=== PATIENT | male | born 1960 | race Caucasian/White ===

== ENCOUNTER 2017-03-16 10:15 | Inpatient (IN) | payer OTHER ==
[~2017-03-16] VITALS: Ht 180.3 cm; Wt 103.0 kg
[~2017-03-16 10:15] MED LIST: ASPEC81 PO; CYCL10TA6 PO; FLAX100025 PO; GARL400T4 PO; IBUP-103 PO; LISI-787 PO; METF-384 PO; MULT-506 PO; OMEGCAP2 PO
[2017-03-16] MEDS ORDERED: ALLO300T2 PO (10:48)
[2017-03-16] MEDS ORDERED: LOSA50TA6 PO (10:49)
[2017-03-16] MEDS ORDERED: CRS/10 PO (10:50)
[2017-03-16] MEDS ORDERED: AMLO-110 PO (10:51)
[2017-03-16 10:52] LABS: HEMATOCRIT 42.3 % (42-52); MEAN CELL VOLUME 93.4 fL (80-100); MEAN CORPUSCULAR HEMOGLOBIN 32.5 pg (25-34); MEAN CORPUSCULAR HGB CONC 34.8 g/dl (32-36); MEAN PLATELET VOLUME 10.5 fL (7.4-10.4); PLATELET COUNT 208 K/uL (130-400); RED BLOOD COUNT 4.53 M/uL (4.7-6.1); WHITE BLOOD COUNT 6.03 K/uL (4.8-10.8)
[2017-03-16] MEDS ORDERED: ASPI81TA28 PO (10:53)
[2017-03-16] MEDS ORDERED: ASPI325T45 PO (10:53)
[2017-03-16 11:00] LABS: PARTIAL THROMBOPLASTIN RATIO 1.2; PROTHROMBIN TIME (PATIENT) 10.3 SECONDS (9.0-12.0)
[2017-03-16 11:07] LABS: BUN/CREATININE RATIO 13.8 (10-20); CALCIUM 8.7 mg/dl (8.5-10.1)
[2017-03-16 11:12] LABS: ALB/GLOB RATIO 1.1 (0.9-2); CKMB/CK RATIO 3.4 (0-3.0)
--- NOTE | 2017-03-16 11:16 | DIAGNOSTIC IMAGING REPORT ---
CHEST ONE VIEW PORTABLE CLINICAL HISTORY: Atypical chest pain. Back pain. Sweating. COMPARISON STUDY: 08/25/2014 FINDINGS: The heart is the upper limits of normal in size. There is no failure. No focal pulmonary consolidation. There are no pleural effusions.[ IMPRESSION: No active disease in the chest. Electronically signed by: Tyrell Newell M.D. 03/16/2017 11:15 AM Dictated Date/Time: 03/16/2017 11:14 AM
[2017-03-16] MEDS ORDERED: NITROGLYCERIN 0.4 MG SL PER TAB CHARGE SL PRN (11:30)
[2017-03-16] MEDS ORDERED: OPTIRAY 320 IV PRN (11:45)
--- NOTE | 2017-03-16 12:23 | DIAGNOSTIC IMAGING REPORT ---
CT ANGIOGRAPHY THE CHEST WITHOUT AND WITH CONTRAST CLINICAL HISTORY: Chest pain rating to the back. Hypertension. COMPARISON STUDY: Noncontrast chest CT dated 08/31/2013 FINDINGS: Unenhanced images are obtained through the chest. The study was then repeated in a dynamic helical fashion during intravenous administration of 91 cc Optiray 320. MIP imaging was performed. On noncontrast images, there is no evidence of acute aortic hematoma. There are coronary artery calcifications present. Postcontrast images reveal no evidence of thoracic aortic aneurysm or dissection. There are no findings to indicate acute pulmonary embolism. No pathologically enlarged axillary, hilar, or mediastinal lymph nodes are visualized. There is no pneumothorax. There is pulmonary emphysema. There are dependent atelectatic changes. There are no pleural effusions. There are no areas of airspace consolidation to indicate a pneumonia. There is a 7 x 4 mm tubular opacity within the left upper lobe as visualized in image #[id number]. This area was obscured the prior 2013 study secondary to a pneumonia. There is a calcified granuloma within the right lung apex. There is a 3 mm solid left lower lobe point nodule as visualized in image #[id number]. This nodule remains unchanged from the prior 2013 study. There is a calcified granuloma within the lingula. IMPRESSION: 1. No evidence of thoracic aortic aneurysm or dissection 2. Emphysema 3. 7 x 4 mm solid, elliptical nodule within the left upper lobe. Follow-up per Fleischner criteria is recommended. Please refer to below summary of Fleischner criteria recommendations for follow-up of incidental CT nodules (Braulio Flores, Guidelines for management of small pulmonary nodules detected on CT scans: A statement from the Fleischner Society, Radiology 237: [phone].) SOLID NODULES Solitary nodule size: <6 mm * low risk patients: no follow-up needed * high risk patients: optional CT at 12 months Solitary nodule size: 6-8 mm * low risk patients: follow-up at 6-12 months, then consider further follow-up at 18-24 months * high risk patients: initial follow-up CT at 6-12 months and then at 18-24 months if no change Solitary nodule size: >8 mm * either low or high risk patients - consider follow-up CT at 3 months, and/or CT-PET, and/or biopsy Multiple nodules size: <6 mm * low risk patients: no routine follow-up * high risk patients: optional CT at 12 months Multiple nodules size: 6-8 mm * low risk patients: follow-up at 3-6 months, then consider further follow-up at 18-24 months * high risk patients: follow-up at 3-6 months, then at 18-24 months if no change Multiple nodules size: >8 mm * low risk patients: follow-up at 3-6 months, then consider further follow-up at 18-24 months * high risk patients: follow-up at 3-6 months, then at 18-24 months if no change Note: newly detected indeterminate nodule in persons 35 years of age or older. * low risk patients: minimal or absent history of smoking and/or other known risk factors * high risk patients: history of smoking or of other known risk factors (e.g. first degree relative with lung cancer, or exposure to asbestos, radon, uranium) * if a nodule up to 8 mm is partly solid or is ground glass further follow-up is required after 24 months to exclude possible slow growing adenocarcinoma (RAFA) SUBSOLID NODULES Solitary pure ground-glass nodule * nodule size <6 mm - no CT follow-up required * nodule size >=6 mm - follow-up CT at 6-12 months, then every 2 years until 5 years Solitary part-solid nodule * nodule size <6 mm - no CT follow-up required * nodule size >=6 mm - follow-up CT at 3-6 months. If unchanged, and solid component remains <6 mm, then annual follow-up for 5 years Multiple subsolid nodules * nodule size <6 mm - follow-up CT at 3-6 months, consider further follow-up at 2 and 4 years if stable * nodule size >=6 mm - follow-up CT at 3-6 months, subsequent management based on the most suspicious nodule(s) Electronically signed by: Tyrell Newell M.D. 03/16/2017 12:22 PM Dictated Date/Time: 03/16/2017 12:12 PM
--- NOTE | 2017-03-16 12:24 | DIAGNOSTIC IMAGING REPORT ---
CT ANGIOGRAM OF THE ABDOMEN AND PELVIS CLINICAL HISTORY: Atypical chest pain radiating to the back. COMPARISON STUDY: Abdominal CT dated 10/02/2009. TECHNIQUE: Following the IV administration of 91 cc of Optiray 320, CT angiogram of the abdomen and pelvis was performed from the lung bases the proximal femora. Images are reviewed in the axial, sagittal, and coronal planes. 3-D MIPS images are created and assessed. IV contrast was administered without complication. FINDINGS: Lower chest: The heart is normal in size and without pericardial effusion. There is bibasilar atelectasis. The lung bases are otherwise clear. Liver: The contrast-enhanced liver is enlarged, measuring 19.6 cm in length. The liver demonstrates diffusely diminished attenuation consistent with hepatic steatosis. Fatty sparing is noted adjacent to gallbladder fossa. There is no intrahepatic or ductal dilatation. The main portal veins appear patent. Gallbladder: Small gallstones are identified. The gallbladder is otherwise normal in appearance. Spleen: The spleen is enlarged measuring 15.4 cm in length. Pancreas: Unremarkable. Adrenal glands: Unremarkable. Kidneys: The contrast enhanced kidneys demonstrate cortical atrophy and are without hydronephrosis. The kidneys enhance symmetrically. There are bilateral renal cysts. The largest is on the right and measures up to 3.6 cm. Abdominal aorta and iliac arteries: There is moderate atherosclerotic calcification and mild ectasia of the abdominal aorta and iliac arteries. There is less than 50% luminal narrowing in the distal abdominal aorta secondary to soft plaque. There is also less than 50% stenosis of the left common iliac artery secondary to soft plaque. There is no aneurysm or dissection is seen involving the abdominal aorta or iliac arteries. The right common iliac artery, as well as the bilateral internal and extra iliac arteries and in the bilateral common femoral arteries are widely patent. Major branches of the abdominal aorta: The celiac trunk, superior mesenteric, and inferior mesenteric arteries are widely patent. Hepatic arterial anatomy is conventional. The splenic artery is patent. Single bilateral renal arteries are widely patent. Bowel: The small bowel and colon are normal in course and caliber. There is mild colonic diverticulosis without CT evidence of acute diverticulitis. Mild to moderate colonic fecal retention is observed. The appendix is surgically absent. Peritoneum: There is no intraperitoneal free air or abdominal ascites. There is a small fat-containing umbilical hernia. Lymphadenopathy: None. Pelvic viscera: The bladder, prostate, and seminal vesicles are normal as imaged. Skeletal structures: The skeletal structures are osteopenic. Mild lumbosacral spondylosis is observed. No lytic or blastic bony lesions are seen. IMPRESSION: 1. Atherosclerotic plaque with no aneurysm or dissection identified involving the abdominal aorta. 2. Unremarkable CT angiogram of the major branches of the abdominal aorta. 3. There are no acute infectious or inflammatory findings in the abdomen or pelvis. 4. Hepatomegaly and hepatic steatosis. 5. Splenomegaly. 6. Mild colonic diverticulosis without CT evidence of acute diverticulitis. 7. Additional findings as above. Electronically signed by: Marty Womack M.D. 03/16/2017 12:23 PM Dictated Date/Time: 03/16/2017 12:12 PM
[2017-03-16 12:30] VITALS: O2SAT 98; Ht 180.3 cm; Wt 103.0 kg
[2017-03-16] MEDS ORDERED: ONDANSETRON INJ 2 MG/ML 2 ML VIAL IV PRN (13:00)
[2017-03-16] MEDS ORDERED: GLUCAGON FOR INJ 1 MG VIAL SQ PRN (13:30)
[2017-03-16] MEDS ORDERED: GLUCOSE 40% GEL 15 GM TUBE PO PRN (13:30)
[2017-03-16] MEDS ORDERED: GLUCOSE 10 TABS/TUBE PO PRN (13:30)
[2017-03-16] MEDS ORDERED: DEXTROSE 50% 50 ML SYR IV PRN (13:30)
--- NOTE | 2017-03-16 13:58 | History and Physical ---
History & Physical Date & Time of Service: Mar 16, 2017 ~ 12:30 Chief Complaint: Chest/Back Pain, Sweating, Dry Heaves Primary Care Physician: Harsh Perez M.D.([place]) History of Present Illness 57 year old male who presents to the ER with chest and back pain, diaphoresis, and dry heaves. Patient reports his symptoms began last night while sitting on the couch. He reports they came on suddenly. He reports he felt the back pain first. He describes it as located between his shoulder blades and it was a stabbing pain. He reports that shortly after he developed left sided chest pressure that was radiating into his left arm. He felt as though his heart was beating hard. He reports associated diaphoresis and nausea with dry heaves. He denies shortness of breath, lightheadedness, dizziness, or syncope. He reports several of these episodes last night. He notes that his symptoms got better when he was walking around or if he were to lay in a certain position. He was able to fall asleep and sleep until about 0530. He reports he was initial asymptomatic however they returned around 0730 this morning. He then presented for the ER for evaluation. He was given nitroglycerin and had significant improvement in his pain. Patient reports he otherwise has been feeling well recently. He reports tolerating daily activities without any problem. He denies lower extremity edema or orthopnea. No fever or chills. He denies abdominal pain , vomiting, or diarrhea. No urinary symptoms. In the ER, patient's BP was elevated as high as 202/106. BP improved with nitro. CT was negative for dissection. POC trop 0.230, EKG shows an old RBBB. Of note, patient took a full doses aspirin at home this morning. 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 Surgical Problems: (1) History of appendectomy Status: Chronic Family History FH: CABG (coronary artery bypass surgery) FATHER (in his late 70s) negative for premature CAD Social History Smoking Status: Current Every Day Smoker (1/2 PPD) Alcohol Use: 3 drinks/night 3-4 times/week Occupational Status: employed Immunizations History of Influenza Vaccine: Yes Influenza Vaccine Date: Oct 18, 2015 History of Tetanus Vaccine?: Yes Tetanus Immunization Date: Jun 02, 2013 History of Pneumococcal: Yes Pneumococcal Date: May 26, 2007 Multi-Drug Resistant Organisms History of MDRO: No Allergies Coded Allergies: Albuterol (Verified Allergy, Severe, SHORTNESS OF BREATH/THROAT CLOSING, ) Ipratropium (Verified Allergy, Severe, SHORTNESS OF BREATH/THROAT CLOSING , 03/16/17) Home Medications Scheduled Allopurinol (Zyloprim), 300 MG PO DAILY Amlodipine (Norvasc), 5 MG PO DAILY Aspirin (Aspirin Ec), 81 MG PO DAILY Losartan Potassium (Cozaar), 50 MG PO DAILY Metformin Hcl (Glucophage), 1,000 MG PO DAILY Multivitamin (Multivitamin), 1 TAB PO DAILY [place]-3 Fatty Acids (Fish Oil), 2 CAP PO DAILY Rosuvastatin Calcium (Crestor), 10 MG PO DAILY Scheduled PRN Ibuprofen Tab (Advil), 200-600 MG PO Q4H PRN for Pain Review of Systems ROS per HPI, all other systems reviewed and negative Physical Exam Vital Signs Date Time Temp Pulse Resp B/P (MAP) Pulse Ox O2 Delivery O2 Flow Rate FiO2 03/16/17 13:06 67 03/16/17 12:53 71 18 118/82 98 Room Air 03/16/17 12:30 98 Room Air 03/16/17 12:26 77 16 133/76 97 Room Air 03/16/17 11:44 77 16 154/86 95 Room Air 03/16/17 11:23 70 16 184/95 97 Room Air 202/106 03/16/17 11:11 68 03/16/17 10:46 96 Room Air 03/16/17 10:20 36.9 80 18 149/80 97 Room Air General Appearance: no apparent distress Head: normocephalic Eyes: normal inspection ENT: hearing grossly normal Neck: supple, no JVD Respiratory/Chest: lungs clear, normal breath sounds, no respiratory distress Cardiovascular: regular rate, rhythm, no edema, normal peripheral pulses Abdomen/GI: normal bowel sounds, non tender, soft Extremities/Musculoskelatal: normal inspection, no calf tenderness Neurologic/Psych: no motor/sensory deficits, alert, normal mood/affect, oriented x 3 Skin: normal color, warm/dry Diagnostics Laboratory Results Results Past 24 Hours Test 03/16/17 10:35 03/16/17 10:45 03/16/17 13:03 03/16/17 13:04 Range/Units White Blood Count 6.03 4.8-10.8 K/uL Red Blood Count 4.53 4.7-6.1 M/uL Hemoglobin 14.7 14.0-18.0 g/dL Hematocrit 42.3 42-52 % Mean Corpuscular Volume 93.4 80-100 fL Mean Corpuscular Hemoglobin 32.5 25-34 pg Mean Corpuscular Hemoglobin Concent 34.8 32-36 g/dl RDW Standard Deviation 43.0 36.4-46.3 fL RDW Coefficient of Variation 12.7 11.5-14.5 % Platelet Count 208 130-400 K/uL Mean Platelet Volume 10.5 7.4-10.4 fL Prothrombin Time 10.3 9.0-12.0 SECONDS Prothromb Time International Ratio 1.0 0.9-1.1 Activated Partial Thromboplast Time 31.7 21.0-31.0 SECONDS Partial Thromboplastin Ratio 1.2 Sodium Level 139 136-145 mmol/L Potassium Level 4.0 3.5-5.1 mmol/L Chloride Level 105 98-107 mmol/L Carbon Dioxide Level 25 21-32 mmol/L Anion Gap 9.0 3-11 mmol/L Blood Urea Nitrogen 14 7-18 mg/dl Creatinine 1.00 0.60-1.40 mg/dl Est Creatinine Clear Calc Drug Dose 97.4 ml/min Estimated GFR () 95.1 Estimated GFR (Non- 82.0 BUN/Creatinine Ratio 13.8 10-20 Random Glucose 216 70-99 mg/dl Calcium Level 8.7 8.5-10.1 mg/dl Total Bilirubin 0.7 0.2-1 mg/dl Aspartate Amino Transf (AST/SGOT) 16 15-37 U/L Alanine Aminotransferase (ALT/SGPT) 37 12-78 U/L Alkaline Phosphatase 92 45-117 U/L Total Creatine Kinase 73 39-308 U/L Creatine Kinase MB 2.5 0.5-3.6 ng/ml Creatine Kinase MB Ratio 0-3.0 Total Protein 7.1 6.4-8.2 gm/dl Albumin 3.7 3.4-5.0 gm/dl Globulin 3.4 2.5-4.0 gm/dl Albumin/Globulin Ratio 1.1 0.9-2 Bedside Troponin I 0.230 0-0.045 ng/ml Diagnostic Radiology CXR IMPRESSION: No active disease in the chest. CTA CHEST IMPRESSION: 1. No evidence of thoracic aortic aneurysm or dissection 2. Emphysema 3. 7 x 4 mm solid, elliptical nodule within the left upper lobe. Follow-up per Fleischner criteria is recommended. CTA ABD/PELVIS IMPRESSION: 1. Atherosclerotic plaque with no aneurysm or dissection identified involving the abdominal aorta. 2. Unremarkable CT angiogram of the major branches of the abdominal aorta. 3. There are no acute infectious or inflammatory findings in the abdomen or pelvis. 4. Hepatomegaly and hepatic steatosis. 5. Splenomegaly. 6. Mild colonic diverticulosis without CT evidence of acute diverticulitis. 7. Additional findings as above. Impression Assessment and Plan CHEST PAIN - admit to tele - patient presenting with chest and back pain since last evening; symptoms somewhat atypical however due to elevated troponin and patient's risk factors ( HTN, DM, HLD, tobacco use), will go ahead treat as NSTEMI for now - CT negative for dissection - also consider hypertensive urgency as source of symptoms - POC trop 0.230, will check serum and continue to cycle enzymes - IV Heparin, increase Crestor to 40mg, aspirin - holing on beta rachel due to hx of WPW - resting echo - PRN nitro and EKG with further chest pain - cardio consult HYPERTENSIVE URGENCY - BP as high as 202/106 in the ED - improved with SL nitro - for now, will continue home doses of losartan and amlodipine, make adjustments if needed DM II - hgb a1c 6.3 01/2016 - will hold metformin an utilize SSI while hospitalized HLD - statin HX WPW, S/P ABLATION DVT PROPHYLAXIS - IV Heparin DISPO - In my clinical judgment this beneficiary meets acute admission criteria, established by [facility], that includes being hospitalized through two midnights. Attending Note: Patient is a 57 yr male presents for evaluation of sudden onset of left sided sharp, positional chest pain and back pain associated with diaphoresis, nausea which improved with NTG while in ED. He presented with Hypertensive Urgency, mild elevation in troponin. Physical Exam: Vitals signs as noted above General Appearance:Moderately built and nourished, no apparent distress Head: normocephalic, Atraumatic Eyes: normal inspection, EOMI, PERRL Neck: supple, no JVD, Trachea midline Respiratory/Chest: Normal breath sounds, CTA Cardiovascular: S1, S2, No murmur Abdomen/GI:Soft, Non tender, Bowel sounds present Extremities/Musculoskelatal:normal inspection, no edema Neurologic/Psych:AAOX3, grossly no focal neurological deficits Skin:normal color,warm Assessment and Plan: Atypical chest pain: r/o ACS Risk factors: DM II, HTN, HLP, Tobacco and alcohol use Start IV Heparin, trend cardiac enzymes Monitor in Tele Check ECHO, cardiology consulted Continue Aspirin, stains Imaging studies negative for dissection Left Upper Lobe Pulmonary Nodule: Incidental finding on CT Given h/o smoking, repeat CT is recommended as outpatient I personally reviewed the record. Patient is interviewed and examined at bedside. Patient's care is coordinated with Leslie Alfaro DIRECTOR GLOBAL DEVELOPMENT. Please refer to the documentation above for details of patient's presentation and for discussion of other issues. Level of Care Telemetry VTE Prophylaxis VTE Risk Assessment Done? Y/N: Yes Risk Level: Moderate Given or contraindicated: Other Anticoagulation
[2017-03-16] MEDS ORDERED: PNEUMOCOCCAL POLYSACCHARIDES 25 MCG/0.5 ML VIAL/SYR IM. ONE (14:00)
[2017-03-16] MEDS ORDERED: PNEUMOCOCCAL ADMINISTRATION CHARGE ONE (14:00)
[2017-03-16 15:33] VITALS: BP 148/86; PULSE 59; TEMP 37; O2SAT 97
[2017-03-16] MEDS: HEPARIN 25,000 UNIT/500ML D5W 500 ML IV PRN (15:37)
[2017-03-16] MEDS ORDERED: NITROGLYCERIN 2% OINTMENT 30GM TUBE ONE (16:22)
--- NOTE | 2017-03-16 16:34 | Cardiology Consultation ---
Cardiology Consultation Date of Consultation: Mar 16, 2017 Requesting Physician: seven Attending Circular Ripsaw Operator: gavin History of Present Illness Patient is a 57 year old male S/P ablation for WPW in 2006 presents with upper back pain radiating to chest. Started last night and resolved and then began again this AM. No prior hx of CAD. Negative CT for dissection and aneurysm. Troponin slightly elevated. Old RBBB on EKG. History Social History: Smoker Family History: Significant for HPT and Cholesterol. Past Medical/Surgical History Problem List: Medical Problems: (1) DM (diabetes mellitus) (2) Gout (3) HLD (hyperlipidemia) (4) HTN (hypertension) (5) WPW (Andrg-Zrmvxcvfl-Ioobf syndrome) Surgical Problems: (1) History of appendectomy Review Of Systems General: The patient denies weight change, night sweats, fever, chills. Head: The patient denies headache and prior head trauma. Cardiovascular: The patient denies chest pain or chest discomfort, dyspnea on exertion, palpitations, PND, orthopnea, edema, spontaneous shortness of breath, syncope and near syncope. Pulmonary: The patient denies cough, wheeze, pleurisy, hemoptysis, sputum, and excessive snoring. Gastrointestinal: The patient denies nausea, vomiting, diarrhea, constipation, bloating, hematemesis, hematochezia, and abdominal pain. Skin: The patient denies diaphoresis and rash. Musculoskeletal: The patient denies joint pain, joint swelling, myalgia, back pain, neck pain and prior injuries. Neurological: The patient denies prior stroke and seizures Allergies Coded Allergies: Albuterol (Verified Allergy, Severe, SHORTNESS OF BREATH/THROAT CLOSING, ) Ipratropium (Verified Allergy, Severe, SHORTNESS OF BREATH/THROAT CLOSING , 03/16/17) Medications Reported Home Medications Medications Dose Route/Sig Max Daily Dose Days Date Category Aspirin Ec (Aspirin) 81 Mg Tab 81 Mg PO DAILY 03/16/17 Reported Norvasc (Amlodipine Besylate) 5 Mg Tab 5 Mg PO DAILY 03/16/17 Reported Crestor (Rosuvastatin Calcium) 10 Mg Tab 10 Mg PO DAILY 03/16/17 Reported Cozaar (Losartan Potassium) 50 Mg Tab 50 Mg PO DAILY 03/16/17 Reported Zyloprim (Allopurinol) 300 Mg Tab 300 Mg PO DAILY 03/16/17 Reported Advil (Ibuprofen) 200 Mg Tab 200-600 Mg PO Q4H PRN 08/25/14 Reported Glucophage (Metformin Hcl) 1,000 Mg Tab 1,000 Mg PO DAILY 08/25/14 Reported Fish Oil ([place]-3 Fatty Acids) 1 Cap Cap 2 Cap PO DAILY 08/18/13 Reported Multivitamin (Multivitamins) Tab 1 Tab PO DAILY 10/02/09 Reported Physical Exam Vital Signs (Last 8hrs): Last 8 Hrs Date Time Temp Pulse Resp B/P (MAP) Pulse Ox O2 Delivery O2 Flow Rate FiO2 03/16/17 15:33 37.0 59 19 148/86 (106) 97 Room Air 03/16/17 15:32 36.9 67 16 126/77 96 03/16/17 14:56 67 16 126/77 96 Room Air 03/16/17 13:06 67 03/16/17 12:53 71 18 118/82 98 Room Air 03/16/17 12:30 98 Room Air 03/16/17 12:26 77 16 133/76 97 Room Air 03/16/17 11:44 77 16 154/86 95 Room Air 03/16/17 11:23 70 16 184/95 97 Room Air 202/106 03/16/17 11:11 68 03/16/17 10:46 96 Room Air 03/16/17 10:20 36.9 80 18 149/80 97 Room Air General Appearance: Alert and Oriented x3. NAD. Head: Normocephalic Atraumatic. Eyes: PERRLA, EOMI, conjunctiva and sclera clear Neck: Supple. No carotid bruits noted. No JVD. No HJD. Respiratory: Breath sounds clear to auscultation bilaterally. No w/r/r. Cardiovascular: Reg rate and rhythm. S1 and S2 noted. No murmurs, rubs, gallops. PMI non displace. Abdomen: Normal bowel sounds, soft nontender. no abdominal bruits. Extremities: No edema, no clubbing or cyanosis. distal pulses 2/4 bilaterally. Neuro: No focal deficits. Psychiatric: Normal affect. Data Last 24 Hours Test 03/16/17 10:35 03/16/17 10:45 03/16/17 16:00 White Blood Count 6.03 K/uL Red Blood Count 4.53 M/uL Hemoglobin 14.7 g/dL Hematocrit 42.3 % Mean Corpuscular Volume 93.4 fL Mean Corpuscular Hemoglobin 32.5 pg Mean Corpuscular Hemoglobin Concent 34.8 g/dl RDW Standard Deviation 43.0 fL RDW Coefficient of Variation 12.7 % Platelet Count 208 K/uL Mean Platelet Volume 10.5 fL Prothrombin Time 10.3 SECONDS Prothromb Time International Ratio 1.0 Activated Partial Thromboplast Time 31.7 SECONDS Partial Thromboplastin Ratio 1.2 Sodium Level 139 mmol/L Potassium Level 4.0 mmol/L Chloride Level 105 mmol/L Carbon Dioxide Level 25 mmol/L Anion Gap 9.0 mmol/L Blood Urea Nitrogen 14 mg/dl Creatinine 1.00 mg/dl Est Creatinine Clear Calc Drug Dose 97.4 ml/min Estimated GFR () 95.1 Estimated GFR (Non- 82.0 BUN/Creatinine Ratio 13.8 Random Glucose 216 mg/dl Calcium Level 8.7 mg/dl Total Bilirubin 0.7 mg/dl Aspartate Amino Transf (AST/SGOT) 16 U/L Alanine Aminotransferase (ALT/SGPT) 37 U/L Alkaline Phosphatase 92 U/L Total Creatine Kinase 73 U/L Creatine Kinase MB 2.5 ng/ml Creatine Kinase MB Ratio 3.4 Troponin I 0.302 ng/ml Total Protein 7.1 gm/dl Albumin 3.7 gm/dl Globulin 3.4 gm/dl Albumin/Globulin Ratio 1.1 Bedside Troponin I 0.230 ng/ml EKG:sinus RBBB Assessment & Plan R/O ACS. Continue cardiac markers. Beta rachel and nitrates. Agree with heparin
[2017-03-16] MEDS: ROSUVASTATIN CALCIUM 20 MG TAB PO SCH (17:47)
[2017-03-16] MEDS: INSULIN ASPART 100 UNITS/ML 3 ML PEN SC SCH ×2 (17:51→20:46)
--- NOTE | 2017-03-16 18:48 | EMERGENCY ROOM VISIT NOTE ---
ED Visit Note First contact with patient: 10:59 Chief Complaint: Chest pain. History of Present Illness: Mr. Davila is a 57 year-old white male who ambulates into the ED complaining of thoracic back and chest pain. 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 He does report he has a history of diabetes, hypertension, dyslipidemia and is a smoker. He reports his father had significant coronary artery disease and from this but does not remember his age. Patient reports an acute onset of thoracic pain that started at rest approximately 12 hours ago. He reports within a minute of the onset of pain his discomfort radiated into the midsternal area. He describes his discomfort as a stabbing sensation in the thoracic back and a pressure sensation in the chest. At that time he rates his discomfort 8/10. He did note mild improvement when he was sitting up and worsening when he was lying down. He did not take any medications for this discomfort. He reports the pain lasted 5- 6 minutes and then self resolved. Since that time the pain has been he reports he's had additional 5 or 6 episodes of similar symptoms. This morning after waking, approximately 25 minutes ago he had return of his symptoms and it has been constant since. He reports he took 324 mg of aspirin at home prior to coming to the hospital; he reports this is has not affected his discomfort prior to arrival at the hospital. Currently he rates his discomfort 7/10. His current discomfort is exactly like the discomfort he had last night except for has not resolved. Additionally associated with his pain he reports he has been intermittently diaphoretic and mildly lightheaded. Patient denies fevers, chills, skin eruptions, skin color changes, upper respiratory tract symptoms, wheezing, cough, shortness of breath, orthopnea, dependent edema, previous clots, claudication, cramping, recent surgery/ inactivity/extended travel, abdominal pain, nausea, vomiting, diarrhea, constipation, rectal bleeding, black/tarry stools, urinary symptoms, back/flank pain. Review of Systems: As noted above in history of present illness. All body systems were reviewed and found to be negative as noted above. Past Medical History: As previously noted and: (1) DM (diabetes mellitus) (2) Gout (3) HLD (hyperlipidemia) (4) HTN (hypertension) (5) WPW (Yjvme-Quzlescfq-Veutt syndrome) Surgical Problems: (1) History of appendectomy Current Medications: Medications Dose Route/Sig Max Daily Dose Days Date Category Aspirin Ec (Aspirin) 81 Mg Tab 81 Mg PO DAILY 03/16/17 Reported Norvasc (Amlodipine Besylate) 5 Mg Tab 5 Mg PO DAILY 03/16/17 Reported Crestor (Rosuvastatin Calcium) 10 Mg Tab 10 Mg PO DAILY 03/16/17 Reported Cozaar (Losartan Potassium) 50 Mg Tab 50 Mg PO DAILY 03/16/17 Reported Zyloprim (Allopurinol) 300 Mg Tab 300 Mg PO DAILY 03/16/17 Reported Advil (Ibuprofen) 200 Mg Tab 200-600 Mg PO Q4H PRN 08/25/14 Reported Glucophage (Metformin Hcl) 1,000 Mg Tab 1,000 Mg PO DAILY 08/25/14 Reported Fish Oil (Luana-3 Fatty Acids) 1 Cap Cap 2 Cap PO DAILY 08/18/13 Reported Multivitamin (Multivitamins) Tab 1 Tab PO DAILY 10/02/09 Reported Allergies to Medications: Albuterol, ipratropium. Social History: Patient is currently employed; he feels safe in his home environment; he admits to tobacco and alcohol use. Physical Examination: Vital Signs: Date Time Temp Pulse Resp B/P (MAP) Pulse Ox O2 Delivery O2 Flow Rate FiO2 03/16/17 12:53 71 18 118/82 98 Room Air 03/16/17 12:30 98 Room Air 03/16/17 12:26 77 16 133/76 97 Room Air 03/16/17 11:44 77 16 154/86 95 Room Air 03/16/17 11:23 70 16 184/95 97 Room Air 202/106 03/16/17 11:11 68 03/16/17 10:46 96 Room Air 03/16/17 10:20 36.9 80 18 149/80 97 Room Air GENERAL: 57-year-old male in moderate distress due to pain, nontoxic-appearing, afebrile and hemodynamically stable. NEUROLOGICAL: Awake, alert and oriented to person, place and time. Answering questions appropriately and following commands. Normal gait. Good hand eye coordination. SKIN: Warm, dry and pink. No soft tissue eruptions or trauma noted. HEENT: Atraumatic and normocephalic. PERRLA. Sclera white and conjunctiva pink. Oral cavity moist and pink. Pharynx is nonerythematous or edematous. Speech normal. No lymphadenopathy. Trachea midline. No jugular venous distention. No carotid bruits. BACK: No tenderness over the bony spine. No CVA tenderness. THORAX: Lungs sounds are clear to auscultation and equal bilaterally with symmetrical chest wall. No wheezing, rales or rhonchi. No crepitus, tenderness , subcutaneous air or deformities noted. HEART: Regular rate and rhythm. No gallops, rubs or murmurs are appreciated. No lifts, heaves or thrills. PMI is not displaced. ABDOMEN: Flat, soft and nontender. Positive bowel sounds in all quadrants. No pulsating masses, guarding, rigidity or organomegaly. EXTREMITIES: Moves all extremities well on command and with purpose. All distal neurovascular statuses are intact and equal bilaterally. No dependent edema or calf tenderness/cords. ED Course: Patient is assessed as noted above. Laboratory Testing: Test 03/16/17 10:35 03/16/17 10:45 Range/Units White Blood Count 6.03 4.8-10.8 K/uL Red Blood Count 4.53 4.7-6.1 M/uL Hemoglobin 14.7 14.0-18.0 g/dL Hematocrit 42.3 42-52 % Mean Corpuscular Volume 93.4 80-100 fL Mean Corpuscular Hemoglobin 32.5 25-34 pg Mean Corpuscular Hemoglobin Concent 34.8 32-36 g/dl RDW Standard Deviation 43.0 36.4-46.3 fL RDW Coefficient of Variation 12.7 11.5-14.5 % Platelet Count 208 130-400 K/uL Mean Platelet Volume 10.5 7.4-10.4 fL Prothrombin Time 10.3 9.0-12.0 SECONDS Prothromb Time International Ratio 1.0 0.9-1.1 Activated Partial Thromboplast Time 31.7 21.0-31.0 SECONDS Partial Thromboplastin Ratio 1.2 Sodium Level 139 136-145 mmol/L Potassium Level 4.0 3.5-5.1 mmol/L Chloride Level 105 98-107 mmol/L Carbon Dioxide Level 25 21-32 mmol/L Anion Gap 9.0 3-11 mmol/L Blood Urea Nitrogen 14 7-18 mg/dl Creatinine 1.00 0.60-1.40 mg/dl Est Creatinine Clear Calc Drug Dose 97.4 ml/min Estimated GFR () 95.1 Estimated GFR (Non- 82.0 BUN/Creatinine Ratio 13.8 10-20 Random Glucose 216 70-99 mg/dl Calcium Level 8.7 8.5-10.1 mg/dl Total Bilirubin 0.7 0.2-1 mg/dl Aspartate Amino Transf (AST/SGOT) 16 15-37 U/L Alanine Aminotransferase (ALT/SGPT) 37 12-78 U/L Alkaline Phosphatase 92 45-117 U/L Total Creatine Kinase 73 39-308 U/L Creatine Kinase MB 2.5 0.5-3.6 ng/ml Creatine Kinase MB Ratio 3.4 0-3.0 Troponin I 0.302 0-0.045 ng/ml Total Protein 7.1 6.4-8.2 gm/dl Albumin 3.7 3.4-5.0 gm/dl Globulin 3.4 2.5-4.0 gm/dl Albumin/Globulin Ratio 1.1 0.9-2 Hepatitis C Antibody Screen NEG NEG Bedside Troponin I 0.230 0-0.045 ng/ml Chest X-Ray: Was read by myself and the radiologist showing no acute infiltrates , effusions or pneumothorax. Normal heart silhouette and bony anatomy. Chest/Abdominal CTA: Was reviewed by myself and read by the radiologist showing atherosclerotic plaque but no aneurysm or dissection of the thoracic or abdominal aorta. EKG: Was read by myself and reviewed with Dr. rangel; shows normal sinus rhythm with a right bundle-branch block. Ventricular rate [address] changes indicating ischemia, injury or infarction. This was compared to previous from August 2014 and shows no acute changes. No significant changes in bilateral upper extremity blood pressures. Patient was hydrated with normal saline and he was given a nitroglycerin trial; 0.4 mg every 5 minutes for pain. After his trial he subjectively reported he was feeling better but was still experiencing some back discomfort. Additionally in reviewing his vital signs he had a significant improvement of his hypertension. Patient was reassessed multiple times during his stay in the emergency department. Patient's case was reviewed with Dr. Rangel; we agreed on diagnostic approach , treatment, disposition and plan. Patient's case was consulted with case management and Dr. Anderson, hospitalist , for medical admission/observation. Patient was educated about today's findings and instructed on his treatment plan ; he verbalized understanding and agreement with this plan. Clinical Impression: Non-ST wave elevation CT. Decision-Making: Initially my differential diagnosis I considered acute coronary syndrome, thoracic aneurysm, pneumothorax, pneumonia, pulmonary embolism, musculoskeletal disorder, pancreatitis and other causes. Disposition and Plan: Patient be brought in the hospital by the hospitalist service; please see their notes and orders for final disposition and plan.
[2017-03-16 19:13] VITALS: BP 132/72; PULSE 73; TEMP 37.2; O2SAT 95
[2017-03-16] MEDS: ACETAMINOPHEN 325 MG TAB PO PRN (20:47)
[2017-03-16] MEDS: METOPROLOL TARTRATE 25 MG TAB PO SCH (20:49)
[2017-03-16 20:50] VITALS: BP 133/79; PULSE 63
[2017-03-16 22:12] LABS: PARTIAL THROMBOPLASTIN RATIO 2.1
[2017-03-16 23:32] VITALS: BP 119/81; PULSE 59; TEMP 36.8; O2SAT 95
[2017-03-17] VITALS (11 sets, daily range): BP systolic 116–149; BP diastolic 69–99; PULSE 62–71; TEMP 36.4–37.2; O2SAT 93–97
[2017-03-17] MEDS ORDERED: NITROGLYCERIN OINT 2% 1GM PACKET EXT SCH
[2017-03-17 06:28] LABS: ESTIMATED AVERAGE GLUCOSE 140 mg/dl; HA1C FLAG Normal (Normal)
[2017-03-17] MEDS: HEPARIN 25,000 UNIT/500ML D5W 500 ML IV PRN (06:32)
[2017-03-17 06:38] LABS: HEMATOCRIT 40.6 % (42-52); MEAN CORPUSCULAR HEMOGLOBIN 32.4 pg (25-34); MEAN CORPUSCULAR HGB CONC 34.5 g/dl (32-36); MEAN PLATELET VOLUME 10.4 fL (7.4-10.4); PLATELET COUNT 187 K/uL (130-400); RED BLOOD COUNT 4.32 M/uL (4.7-6.1); WHITE BLOOD COUNT 5.53 K/uL (4.8-10.8)
[2017-03-17 06:57] LABS: PARTIAL THROMBOPLASTIN RATIO 2.2
[2017-03-17 07:08] LABS: BUN/CREATININE RATIO 17.8 (10-20); CALCIUM 8.6 mg/dl (8.5-10.1); CREATININE 0.75 mg/dl (0.60-1.40); POTASSIUM 3.7 mmol/L (3.5-5.1)
[2017-03-17 07:11] LABS: CHOLESTEROL/HDL RATIO 6.3
[2017-03-17] MEDS: ASPIRIN 81 MG ECTAB PO SCH (07:54)
[2017-03-17] MEDS: METOPROLOL TARTRATE 25 MG TAB PO SCH ×2 (07:54→22:07)
[2017-03-17] MEDS: LOSARTAN POTASSIUM 50 MG TAB PO SCH (07:54)
[2017-03-17] MEDS: ROSUVASTATIN CALCIUM 20 MG TAB PO SCH (07:54)
[2017-03-17] MEDS: MULTIVITAMIN TAB PO SCH (07:55)
[2017-03-17] MEDS: OMEGA-3 (PURIFIED FISH OIL) 1 GM CAP PO SCH (07:55)
[2017-03-17] MEDS: ALLOPURINOL 300 MG TAB PO SCH (07:55)
[2017-03-17] MEDS: AMLODIPINE BESYLATE 5 MG TAB PO SCH (07:55)
[2017-03-17] MEDS: INSULIN ASPART 100 UNITS/ML 3 ML PEN SC SCH ×4 (08:03→21:00)
[2017-03-17] MEDS: ACETAMINOPHEN 325 MG TAB PO PRN (08:04)
[2017-03-17] MEDS: NITROGLYCERIN 0.4 MG SL PER TAB CHARGE SL PRN ×3 (08:08→08:18)
[2017-03-17] MEDS ORDERED: METOPROLOL TARTRATE 25 MG TAB PO ONE (08:45)
[2017-03-17] MEDS ORDERED: SODIUM CHLORIDE 0.9% 1000ML 1,000 ML IV SCH ×2 (09:30→13:00)
--- NOTE | 2017-03-17 09:45 | Cardiology Follow-Up ---
Subjective General Date of Service: Mar 17, 2017. History of Present Illness The patient is a 57 year old male Allergies Coded Allergies: Albuterol (Verified Allergy, Severe, SHORTNESS OF BREATH/THROAT CLOSING, ) Ipratropium (Verified Allergy, Severe, SHORTNESS OF BREATH/THROAT CLOSING , 03/16/17) Social History Smoking Status: Current Every Day Smoker (1/2 PPD) Hx Tobacco Use In Past Year?: Yes (3 CIGARETTE/DAY) Hx Alcohol Use - Type And Amou: Yes (BOURBON/BEER, 3-4 3X/WEEK) Hx Substance Use - Type And Am: No Physical Exam Vital Signs Last Vital Signs Documentation Date Time Temp Pulse Resp B/P (MAP) Pulse Ox O2 Delivery O2 Flow Rate FiO2 03/17/17 08:19 36.6 66 19 149/99 (116) 93 Room Air Assessment and Plan Laboratory Results Last 24 Hours Test 03/16/17 10:35 03/16/17 10:45 03/16/17 16:00 03/16/17 16:15 White Blood Count 6.03 K/uL Red Blood Count 4.53 M/uL Hemoglobin 14.7 g/dL Hematocrit 42.3 % Mean Corpuscular Volume 93.4 fL Mean Corpuscular Hemoglobin 32.5 pg Mean Corpuscular Hemoglobin Concent 34.8 g/dl RDW Standard Deviation 43.0 fL RDW Coefficient of Variation 12.7 % Platelet Count 208 K/uL Mean Platelet Volume 10.5 fL Prothrombin Time 10.3 SECONDS Prothromb Time International Ratio 1.0 Activated Partial Thromboplast Time 31.7 SECONDS Partial Thromboplastin Ratio 1.2 Sodium Level 139 mmol/L Potassium Level 4.0 mmol/L Chloride Level 105 mmol/L Carbon Dioxide Level 25 mmol/L Anion Gap 9.0 mmol/L Blood Urea Nitrogen 14 mg/dl Creatinine 1.00 mg/dl Est Creatinine Clear Calc Drug Dose 97.4 ml/min Estimated GFR () 95.1 Estimated GFR (Non- 82.0 BUN/Creatinine Ratio 13.8 Random Glucose 216 mg/dl Estimated Average Glucose 140 mg/dl Hemoglobin A1c 6.5 % Calcium Level 8.7 mg/dl Total Bilirubin 0.7 mg/dl Aspartate Amino Transf (AST/SGOT) 16 U/L Alanine Aminotransferase (ALT/SGPT) 37 U/L Alkaline Phosphatase 92 U/L Total Creatine Kinase 73 U/L Creatine Kinase MB 2.5 ng/ml 2.5 ng/ml Creatine Kinase MB Ratio 3.4 Troponin I 0.302 ng/ml 0.370 ng/ml Total Protein 7.1 gm/dl Albumin 3.7 gm/dl Globulin 3.4 gm/dl Albumin/Globulin Ratio 1.1 Hepatitis C Antibody Screen NEG Bedside Troponin I 0.230 ng/ml Test 03/16/17 16:41 03/16/17 20:28 03/16/17 21:41 03/17/17 06:11 Bedside Glucose 118 mg/dl 140 mg/dl Activated Partial Thromboplast Time 54.4 SECONDS 56.9 SECONDS Partial Thromboplastin Ratio 2.1 2.2 Creatine Kinase MB 1.5 ng/ml Creatine Kinase MB Ratio Troponin I 0.336 ng/ml White Blood Count 5.53 K/uL Red Blood Count 4.32 M/uL Hemoglobin 14.0 g/dL Hematocrit 40.6 % Mean Corpuscular Volume 94.0 fL Mean Corpuscular Hemoglobin 32.4 pg Mean Corpuscular Hemoglobin Concent 34.5 g/dl RDW Standard Deviation 43.0 fL RDW Coefficient of Variation 12.5 % Platelet Count 187 K/uL Mean Platelet Volume 10.4 fL Sodium Level 139 mmol/L Potassium Level 3.7 mmol/L Chloride Level 106 mmol/L Carbon Dioxide Level 25 mmol/L Anion Gap 8.0 mmol/L Blood Urea Nitrogen 13 mg/dl Creatinine 0.75 mg/dl Est Creatinine Clear Calc Drug Dose 129.2 ml/min Estimated GFR () 116.4 Estimated GFR (Non- 100.4 BUN/Creatinine Ratio 17.8 Random Glucose 145 mg/dl Calcium Level 8.6 mg/dl Triglycerides Level 256 mg/dl Cholesterol Level 292 mg/dl HDL Cholesterol 46 mg/dl LDL Cholesterol, Calculated 195 mg/dl VLDL Cholesterol, Calculated 51 mg/dl Cholesterol/HDL Ratio 6.3 Test 03/17/17 06:19 03/17/17 08:44 Bedside Glucose 160 mg/dl
--- NOTE | 2017-03-17 09:51 | Cardiology Follow-Up ---
Subjective General Date of Service: Mar 17, 2017. Chief Complaint: follow up chest pain, NSTEMI Pt evaluation today including: conversation w/ patient, physical exam History of Present Illness The patient is a 57 year old male seen in cardiology follow up today with initial consult having been performed yesterday by Dr Juarez. Patient with symptoms of back pain, diaphoresis, and chest pain that have waxed and waned since 03/15/17. Symptoms improved to a 1/10 intensity at the time pt was admitted by the hospitalist service yesterday at about 1 pm. Overnight, topical nitroglycerin was discontinued due to headache. This am at 8- 830 am he had recurrence of his back pain, heavy, perspiration, and chest pain. Repeat EKG this am just before 7am and again at 830 am reveals continued RBBB with new lateral T wave inversions. No ST elevation. Patient received nitroglycerin SL x 3 and his am medications and he is asymptomatic at present (03/17/17, 930 am). A mild flat troponin elevation has been present x 3 at 0.3 ng/ml, most recent measurement was last night at 21:41, and repeat is pending at present. Patient had CT angio yesterday in the ED that excluded acute thoracic or abdominal aortic emergency. Diffuse atherosclerosis plaque is noted in the abdominal Aorta. Allergies Coded Allergies: Albuterol (Verified Allergy, Severe, SHORTNESS OF BREATH/THROAT CLOSING, ) Ipratropium (Verified Allergy, Severe, SHORTNESS OF BREATH/THROAT CLOSING , 03/16/17) Social History Smoking Status: Current Every Day Smoker (1/2 PPD) Hx Tobacco Use In Past Year?: Yes (3 CIGARETTE/DAY) Hx Alcohol Use - Type And Amou: Yes (BOURBON/BEER, 3-4 3X/WEEK) Hx Substance Use - Type And Am: No Physical Exam Vital Signs Last Vital Signs Documentation Date Time Temp Pulse Resp B/P (MAP) Pulse Ox O2 Delivery O2 Flow Rate FiO2 03/17/17 08:19 36.6 66 19 149/99 (116) 93 Room Air Physical Exam Constitutional: Level of Distress: NAD Neck: supple Lungs: Auscultation: no wheezing, no rales/crackles, no rhonchi Cardiovascular: Heart Auscultation: RRR, no murmurs, no rubs, no gallops Abdomen: Inspection & Palpation: soft, non-distended Musculoskeletal: normal Extremities: no edema Neurologic: Gait & Station: pertinent finding (no focal deficits ) Assessment and Plan Assessment and Plan Last Resulted 03/17/17 06:11 Last Resulted 03/17/17 06:11 Past 24 Hours Test 03/16/17 10:35 03/16/17 16:00 03/16/17 16:15 03/16/17 21:41 Range/Units Creatine Kinase MB 2.5 2.5 1.5 0.5-3.6 ng/ml Creatine Kinase MB Ratio 3.4 H 0-3.0 Prothromb Time International Ratio 1.0 0.9-1.1 Prothrombin Time 10.3 9.0-12.0 SECONDS Total Creatine Kinase 73 39-308 U/L Troponin I 0.302 *H 0.370 *H 0.336 *H 0-0.045 ng/ml Test 03/17/17 09:25 Range/Units Summary of TTecho performed 03/17/17 and reviewed independently: The study was technically adequate. There is a small sized anteroseptal wall motion abnormality with hypokinesis of the segments. Ejection Fraction = 55-60%. Grade I diastolic dysfunction, (abnormal relaxation pattern). The aortic valve is not well visualized and therefore the prescence of a bicuspid aortic valve cannot be excluded. The aortic valve is mildly calcified. Borderline to mild aortic valve stenosis is present. Impression: 57 year old male 1. NSTEMI, with acute thoracic and abdominal aorta pathology having been excluded by CT, symptoms are consistent with angina, mild troponin elevation noted, evolving EKG changes with new lateral T wave inversions this am, and small anteroseptal wall motion abnormality 2. Dyslipidemia, LDL 195 mg /dL 3. Ongoing smoking 4. DM2 5. H/o WPW, ablation, chronic RBBB 6. atherosclerotic plaque noted in abdominal aorta on CT 7. AV calcification , borderline to mild , bicuspid AV cannot be excluded. Plan: Increase metoprolol to 25 mg BID. Agree with max dose rosuvastatin 40 mg daily. Case discussed with Dr Muñiz of interventional cardiology who is going to assess patient for potential cardiac catheterization today given recurrent angina this am. NPO except medications. Salena Boudreaux DO Laboratory Results Last 24 Hours Test 03/16/17 10:35 03/16/17 10:45 03/16/17 16:00 03/16/17 16:15 White Blood Count 6.03 K/uL Red Blood Count 4.53 M/uL Hemoglobin 14.7 g/dL Hematocrit 42.3 % Mean Corpuscular Volume 93.4 fL Mean Corpuscular Hemoglobin 32.5 pg Mean Corpuscular Hemoglobin Concent 34.8 g/dl RDW Standard Deviation 43.0 fL RDW Coefficient of Variation 12.7 % Platelet Count 208 K/uL Mean Platelet Volume 10.5 fL Prothrombin Time 10.3 SECONDS Prothromb Time International Ratio 1.0 Activated Partial Thromboplast Time 31.7 SECONDS Partial Thromboplastin Ratio 1.2 Sodium Level 139 mmol/L Potassium Level 4.0 mmol/L Chloride Level 105 mmol/L Carbon Dioxide Level 25 mmol/L Anion Gap 9.0 mmol/L Blood Urea Nitrogen 14 mg/dl Creatinine 1.00 mg/dl Est Creatinine Clear Calc Drug Dose 97.4 ml/min Estimated GFR () 95.1 Estimated GFR (Non- 82.0 BUN/Creatinine Ratio 13.8 Random Glucose 216 mg/dl Estimated Average Glucose 140 mg/dl Hemoglobin A1c 6.5 % Calcium Level 8.7 mg/dl Total Bilirubin 0.7 mg/dl Aspartate Amino Transf (AST/SGOT) 16 U/L Alanine Aminotransferase (ALT/SGPT) 37 U/L Alkaline Phosphatase 92 U/L Total Creatine Kinase 73 U/L Creatine Kinase MB 2.5 ng/ml 2.5 ng/ml Creatine Kinase MB Ratio 3.4 Troponin I 0.302 ng/ml 0.370 ng/ml Total Protein 7.1 gm/dl Albumin 3.7 gm/dl Globulin 3.4 gm/dl Albumin/Globulin Ratio 1.1 Hepatitis C Antibody Screen NEG Bedside Troponin I 0.230 ng/ml Test 03/16/17 16:41 03/16/17 20:28 03/16/17 21:41 03/17/17 06:11 Bedside Glucose 118 mg/dl 140 mg/dl Activated Partial Thromboplast Time 54.4 SECONDS 56.9 SECONDS Partial Thromboplastin Ratio 2.1 2.2 Creatine Kinase MB 1.5 ng/ml Creatine Kinase MB Ratio Troponin I 0.336 ng/ml White Blood Count 5.53 K/uL Red Blood Count 4.32 M/uL Hemoglobin 14.0 g/dL Hematocrit 40.6 % Mean Corpuscular Volume 94.0 fL Mean Corpuscular Hemoglobin 32.4 pg Mean Corpuscular Hemoglobin Concent 34.5 g/dl RDW Standard Deviation 43.0 fL RDW Coefficient of Variation 12.5 % Platelet Count 187 K/uL Mean Platelet Volume 10.4 fL Sodium Level 139 mmol/L Potassium Level 3.7 mmol/L Chloride Level 106 mmol/L Carbon Dioxide Level 25 mmol/L Anion Gap 8.0 mmol/L Blood Urea Nitrogen 13 mg/dl Creatinine 0.75 mg/dl Est Creatinine Clear Calc Drug Dose 129.2 ml/min Estimated GFR () 116.4 Estimated GFR (Non- 100.4 BUN/Creatinine Ratio 17.8 Random Glucose 145 mg/dl Calcium Level 8.6 mg/dl Triglycerides Level 256 mg/dl Cholesterol Level 292 mg/dl HDL Cholesterol 46 mg/dl LDL Cholesterol, Calculated 195 mg/dl VLDL Cholesterol, Calculated 51 mg/dl Cholesterol/HDL Ratio 6.3 Test 03/17/17 06:19 03/17/17 08:44 Bedside Glucose 160 mg/dl
[2017-03-17] MEDS ORDERED: HEPARIN SOD (PORCINE) 1000 UNIT/ML 10 ML VIAL ONE ×2 (10:21→11:59)
[2017-03-17] MEDS ORDERED: NiCARDipine HCL INJ 2.5 MG/ML 10 ML AMP ONE (10:21)
[2017-03-17] MEDS ORDERED: MIDAZOLAM HCL 1 MG/ML 2ML VIAL ONE ×2 (10:21→12:03)
[2017-03-17] MEDS ORDERED: FENTANYL CITRATE INJ 50 MCG/1 ML 2 ML VIAL ONE ×2 (10:21→12:03)
[2017-03-17] MEDS ORDERED: NITROGLYCERIN/D5W 100MCG/ML 20ML SYR ONE (10:22)
--- NOTE | 2017-03-17 10:35 | Progress Note ---
Medicine Progress Note Date & Time of Visit: Mar 17, 2017 at 10:29. Subjective Patient was seen earlier this AM, had an episode of chest pain this AM as well as elevated BP, pain radiated to his mid thoracic back and down left arm to his elbow, patient reports pain was similar to the chest pain he had at home and that led him to come to the hospital. Also reports having associated diaphoresis , palpitations and slight SOB. The patient was given 3 SL NTG and pain did improve, a baseline EKG and a repeat EKG at the time of the chest pain were completed and compared. Patient at the time of my evaluation complained of feeling diaphoretic, but stated the chest pain/palpitations/SOB have resolved. No other overnight events noted. Objective Last 8 Hrs Date Time Temp Pulse Resp B/P (MAP) Pulse Ox O2 Delivery O2 Flow Rate FiO2 03/17/17 08:19 36.6 66 19 149/99 (116) 93 Room Air 03/17/17 04:01 94 Room Air 03/17/17 03:48 36.9 67 19 132/85 (101) 97 Room Air Physical Exam: GENERAL: Patient is in no acute distress. HEENT: No acute trauma, normocephalic, mucous membranes moist, no nasal congestion, no scleral icterus. NECK: No stridor, trachea is midline. LUNGS: Clear to auscultation bilaterally, no wheeze, no rhonchi, breath sounds equal. HEART: Without murmurs gallops or rubs, regular rate and rhythm. ABDOMEN: Soft, nontender, bowel sounds positive EXTREMITIES: No cyanosis or edema, distal pulses palpable and symmetric NEUROLOGIC: Oriented x 3, no acute motor or sensory deficits, no focal weakness. SKIN: No rash, no jaundice, + diaphoresis. Laboratory Results: Last 24 Hours Test 03/16/17 10:35 03/16/17 10:45 03/16/17 16:00 03/16/17 16:15 White Blood Count 6.03 K/uL Red Blood Count 4.53 M/uL Hemoglobin 14.7 g/dL Hematocrit 42.3 % Mean Corpuscular Volume 93.4 fL Mean Corpuscular Hemoglobin 32.5 pg Mean Corpuscular Hemoglobin Concent 34.8 g/dl RDW Standard Deviation 43.0 fL RDW Coefficient of Variation 12.7 % Platelet Count 208 K/uL Mean Platelet Volume 10.5 fL Prothrombin Time 10.3 SECONDS Prothromb Time International Ratio 1.0 Activated Partial Thromboplast Time 31.7 SECONDS Partial Thromboplastin Ratio 1.2 Sodium Level 139 mmol/L Potassium Level 4.0 mmol/L Chloride Level 105 mmol/L Carbon Dioxide Level 25 mmol/L Anion Gap 9.0 mmol/L Blood Urea Nitrogen 14 mg/dl Creatinine 1.00 mg/dl Est Creatinine Clear Calc Drug Dose 97.4 ml/min Estimated GFR () 95.1 Estimated GFR (Non- 82.0 BUN/Creatinine Ratio 13.8 Random Glucose 216 mg/dl Estimated Average Glucose 140 mg/dl Hemoglobin A1c 6.5 % Calcium Level 8.7 mg/dl Total Bilirubin 0.7 mg/dl Aspartate Amino Transf (AST/SGOT) 16 U/L Alanine Aminotransferase (ALT/SGPT) 37 U/L Alkaline Phosphatase 92 U/L Total Creatine Kinase 73 U/L Creatine Kinase MB 2.5 ng/ml 2.5 ng/ml Creatine Kinase MB Ratio 3.4 Troponin I 0.302 ng/ml 0.370 ng/ml Total Protein 7.1 gm/dl Albumin 3.7 gm/dl Globulin 3.4 gm/dl Albumin/Globulin Ratio 1.1 Hepatitis C Antibody Screen NEG Bedside Troponin I 0.230 ng/ml Test 03/16/17 16:41 03/16/17 20:28 03/16/17 21:41 03/17/17 06:11 Bedside Glucose 118 mg/dl 140 mg/dl Activated Partial Thromboplast Time 54.4 SECONDS 56.9 SECONDS Partial Thromboplastin Ratio 2.1 2.2 Creatine Kinase MB 1.5 ng/ml Creatine Kinase MB Ratio Troponin I 0.336 ng/ml White Blood Count 5.53 K/uL Red Blood Count 4.32 M/uL Hemoglobin 14.0 g/dL Hematocrit 40.6 % Mean Corpuscular Volume 94.0 fL Mean Corpuscular Hemoglobin 32.4 pg Mean Corpuscular Hemoglobin Concent 34.5 g/dl RDW Standard Deviation 43.0 fL RDW Coefficient of Variation 12.5 % Platelet Count 187 K/uL Mean Platelet Volume 10.4 fL Sodium Level 139 mmol/L Potassium Level 3.7 mmol/L Chloride Level 106 mmol/L Carbon Dioxide Level 25 mmol/L Anion Gap 8.0 mmol/L Blood Urea Nitrogen 13 mg/dl Creatinine 0.75 mg/dl Est Creatinine Clear Calc Drug Dose 129.2 ml/min Estimated GFR () 116.4 Estimated GFR (Non- 100.4 BUN/Creatinine Ratio 17.8 Random Glucose 145 mg/dl Calcium Level 8.6 mg/dl Triglycerides Level 256 mg/dl Cholesterol Level 292 mg/dl HDL Cholesterol 46 mg/dl LDL Cholesterol, Calculated 195 mg/dl VLDL Cholesterol, Calculated 51 mg/dl Cholesterol/HDL Ratio 6.3 Test 03/17/17 06:19 03/17/17 09:25 Bedside Glucose 160 mg/dl Troponin I 0.192 ng/ml Assessment & Plan NSTEMI: -presenting with chest and back pain, radiation to left arm, recurrence of CP this AM and relieved by NTG x3 -slightly elevated troponin, was trending up last night and this AM slightly lower -risk factors (HTN, DM, HLD, tobacco use), -CTA yesterday was negative for dissection -continued on IV Heparin -Crestor was increased to 40mg, aspirin continued -metoprolol started -echo was done this AM and per Cardiology does show some anteroseptal wall motion abnormality and hypokinesis of segments -Cardio consulted, planning for probable cath today HYPERTENSIVE URGENCY: -BP was up to 202/106 in the ED; again this AM was 213/104 -improved with SL nitro x3 -on losartan and amlodipine, metoprolol added and additional dose given this AM per Cardio DM II -HbA1c 6.5% this admission -holding metformin while hospitalized -SSI HYPERLIPIDEMIA: -continue statin HX WPW, S/P ABLATION DVT PROPHYLAXIS: - IV Heparin Current Inpatient Medications: Current Inpatient Medications Medications (Trade) Dose Ordered Sig/Henrik Route Start Time Stop Time Status Last Admin Dose Admin Ioversol (Optiray 320) 100 ml UD PRN IV 03/16/17 11:45 03/20/17 11:44 Acetaminophen (Tylenol Tab) 650 mg Q4H PRN PO 03/16/17 13:00 04/15/17 12:59 03/17/17 08:04 650 MG Ondansetron HCl (Zofran Inj) 4 mg Q6H PRN IV 03/16/17 13:00 04/15/17 12:59 Nitroglycerin (Nitrostat Tab) 0.4 mg UD PRN SL 03/16/17 13:00 04/15/17 12:59 03/17/17 08:18 0.4 MG Rosuvastatin Calcium (Crestor Tab) 40 mg DAILY PO 03/16/17 16:00 04/15/17 15:59 03/17/17 07:54 40 MG Allopurinol (Zyloprim Tab) 300 mg DAILY PO 03/17/17 09:00 04/16/17 08:59 03/17/17 07:55 300 MG Amlodipine Besylate (Norvasc Tab) 5 mg DAILY PO 03/17/17 09:00 04/16/17 08:59 03/17/17 07:55 5 MG Aspirin (Ecotrin Tab) 81 mg DAILY PO 03/17/17 09:00 04/16/17 08:59 03/17/17 07:54 81 MG Losartan Potassium (coZAAR TAB) 50 mg DAILY PO 03/17/17 09:00 04/16/17 08:59 03/17/17 07:54 50 MG Multivitamins (Multivitamin Tab) 1 tab DAILY PO 03/17/17 09:00 04/16/17 08:59 03/17/17 07:55 1 TAB Fish Oil ([place]-3 (Purified Fish Oil) Cap) 2 gm DAILY PO 03/17/17 09:00 04/16/17 08:59 03/17/17 07:55 2 GM Insulin Aspart (novoLOG ASPART) SLIDING SCALE If C... ACHS SC 03/16/17 16:00 04/15/17 15:59 03/17/17 08:03 4 UNITS Glucose (Glucose 40% Gel) 15-30 GRAMS 15 GRAMS... UD PRN PO 03/16/17 13:30 04/15/17 13:29 Glucose (Glucose Chew Tab) 4-8 Tablets 4 Tabl... UD PRN PO 03/16/17 13:30 04/15/17 13:29 Dextrose (Dextrose 50% 50ML Syringe) 25-50ML OF 50% DW IV FOR... UD PRN IV 03/16/17 13:30 04/15/17 13:29 Glucagon (Glucagon Inj) 1 mg UD PRN SQ 03/16/17 13:30 04/15/17 13:29 Heparin Sodium/ Dextrose 500 ml @ 31 mls/hr Q16H8M PRN IV 03/16/17 15:15 04/15/17 15:14 03/17/17 06:32 31 MLS/HR Metoprolol Tartrate (Lopressor Tab) 25 mg BID PO 03/17/17 21:00 04/16/17 20:59 Sodium Chloride 1,000 ml @ 100 mls/hr Q10H IV 03/17/17 09:30 04/16/17 09:29 03/17/17 09:30 100 MLS/HR
[2017-03-17] MEDS ORDERED: METHYLPREDNISOLONE 125 MG VIAL ONE (10:36)
[2017-03-17] MEDS ORDERED: RANITIDINE HCL 25 MG/ML INJ ONE (10:36)
[2017-03-17] MEDS ORDERED: DiphenhydrAMINE HCL 50 MG/ML VIAL ONE (10:36)
[2017-03-17] MEDS ORDERED: CLOPIDOGREL BISULFATE 300 MG TAB PO ONE (12:36)
--- NOTE | 2017-03-17 12:42 | Procedure Note ---
Post-Mod Sedation Assessment General Date of Moderate Sedation Mar 17, 2017. Vital Signs: Vital Signs Past 12 Hours Date Time Temp Pulse Resp B/P (MAP) Pulse Ox O2 Delivery O2 Flow Rate FiO2 03/17/17 12:28 63 18 131/85 (100) 99 Mask 4 03/17/17 08:19 36.6 66 19 149/99 (116) 93 Room Air 03/17/17 08:00 Room Air 03/17/17 04:01 94 Room Air 03/17/17 03:48 36.9 67 19 132/85 (101) 97 Room Air Review - Discharge Criteria Vital Signs Stable: Yes Alert/Oriented/Conversant: Yes Returned to Baseline Mental St: Yes Nausea Absent/Minimal: Yes Pain/Discomfort/Absent/Minimal: Yes Normal/Baseline Respirations: Yes Active Bleeding?: No Pt Received D/C Instructions: N/A Prescriptions Given: None Specific Proced. D/C Criteria Distal Pulses Present (Cardiac: Yes Groin site assessed-Card Cath: N/A Voided Prior To Discharge: N/A Discharged Patients Adult Escort/Transportation: Yes
--- NOTE | 2017-03-17 12:42 | Procedure Note ---
Pre-Mod Sedation Assessment General Date of Moderate Sedation: Mar 17, 2017. Vital Signs: Vital Signs Past 12 Hours Date Time Temp Pulse Resp B/P (MAP) Pulse Ox O2 Delivery O2 Flow Rate FiO2 03/17/17 12:28 63 18 131/85 (100) 99 Mask 4 03/17/17 08:19 36.6 66 19 149/99 (116) 93 Room Air 03/17/17 08:00 Room Air 03/17/17 04:01 94 Room Air 03/17/17 03:48 36.9 67 19 132/85 (101) 97 Room Air Review Cardiovascular: regular rate, rhythm, no edema Abdomen: normal bowel sounds, non tender Lungs: chest non-tender, lungs clear Pre-Sedation Airway Assessment Oral Cavity: Dental Abnormalities Able to Visualize Vocal Cords: No Smoking Status: Current Every Day Smoker (1/2 PPD) Mallampati Classification: Class III ASA Classification: Class III Procedure Planning Contraindications-for Mod Sed: None Yes Notes The planned sedation has been discussed with the patient and consent obtained. I have identified the patient, determined the appropriateness of sedation and have assessed the patient immediately prior to the procedure. All medicine(s) and interventions are by my order.
[2017-03-17] MEDS ORDERED: ONDANSETRON INJ 2 MG/ML 2 ML VIAL IV PRN (12:45)
--- NOTE | 2017-03-17 13:11 | Cardiac Catheterization ---
Procedure Note Procedure Date Mar 17, 2017. Pre-Procedure Diagnosis Non STEMI AUC Score 8 Post-Procedure Diagnosis Severe CAD, Successful PCI, Normal Intracardiac Pressures Procedure(s) Performed Coronary Angiography, Left Heart Cath, Drug Eluting Stent Applied [employer] Specialist Antonino Gas Welder(s) Khoa Estimated Blood Loss 20 Medication(s) Clopidogrel, Fentanyl, Heparin, Nitroglycerin, Versed, Lidocaine 1% Summary of Findings Indication: High risk NSTEMI Access: 6Fr Slender Right Radial Artery Catheters: [place], Pigtail; EBU 3.5 guide Findings: LM - Luminal irregularities LAD - 20% proximal disease, moderately calcified in the mid segment with complete occlusion after 1st diagonal. 1st diagonal moderate caliber vessel with 90% diffuse disease. Mid LAD fills slowly via right to left collaterals, apical LAD retrofills slowly via left to left collaterals. Ramus - Small vessel with 80% ostial stenosis, 50% mid segment disease Circumflex - Large caliber vessel, dominant, luminal irregularities. 60-70% ostial stenosis of moderate caliber OM2. L-PDA with luminal irregularities. RCA - Non-dominant, luminal irregularities. Right to left collaterals mid LAD LVEDP - 12 -- PCI -- Antithrombotic therapy: Heparin, Clopidogrel Procedure: LM cannulated with EBU 3.5 guide Golf Starter [employer] Ranger 50 wire passed across mid LAD occlusion into distal vessel Mid LAD lesion predilated with 2.0 and 3.0 compliant balloons [place] wire passed into distal 1st diagonal Diagonal predilated with 2.0 compliant balloon Diagonal stented with 2.25 x 26 Resolute WAYNE Diagonal stent post-dilated with 2.5 NC balloon Mid LAD lesion stented with 3.5 x 18 Resolute WAYNE overlapping take-off of 1st diagonal Diagonal re-wired with Golf Starter [employer] Ranger 50 wire Mid LAD stent post-dilated with 3.75 NC balloon to high atmospheres Ostium of diagonal/stent struts ballooned with 2.0 compliant balloon 50% residual diagonal ostium stenosis, FLORENCIO 3 flow, no evidence of dissection IC vasodilators administered for spasm Post procedure FLORENCIO 3 flow throughout, stents well expanded with minimal residual stenosis and no apparent cardiac complications. Arterial Closure: TR Band Summary: 1. Severe multivessel coronary artery disease - Occluded mid LAD. Distal partial filling via right to left and left to left collaterals - 90% diffuse disease 1st diagonal - 80% ostial small Ramus - 60-70% ostial OM2 2. Normal intracardiac filling pressure 3. Successful PCI of mid LAD with 3.5 x 18 Resolute WAYNE (post-dilated to 3.75) 4. Successful PCI of proximal 1st diagonal with 2.25 x 26 Resolute WAYNE (post- dilated to 2.5) Recommendations: To PCU for continued monitoring Loaded with Clopidogrel 600 mg in clinical laboratory assistant Continue dual-antiplatelet therapy with ASA/Clopidogrel for 1 year Continue statin, ARB/Beta-rachel, and ASCVD risk factor modification per Dr. Boudreaux Smoking cessation Consult cardiac Rehab Hemodynamics Rest Ao: 98/64/79 Final Ao: 136/70/95 LV: 103/12 Recommendations PCI without planned CABG Specimens None Radiation Exposure (mGy) 4828 Contrast (mls) 235 Fluids (cc crystalloids) 190 Drains None Anesthesia Moderate (10:45 - 12:28) Procedural Complication(s) None Disposition PCU ACC Data Cardiac Status Clinical evaluation leading to the procedure CAD Presntation: Non STEMI Anginal Classification: No symptoms Heart Failure: No, NYHA Class: CCS I Cardiogenic Shock w/in 24Hrs: No Cardiac Arrest w/in 24Hrs: No Imaging studies past 6 months: Yes Stress studies past 6 months: No Coronary Anatomy Dominant: Left Left Main (% Stenosis): Normal LAD (% Stenosis): Mid (100) D1 (% Stenosis): Proximal (90) OM2 (% Stenosis): Ostial (60-70) Ramus (% Stenosis): Ostial Diagnostic Physician's Name: Omid Muñiz MD Status: Urgent Closure Device Percutaneous Entry Location: Radial Closure Device: Radial Band Recommendations: PCI without planned CABG PCI Indication: PCI for high risk Non-STEMI Lesion Segment Name: Mid LAD Culprit Artery: Yes Stenosis Prior to Rx (%): 100 Chronic Total Occlusion: Yes IVUS: No FFR: No Pre-Procedure FLORENCIO Flow: 0 Previously Treated Lesion: No Lesion Complexity: High/C Lesion Length (mm): 15 Thrombus Present: Yes Bifurcation Lesion: Yes Guidewire Across Lesion: Yes Guidewire: Stenosis Post-Procedure (%): 0 Post-Procedure FLORENCIO Flow: 3 Device(s) Deployed: Yes Lesion #2 Segment Name: diagonal Culprit Artery: No Stenosis Prior to Rx (%): 90 Chronic Total Occlusion: No IVUS: No FFR: No Pre-Procedure FLORENCIO Flow: 3 Previously Treated Lesion: No Lesion Complexity: Non-High/Non-C Lesion Length (mm): 24 Thrombus Present: No Guidewire Across Lesion: Yes Intraprocedure Events Significant Dissection: No Perforation: No
--- NOTE | 2017-03-17 13:42 | ECHOCARDIOGRAM REPORT ---
*NOTICE TO RECEIVING DEMOCRAT AGENCY This information is strictly Confidential and protected under [place] law. [place] law prohibits you from making any further disclosure of this information unless further disclosure is expressly permitted by the written consent of the person to whom it pertains or is authorized by law. A general authorization for the release of medical or other information is not sufficient for this purpose. Hospital accepts no responsibility if the information is made available to any other person, INCLUDING THE PATIENT. Interpretation Summary * Name: DORIS ROLDAN Study Date: 03/17/2017 06:28 AM BP: 132/85 mmHg * Patient Location: C.2E\[id number]\E212\S\1 HR: 64 * : 1960 (M/d/yyyy) Gender: Male Height: 71 in * Age: 57 yrs Ethnicity: [place] Weight: 228 lb * Ordering Physician: Leslie Alfaro * Referring Physician: Self, Referred * Performed By: Adriane Puga RCS * * Reason For Study: CHEST PAIN / ELEVATED TROPONINS * BSA: 2.2 m2 * -- Conclusions -- * The study was technically adequate. * There is a small sized anteroseptal wall motion abnormality with hypokinesis of the segments. * The LV Ejection Fraction = 55-60%. * Grade I diastolic dysfunction, (abnormal relaxation pattern). * The aortic valve is not well visualized and therefore the presence of a bicuspid aortic valve cannot be excluded. * The aortic valve is mildly calcified. * Borderline to mild aortic valve stenosis is present. Procedure Details * A complete two-dimensional transthoracic echocardiogram was performed (2D, M-mode, Doppler and color flow Doppler). Left Ventricle * The left ventricle is normal in size. * There is mild concentric left ventricular hypertrophy. * Left ventricular systolic function is normal. * Ejection Fraction = 55-60%. * There is a small sized anteroseptal wall motion abnormality with hypokinesis of the segments. Right Ventricle * The right ventricle is normal size. * The right ventricular systolic function is normal as assessed by tricuspid annular plane systolic excursion (TAPSE) (normal >1.5 cm). Atria * The left atrial size is normal. * Right atrial size is normal. * There is no evidence of atrial septal defect, but resolution does not allow assessment for a patent foramen ovale. Mitral Valve * The mitral valve is normal. * There is no mitral valve stenosis. * Significant mitral regurgitation is absent. Tricuspid Valve * The tricuspid valve is normal. * There is no tricuspid stenosis. * Significant tricuspid regurgitation is absent. * Doppler findings do not suggest pulmonary hypertension. Aortic Valve * The aortic valve is mildly calcified. * The aortic valve is not well visualized. * Borderline to mild aortic valve stenosis is present. * There is no significant aortic regurgitation. Pulmonic Valve * The pulmonary valve is not well seen, but the Doppler examination is normal without significant regurgitation or stenosis. Great Vessels * The aortic root and proximal ascending aorta are normal sized. Pericardium/Pleural * There is no pericardial effusion. Great Vessels * Normal inferior vena cava diameter and respiratory variation suggests normal central venous pressure. Left Ventricular Diastolic Function * Grade I diastolic dysfunction, (abnormal relaxation pattern). MMode 2D Measurements and Calculations IVSd 1.4 cm IVSs 1.8 cm LVIDd 5.6 cm LVIDs 4.2 cm LVPWd 1.3 cm LVPWs 1.5 cm IVS/LVPW 1.1 FS 24.6 % EDV(Teich) 154.5 ml ESV(Teich) 80.0 ml EF(Teich) 48.2 % EDV(cubed) 176.8 ml ESV(cubed) 75.8 ml EF(cubed) 57.1 % % IVS thick 31.7 % % LVPW thick 18.8 % LV mass(C)d 319.1 grams LV mass(C)dI 143.1 grams/m\S\2 LV mass(C)s 292.7 grams LV mass(C)sI 131.3 grams/m\S\2 SV(Teich) 74.4 ml SI(Teich) 33.4 ml/m\S\2 SV(cubed) 101.0 ml SI(cubed) 45.3 ml/m\S\2 Ao root diam 3.5 cm Ao root area 9.7 cm\S\2 ACS 1.7 cm LA dimension 3.5 cm LA/Ao 0.98 LVOT diam 2.0 cm LVOT area 3.1 cm\S\2 Doppler Measurements and Calculations MV E max nila 106.1 cm/sec MV A max nila 113.9 cm/sec MV E/A 0.93 MV P1/2t max nila 113.0 cm/sec MV P1/2t 113.6 msec MVA(P1/2t) 1.9 cm\S\2 MV dec slope 291.4 cm/sec\S\2 MV dec time 0.31 sec LV V1 max PG 4.4 mmHg LV V1 max 104.9 cm/sec MR max nila 414.3 cm/sec MR max PG 68.7 mmHg PA V2 max 82.4 cm/sec PA max PG 2.7 mmHg
[2017-03-18] VITALS: BP 117/75; PULSE 58; TEMP 36.6; O2SAT 96
[2017-03-18 03:30] VITALS: BP 108/69; PULSE 59; TEMP 36.9; O2SAT 97
[2017-03-18 06:00] LABS: BASO % 0.2 %; BASO ABS # 0.01 K/uL (0-0.2); COMPLETE YES; EOS % 3.2 %; HEMATOCRIT 38.7 % (42-52); IG% 0.5 %; LYMPH % 25.1 %; LYMPH ABS # 1.42 K/uL (1.2-3.4); MEAN CELL VOLUME 94.4 fL (80-100); MEAN CORPUSCULAR HEMOGLOBIN 32.2 pg (25-34); MEAN CORPUSCULAR HGB CONC 34.1 g/dl (32-36); MEAN PLATELET VOLUME 10.2 fL (7.4-10.4); MONO % 7.6 %; NEUT % 63.4 %; PLATELET COUNT 173 K/uL (130-400); WHITE BLOOD COUNT 5.66 K/uL (4.8-10.8)
[2017-03-18 06:40] LABS: BUN/CREATININE RATIO 15.3 (10-20); CALCIUM 8.3 mg/dl (8.5-10.1); CREATININE 0.89 mg/dl (0.60-1.40); POTASSIUM 4.2 mmol/L (3.5-5.1)
[2017-03-18] MEDS: MULTIVITAMIN TAB PO SCH (08:06)
[2017-03-18] MEDS: LOSARTAN POTASSIUM 50 MG TAB PO SCH (08:06)
[2017-03-18] MEDS: OMEGA-3 (PURIFIED FISH OIL) 1 GM CAP PO SCH (08:07)
[2017-03-18 08:08] VITALS: BP 125/71; PULSE 66; TEMP 36.6; O2SAT 94
[2017-03-18] MEDS: ALLOPURINOL 300 MG TAB PO SCH (08:08)
[2017-03-18] MEDS: METOPROLOL TARTRATE 25 MG TAB PO SCH (08:08)
[2017-03-18] MEDS: ROSUVASTATIN CALCIUM 20 MG TAB PO SCH (08:08)
[2017-03-18] MEDS: ASPIRIN 81 MG ECTAB PO SCH (08:08)
[2017-03-18] MEDS: AMLODIPINE BESYLATE 5 MG TAB PO SCH (08:08)
[2017-03-18] MEDS: INSULIN ASPART 100 UNITS/ML 3 ML PEN SC SCH ×2 (08:15→11:00)
[2017-03-18] MEDS ORDERED: CLOPIDOGREL BISULFATE 75 MG TAB PO SCH (09:00)
--- NOTE | 2017-03-18 10:14 | Cardiology Follow-Up ---
Subjective General Date of Service: Mar 18, 2017. Chief Complaint: follow up chest pain, NSTEMI Pt evaluation today including: conversation w/ patient, physical exam, chart review, lab review, review of studies, review of inpatient medication list History of Present Illness Patient feeling well. No chest pain or SOB. Cath site well healed. No drainage. No dizziness, syncope or near syncope. Requesting discharge. Allergies Coded Allergies: Albuterol (Verified Allergy, Severe, SHORTNESS OF BREATH/THROAT CLOSING, ) Ipratropium (Verified Allergy, Severe, SHORTNESS OF BREATH/THROAT CLOSING , 03/16/17) Social History Smoking Status: Current Every Day Smoker (1/2 PPD) Hx Tobacco Use In Past Year?: Yes (3 CIGARETTE/DAY) Hx Alcohol Use - Type And Amou: Yes ([place]/BEER, 3-4 3X/WEEK) Hx Substance Use - Type And Am: No Review of Systems Respiratory: No cough, No sputum, No wheezing, No shortness of breath, No dyspnea on exertion, No dyspnea at rest, No hemoptysis Cardiac: No chest pain, No orthopnea, No PND, No edema, No palpitations Physical Exam Vital Signs Last Vital Signs Documentation Date Time Temp Pulse Resp B/P (MAP) Pulse Ox O2 Delivery O2 Flow Rate FiO2 03/18/17 08:08 36.6 66 20 125/71 (89) 94 03/18/17 04:00 Room Air 03/17/17 12:28 4 Physical Exam Constitutional: General Apperance: overweight Level of Distress: NAD Psychiatric: Mental Status: active & alert Orientation: to time, to place, to person Head: normocephalic Eyes: Pupils: PERRLA EOM: EOMI Neck: supple Lungs: Auscultation: breath sounds normal, no wheezing, no rales/crackles, no rhonchi Cardiovascular: Heart Auscultation: RRR, no murmurs, no rubs, no gallops Peripheral Pulses: Bruits: none appreciated Radial Pulse: normal on the left, normal on the right Abdomen: Inspection & Palpation: soft, non-distended Musculoskeletal: normal Extremities: no edema Neurologic: Gait & Station: pertinent finding (no focal deficits ) Assessment and Plan Assessment and Plan 57 year old male 1. NSTEMI, with acute thoracic and abdominal aorta pathology having been excluded by CT, symptoms are consistent with angina, mild troponin elevation noted, evolving EKG changes with new lateral T wave inversions this am, and small anteroseptal wall motion abnormality Echo-- Conclusions -- The study was technically adequate. There is a small sized anteroseptal wall motion abnormality with hypokinesis of the segments. The LV Ejection Fraction = 55-60%. Grade I diastolic dysfunction, (abnormal relaxation pattern). The aortic valve is not well visualized and therefore the presence of a bicuspid aortic valve cannot be excluded. The aortic valve is mildly calcified. Borderline to mild aortic valve stenosis is present. -Cardiac Catheterization - Severe multivessel coronary artery disease - Occluded mid LAD. Distal partial filling via right to left and left to left collaterals - 90% diffuse disease 1st diagonal - 80% ostial small Ramus - 60-70% ostial OM2 Successful PCI of mid LAD with 3.5 x 18 Resolute WAYNE (post-dilated to 3.75) Successful PCI of proximal 1st diagonal with 2.25 x 26 Resolute WAYNE (post- dilated to 2.5) 2. Dyslipidemia, LDL 195 mg /dL 3. Ongoing smoking 4. DM2 5. H/o WPW, ablation, chronic RBBB 6. atherosclerotic plaque noted in abdominal aorta on CT 7. AV calcification , borderline to mild , bicuspid AV cannot be excluded. Plan: Stable cardiac signs/symptoms for discharge today. Medication compliance strongly recommended, particularly Plavix 75 mg daily and ASA without interruption for minimum 1 year. Start Metoprolol to 25 mg BID. Increase crestor to 40 mg daily continue amlodipine and losartan/ Resume metformin tomorrow. Case to be discussed with Dr. Juarez CARDIOLOGY ATTENDING ADDENDUM: The patient was seen and personally examined. Agree with Manda Stone PA-C's findings and plans as documented above. Follow-up as outpatient. Pt. doing well. Laboratory Results Last 24 Hours Test 03/17/17 11:09 03/17/17 11:41 03/17/17 11:55 03/17/17 15:59 Kaolin Activated Coagulation Time 114 SECONDS 208 SECONDS 230 SECONDS Bedside Glucose 166 mg/dl Test 03/17/17 20:08 03/18/17 05:47 03/18/17 06:10 Bedside Glucose 118 mg/dl 156 mg/dl White Blood Count 5.66 K/uL Red Blood Count 4.10 M/uL Hemoglobin 13.2 g/dL Hematocrit 38.7 % Mean Corpuscular Volume 94.4 fL Mean Corpuscular Hemoglobin 32.2 pg Mean Corpuscular Hemoglobin Concent 34.1 g/dl Platelet Count 173 K/uL Mean Platelet Volume 10.2 fL Neutrophils (%) (Auto) 63.4 % Lymphocytes (%) (Auto) 25.1 % Monocytes (%) (Auto) 7.6 % Eosinophils (%) (Auto) 3.2 % Basophils (%) (Auto) 0.2 % Neutrophils # (Auto) 3.59 K/uL Lymphocytes # (Auto) 1.42 K/uL Monocytes # (Auto) 0.43 K/uL Eosinophils # (Auto) 0.18 K/uL Basophils # (Auto) 0.01 K/uL RDW Standard Deviation 43.1 fL RDW Coefficient of Variation 12.7 % Immature Granulocyte % (Auto) 0.5 % Immature Granulocyte # (Auto) 0.03 K/uL Sodium Level 141 mmol/L Potassium Level 4.2 mmol/L Chloride Level 108 mmol/L Carbon Dioxide Level 25 mmol/L Anion Gap 8.0 mmol/L Blood Urea Nitrogen 14 mg/dl Creatinine 0.89 mg/dl Est Creatinine Clear Calc Drug Dose 109.2 ml/min Estimated GFR () 108.5 Estimated GFR (Non- 93.6 BUN/Creatinine Ratio 15.3 Random Glucose 132 mg/dl Calcium Level 8.3 mg/dl Chemistry Specimen Hemolysis
[2017-03-18] MEDS ORDERED: PLV75 PO (10:32)
[2017-03-18] MEDS ORDERED: NTRSLP4 SL (10:32)
[2017-03-18] MEDS ORDERED: ROSU40TA PO (10:32)
[2017-03-18] MEDS ORDERED: LPR25 PO (10:32)
--- NOTE | 2017-03-18 10:37 | Discharge Instructions ---
Discharge Instructions Date of Service Mar 18, 2017. Admission Reason for Admission: Nstemi Discharge Discharge Diagnosis / Problem: NSTEMI, Coronary artery disease Discharge Goals Goal(s): Improve function, Increase independence, Improve disease control, Learn about illness, Therapeutic intervention, Prevent Disease Progression Activity Recommendations Activity Limitations: as noted below Lifting Limitations: no more than 10 pounds, until after follow-up appointment Exercise/Sports Limitations: until after follow-up appointment May Resume Sexual Activity: after one week Shower/Bathe: tomorrow Driving or Machine Use: resume 1 day after discharge . Instructions / Follow-Up Instructions / Follow-Up Home Care: * Take your medications exactly as directed. Don't skip doses. * Remember that recovery after a heart attack takes time. Plan to rest for at lease 4-8 weeks while you recover. Then return to normal activity when your doctor says it's okay. * Ask your doctor about joining a heart rehabilitation program. * Tell your doctor if you are feeling depressed. Feelings of sadness are common after a heart attack, but it is important that you speak to someone if you are feeling overwhelmed by these feelings. * If you are having chest pain, call 911 for an ambulance. Do NOT drive yourself to the hospital. * Ask your family members to learn CPR. * Learn to take your own blood pressure and pulse. Keep a record of your results. Ask your doctor when you should seek emergency medical attention. He or she will tell you which blood pressure reading is dangerous. Lifestyle Changes: * Maintain a healthy weight. Get help to lose any extra pounds. * Cut back on salt. * Limit canned, dried, packaged, and fast foods. * Don't add salt to your food. * Season foods with herbs instead of salt when you cook. * Break the smoking habit. Enroll in a stop-smoking program to improve your chances of success. * Limit fatty foods. * Check your lipid levels regularly. (Your doctor can show you how to do this.) * Build up your activity according to your doctor's recommendation. * Ask your doctor when it's okay to resume sexual activity. * Tell your doctor about any erectile dysfunction (ED) medication you are taking. Some ED medications are not safe if you take certain heart medications. * Try to manage stress. Follow Up: It is important for you to keep your follow up appointments with your medical provider. Current Hospital Diet Patient's current hospital diet: AHA Diet (Heart Healthy), Diabetes Type 2 Diet Discharge Diet Recommended Diet: AHA Diet (Heart Healthy), Low Sodium Diet (2gm Na), Diabetes Type 2 Diet Procedures Procedures Performed: Cardiac Catheterization Pending Studies Studies pending at discharge: no Laboratory Results Hemoglobin A1c Test 03/16/17 10:35 Range/Units Estimated Average Glucose 140 mg/dl Hemoglobin A1c 6.5 H 4.5-5.6 % Lipid Panel Test 03/17/17 06:11 Range/Units Triglycerides Level 256 H 0-150 mg/dl Cholesterol Level 292 H 0-200 mg/dl HDL Cholesterol 46 mg/dl Cholesterol/HDL Ratio 6.3 LDL Cholesterol, Calculated 195 mg/dl Work Instructions Return To Work: 5 days Lifting Limitations: no more than 10 pounds Medical Emergencies . Who to Call and When: Medical Emergencies: If at any time you feel your situation is an emergency, please call 911 immediately. Call 911 immediately or go to your nearest Emergency Room if you experience any of the following: Warning Signs and Symptoms of a Heart Attack * Chest pain that is not relieved by medication * Shortness of breath . Non-Emergent Contact Non-Emergency issues call your: Primary Care Provider, Enlisted Aircrew/Aerial Observer/Gunner Contact Number: [phone] . Past History Medical & Surgical History: (1) WPW (Usjrk-Azrnrczak-Itrbp syndrome) (2) DM (diabetes mellitus) (3) HTN (hypertension) (4) HLD (hyperlipidemia) (5) Gout . "Provider Documentation" section prepared by Manda Stone. . AMI Core Measures Reason no ASA as I/P: Treatment provided - N/A Reason no ASA at D/C: Treatment provided - N/A Reason no statin as I/P: Treatment provided - N/A Reason no statin at D/C: Treatment provided - N/A VTE Core Measure Inpt VTE Proph given/why not?: Other Anticoagulation
--- NOTE | 2017-03-18 10:55 | Discharge Summary ---
Discharge Summary Date of Service Mar 18, 2017. Discharge Summary Admission Date: Mar 16, 2017 at 12:55 Discharge Date: Mar 18, 2017 Discharge Disposition: Home Primary Diagnosis: NSTEMI Secondary Diagnoses/Problems: Coronary artery disease Procedures: cardiac catheterization Consultations: cardiology Pending Studies/Follow-Up: 2-4 week cardiology follow up Discharge Instructions Last Recorded Wt (Kilograms): 103.000 Activity Recommendations: lifting limitation (10 lbs for 1-2 weeks), exercise/ sex/sports limit (Increase activities as tolerated. ) Return to School/Work: limitations (Return to work in 5 days.) Diet At Discharge: AHA Phase I, Diabetic Allergies: Coded Allergies: Albuterol (Verified Allergy, Severe, SHORTNESS OF BREATH/THROAT CLOSING, ) Ipratropium (Verified Allergy, Severe, SHORTNESS OF BREATH/THROAT CLOSING , 03/16/17) Discharge Medications: Medications Dose Route/Sig Max Daily Dose Days Date Category Dose Instructions Crestor (Rosuvastatin Calcium) 40 Mg Tab 40 Mg PO DAILY 30 03/18/17 Rx Nitrostat (Nitroglycerin) 0.4 Mg/1 Tab Subl 0.4 Mg SL UD PRN 03/18/17 Rx Take 1 tablet under the tongue every 5 minutes, as needed for chest pain. Max dose 3 tablets in 15 minutes Lopressor (Metoprolol Tartrate) 25 Mg Tab 25 Mg PO BID 03/18/17 Rx Take 1 tablet twice daily Clopidogrel (Clopidogrel Bisulfate) 75 Mg Tab 75 Mg PO QAM 03/18/17 Rx Take 1 tablet daily Aspirin Ec (Aspirin) 81 Mg Tab 81 Mg PO DAILY 03/16/17 Reported Norvasc (Amlodipine Besylate) 5 Mg Tab 5 Mg PO DAILY 03/16/17 Reported Crestor (Rosuvastatin Calcium) 10 Mg Tab 10 Mg PO DAILY 03/16/17 Reported Cozaar (Losartan Potassium) 50 Mg Tab 50 Mg PO DAILY 03/16/17 Reported Zyloprim (Allopurinol) 300 Mg Tab 300 Mg PO DAILY 03/16/17 Reported Advil (Ibuprofen) 200 Mg Tab 200-600 Mg PO Q4H PRN 08/25/14 Reported Glucophage (Metformin Hcl) 1,000 Mg Tab 1,000 Mg PO DAILY 08/25/14 Reported Fish Oil ([place]-3 Fatty Acids) 1 Cap Cap 2 Cap PO DAILY 12/5/13 Reported Multivitamin (Multivitamins) Tab 1 Tab PO DAILY 10/02/09 Reported Home Health Services: none Special Care: Call your doctor if: * Temperature above 101 degrees * Pain not relieved by pain medicine ordered * There is increased drainage or redness from any incision * You have any unanswered questions or concerns. Avoid all tobacco products. If you need help to stop smoking, call [place]'s FREE QUITLINE at . This is a free call. Admission Information Historian: patient Onset: just prior to arrival Admission HPI: History of Present Illness 57 year old male who presents to the ER with chest and back pain, diaphoresis, and dry heaves. Patient reports his symptoms began last night while sitting on the couch. He reports they came on suddenly. He reports he felt the back pain first. He describes it as located between his shoulder blades and it was a stabbing pain. He reports that shortly after he developed left sided chest pressure that was radiating into his left arm. He felt as though his heart was beating hard. He reports associated diaphoresis and nausea with dry heaves. He denies shortness of breath, lightheadedness, dizziness, or syncope. He reports several of these episodes last night. He notes that his symptoms got better when he was walking around or if he were to lay in a certain position. He was able to fall asleep and sleep until about 0530. He reports he was initial asymptomatic however they returned around 0730 this morning. He then presented for the ER for evaluation. He was given nitroglycerin and had significant improvement in his pain. Patient reports he otherwise has been feeling well recently. He reports tolerating daily activities without any problem. He denies lower extremity edema or orthopnea. No fever or chills. He denies abdominal pain , vomiting, or diarrhea. No urinary symptoms. In the ER, patient's BP was elevated as high as 202/106. BP improved with nitro. CT was negative for dissection. POC trop 0.230, EKG shows an old RBBB. Of note, patient took a full doses aspirin at home this morning. Admission Physical Exam: General Appearance: no apparent distress Head: normocephalic Eyes: normal inspection ENT: hearing grossly normal Neck: supple, no JVD Respiratory/Chest: lungs clear, normal breath sounds, no respiratory distress Cardiovascular: regular rate, rhythm, no edema, normal peripheral pulses Abdomen/GI: normal bowel sounds, non tender, soft Extremities/Musculoskelatal: normal inspection, no calf tenderness Neurologic/Psych: no motor/sensory deficits, alert, normal mood/affect, oriented x 3 Skin: normal color, warm/dry Admission Physical Exam: Physical Exam Vital Signs Date Time Temp Pulse Resp B/P (MAP) Pulse Ox O2 Delivery O2 Flow Rate FiO2 03/16/17 13:06 67 03/16/17 12:53 71 18 118/82 98 Room Air 03/16/17 12:30 98 Room Air 03/16/17 12:26 77 16 133/76 97 Room Air 03/16/17 11:44 77 16 154/86 95 Room Air 03/16/17 11:23 70 16 184/95 97 Room Air 202/106 03/16/17 11:11 68 03/16/17 10:46 96 Room Air 03/16/17 10:20 36.9 80 18 149/80 97 Room Air General Appearance: no apparent distress Head: normocephalic Eyes: normal inspection ENT: hearing grossly normal Neck: supple, no JVD Respiratory/Chest: lungs clear, normal breath sounds, no respiratory distress Cardiovascular: regular rate, rhythm, no edema, normal peripheral pulses Abdomen/GI: normal bowel sounds, non tender, soft Extremities/Musculoskelatal: normal inspection, no calf tenderness Neurologic/Psych: no motor/sensory deficits, alert, normal mood/affect, oriented x 3 Skin: normal color, warm/dry Hospital Course 57 year old male 1. NSTEMI, with acute thoracic and abdominal aorta pathology having been excluded by CT, symptoms are consistent with angina, mild troponin elevation noted, evolving EKG changes with new lateral T wave inversions this am, and small anteroseptal wall motion abnormality Echo-- Conclusions -- The study was technically adequate. There is a small sized anteroseptal wall motion abnormality with hypokinesis of the segments. The LV Ejection Fraction = 55-60%. Grade I diastolic dysfunction, (abnormal relaxation pattern). The aortic valve is not well visualized and therefore the presence of a bicuspid aortic valve cannot be excluded. The aortic valve is mildly calcified. Borderline to mild aortic valve stenosis is present. -Cardiac Catheterization - Severe multivessel coronary artery disease - Occluded mid LAD. Distal partial filling via right to left and left to left collaterals - 90% diffuse disease 1st diagonal - 80% ostial small Ramus - 60-70% ostial OM2 Successful PCI of mid LAD with 3.5 x 18 Resolute WAYNE (post-dilated to 3.75) Successful PCI of proximal 1st diagonal with 2.25 x 26 Resolute WAYNE (post- dilated to 2.5) 2. Dyslipidemia, LDL 195 mg /dL 3. Ongoing smoking 4. DM2 5. H/o WPW, ablation, chronic RBBB 6. atherosclerotic plaque noted in abdominal aorta on CT 7. AV calcification , borderline to mild , bicuspid AV cannot be excluded. Plan: Stable cardiac signs/symptoms for discharge today. Medication compliance strongly recommended, particularly Plavix 75 mg daily and ASA without interruption for minimum 1 year. Start Metoprolol to 25 mg BID. Increase crestor to 40 mg daily continue amlodipine and losartan/ Resume metformin tomorrow. Total time spent on discharge = 60 minutes This includes examination of the patient, discharge planning, medication reconciliation, and communication with other providers.
--- NOTE | 2017-03-18 11:03 | Discharge Instructions ---
Discharge Instructions Date of Service Mar 18, 2017. Admission Reason for Admission: Nstemi Discharge Discharge Diagnosis / Problem: NSTEMI/AMI Discharge Goals Goal(s): Therapeutic intervention Activity Recommendations Activity Limitations: per Instructions/Follow-up section . Instructions / Follow-Up Instructions / Follow-Up Please see Dr. Perez on March 23 at 11:05 AM for hospital follow up Please follow up with Cardiology as scheduled Please make sure to take all medications as prescribed per Cardiology recommendations Current Hospital Diet Patient's current hospital diet: AHA Diet (Heart Healthy), Diabetes Type 2 Diet Discharge Diet Recommended Diet: AHA Diet (Heart Healthy), Diabetes Type 2 Diet Procedures Procedures Performed: Cardiac Catheterization Pending Studies Studies pending at discharge: no Laboratory Results Hemoglobin A1c Test 03/16/17 10:35 Range/Units Estimated Average Glucose 140 mg/dl Hemoglobin A1c 6.5 H 4.5-5.6 % Lipid Panel Test 03/17/17 06:11 Range/Units Triglycerides Level 256 H 0-150 mg/dl Cholesterol Level 292 H 0-200 mg/dl HDL Cholesterol 46 mg/dl Cholesterol/HDL Ratio 6.3 LDL Cholesterol, Calculated 195 mg/dl Work Instructions Return To Work: 5 days Lifting Limitations: no more than 10 pounds Medical Emergencies . Who to Call and When: Medical Emergencies: If at any time you feel your situation is an emergency, please call 911 immediately. . Non-Emergent Contact Non-Emergency issues call your: Primary Care Provider, Companion . . "Provider Documentation" section prepared by Amira Toussaint. . VTE Core Measure Inpt VTE Proph given/why not?: Other Anticoagulation
[2017-03-18 11:18] VITALS: BP 125/71; PULSE 66; TEMP 36.6; O2SAT 94
== END 2017-03-18 12:19 | disposition home or self-care (01) | DRG 247 ==
LOC: C.EDB 10:18 → C.2E 12:55 → ENRESERV 14:34
PROVIDERS: ADMIT Internal Medicine; ATTEND Internal Medicine
PROC: 0270346 Dilation of Coronary Artery, One Artery, Bifurcation, with Drug-eluting Intraluminal Device, Percutaneous Approach (ICD-10-PCS; principal; 2017-03-17 10:45)
PROC: B2151ZZ Fluoroscopy of Left Heart using Low Osmolar Contrast (ICD-10-PCS; principal; 2017-03-17 10:45)
PROC: B2111ZZ Fluoroscopy of Multiple Coronary Arteries using Low Osmolar Contrast (ICD-10-PCS; principal; 2017-03-17 10:45)
PROC: 4A023N7 Measurement of Cardiac Sampling and Pressure, Left Heart, Percutaneous Approach (ICD-10-PCS; principal; 2017-03-17 10:45)
DX: I21.4 Non-ST elevation (NSTEMI) myocardial infarction (principal); I16.0 Hypertensive urgency; I25.119 Atherosclerotic heart disease of native coronary artery with unspecified angina pectoris; I45.10 Unspecified right bundle-branch block; I35.0 Nonrheumatic aortic (valve) stenosis; I70.0 Atherosclerosis of aorta; I10 Essential (primary) hypertension; E78.5 Hyperlipidemia, unspecified; E11.9 Type 2 diabetes mellitus without complications; M10.9 Gout, unspecified; R91.1 Solitary pulmonary nodule; F17.210 Nicotine dependence, cigarettes, uncomplicated; E66.3 Overweight; Z68.31 Body mass index [BMI] 31.0-31.9, adult; Z86.79 Personal history of other diseases of the circulatory system; Z82.49 Family history of ischemic heart disease and other diseases of the circulatory system; Z79.82 Long term (current) use of aspirin; Z79.84 Long term (current) use of oral hypoglycemic drugs; Z79.899 Other long term (current) drug therapy

== ENCOUNTER 2017-10-31 12:18 | Emergency (ER) | payer OTHER ==
[~2017-10-31] VITALS: Ht 180.3 cm; Wt 107.6 kg
[~2017-10-31 12:18] MED LIST changes: +ALLO300T2 PO; +AMLO-110 PO; -ASPEC81 PO; +ASPI81TA28 PO; -CYCL10TA6 PO; -FLAX100025 PO; -GARL400T4 PO; -IBUP-103 PO; -LISI-787 PO; +LOSA50TA6 PO; +LPR25 PO; +NTRSLP4 SL; +PLV75 PO; +ROSU40TA PO
[2017-10-31 12:27] VITALS: TEMP 36.8; Ht 180.3 cm; Wt 107.6 kg
[2017-10-31 13:13] LABS: BASO % 0.5 %; BASO ABS # 0.03 K/uL (0-0.2); EOS % 4.9 %; EOS ABS # 0.28 K/uL (0-0.5); HEMATOCRIT 40.8 % (42-52); HEMOGLOBIN 14.4 g/dL (14.0-18.0); IG# 0.02 K/uL (0.00-0.02); LYMPH ABS # 1.56 K/uL (1.2-3.4); MEAN CELL VOLUME 93.4 fL (80-100); MEAN CORPUSCULAR HGB CONC 35.3 g/dl (32-36); MEAN PLATELET VOLUME 10.7 fL (7.4-10.4); MONO % 6.8 %; MONO ABS # 0.39 K/uL (0.11-0.59); NEUT % 60.5 %; NEUT ABS # 3.49 K/uL (1.4-6.5); PLATELET COUNT 209 K/uL (130-400); RED CELL DISTRIBUTION WIDTH CV 12.4 % (11.5-14.5); RED CELL DISTRIBUTION WIDTH SD 41.9 fL (36.4-46.3); WHITE BLOOD COUNT 5.77 K/uL (4.8-10.8)
[2017-10-31 13:27] LABS: PTT PATIENT 29.8 SECONDS (21.0-31.0)
[2017-10-31 13:30] LABS: BLOOD UREA NITROGEN 19 mg/dl (7-18); CALCIUM 9.1 mg/dl (8.5-10.1); CARBON DIOXIDE 24 mmol/L (21-32); CREATININE 1.03 mg/dl (0.60-1.40); GLUCOSE 227 mg/dl (70-99); POTASSIUM 4.2 mmol/L (3.5-5.1); SODIUM 138 mmol/L (136-145)
--- NOTE | 2017-10-31 13:31 | DIAGNOSTIC IMAGING REPORT ---
LEFT KNEE 3 VIEWS HISTORY: Left knee pain COMPARISON: None. FINDINGS: No fracture or dislocation within the left knee. No significant knee effusion. Mild vascular calcifications. Soft tissues are unremarkable. No radiopaque foreign bodies. IMPRESSION: No fractures. Electronically signed by: Nahun Mcginnis M.D. 10/31/2017 1:30 PM Dictated Date/Time: 10/31/2017 1:28 PM
[2017-10-31 13:35] LABS: CKMB 0.6 ng/ml (0.5-3.6)
--- NOTE | 2017-10-31 13:35 | DIAGNOSTIC IMAGING REPORT ---
CHEST 2 VIEWS ROUTINE HISTORY: Atypical chest pain. COMPARISON: Chest 03/16/2017. FINDINGS: The lungs are clear. Cardiac silhouette is normal in size. No pleural effusions. No pneumothorax. IMPRESSION: No acute process. Electronically signed by: Nahun Mcginnis M.D. 10/31/2017 1:33 PM Dictated Date/Time: 10/31/2017 1:30 PM
[2017-10-31 14:19] VITALS: BP 143/73; PULSE 76; O2SAT 98
--- NOTE | 2017-11-03 10:31 | EMERGENCY ROOM VISIT NOTE ---
History First contact with patient: 12:38 Chief Complaint: KNEEPAIN Stated Complaint: BAD PAIN IN L KNEE History of Present Illness The patient is a 57 year old white male who presents to the Emergency Room with a multitude of complaints. His main complaint is his left knee. Patient states he was walking outside on in the wet grass and slipped. He fell to the ground and had immediate onset of pain in his left knee. He believes he struck his head and had a brief period of loss of consciousness. This was an unwitnessed fall. He is unsure how long he may have been out. He had some neck pain at that time. He denies any residual neck pain. No headache , nausea, vomiting, or change in hearing, speech, or vision. There is been no treatment for the knee other than use of crutches and some ice. Pain persists medially. No catching or locking. He is unsure if there was any pop at the time of the knee injury. He also notes that he had a twinge of chest pain last night. He has a history of cardiac stent placement 2. There was no diaphoresis. It was nonexertional. He was sitting at the time. He currently denies any chest pain or shortness of breath. No recurrent symptoms. A male friend accompanies him today. No other complaints. Review of Systems REVIEW OF SYSTEM: HEENT: No dizziness, visual problems, hearing loss, or tinnitus. There is no difficulty swallowing and no oral lesions are present. LYMPH: No adenopathy. PULMONARY: No cough, shortness of breath, sputum production or hemoptysis. CARDIOVASCULAR: No palpitations, shortness of breath or peripheral edema. GASTROINTESTINAL: No diarrhea, constipation, nausea, vomiting, or abdominal pain. GENITOURINARY: No dysuria, frequency, urgency or nocturia. NEUROLOGIC: No weakness, muscle tenderness, epilepsy or history of neurological problems. No history of chronic headaches. MUSCULOSKELETAL: No history of joint tenderness/swelling. No history of arthritis or arthralgias. SKIN: No rashes or lesions. PSYCHIATRIC: No history of depression or mental illness. ENDOCRINE: No history of thyroid disorders, or abnormal hair growth. Past Medical/Surgical History Medical Problems: (1) Coronary artery disease (2) DM (diabetes mellitus) (3) Gout (4) HLD (hyperlipidemia) (5) HTN (hypertension) (6) WPW (Zmqdl-Ikyqtqptd-Hmdkv syndrome) Surgical Problems: (1) History of appendectomy Family History FH: CABG (coronary artery bypass surgery) FATHER (in his late 70s) Social History Smoking Status: Current Every Day Smoker Smokeless Tobacco Use: No Alcohol Use: occasionally Drug Use: none Marital Status: single Housing Status: lives alone Occupation Status: employed Current/Historical Medications Scheduled Allopurinol (Zyloprim), 300 MG PO DAILY Amlodipine (Norvasc), 5 MG PO DAILY Aspirin (Aspirin Ec), 81 MG PO DAILY Clopidogrel Bisulfate (Clopidogrel), 75 MG PO QAM Losartan Potassium (Cozaar), 50 MG PO DAILY Metformin Hcl (Glucophage), 1,000 MG PO DAILY Metoprolol Tartrate (Lopressor), 25 MG PO BID Multivitamin (Multivitamin), 1 TAB PO DAILY [place]-3 Fatty Acids (Fish Oil), 2 CAP PO DAILY Rosuvastatin Calcium (Crestor), 40 MG PO DAILY Scheduled PRN Nitroglycerin (Nitrostat), 0.4 MG SL UD PRN for Chest Pain Physical Exam Vital Signs Date Time Temp Pulse Resp B/P (MAP) Pulse Ox O2 Delivery O2 Flow Rate FiO2 10/31/17 14:19 76 20 143/73 98 10/31/17 13:30 74 20 144/74 94 Room Air 10/31/17 12:27 36.8 82 18 142/85 96 Room Air Physical Exam Gen.: Well-developed, well-nourished, middle-aged white male, in no acute distress. Laying on a bed. Obvious discomfort. Skin:Warm and dry with good turgor. No rashes or lesions. No ecchymosis or erythema. The patient is not diaphoretic. No abrasions. HEENT: Normocephalic atraumatic. Eyes PERRLA, EOMI. No conjunctiva or scleral injection. Nares patent bilaterally without turbinate enlargement. No significant drainage. No epistaxis. Oropharynx without erythema or exudate. Uvula midline, oral mucosa moist. No lesions present. Lungs: Lungs are clear to auscultation. No crackles rhonchi or wheezing. Good air movement. The patient is able to take a deep breath. Abdomen: Abdomen was inspected, auscultated, and palpated. Obese. Bowel sounds present x 4. Soft, nontender to palpation. No hepato-splenomegaly. No masses noted. No rebound. Musculoskeletal: Cervical spine evaluation reveals no pain with palpation over the spine, disc spaces, or right trapezius muscle. He does have discomfort with palpation over the left trapezius muscle. No palpable spasm or trigger points. Full range of motion of the neck including rotation, flexion, extension , and lateral flexion. Pain is reproducible in the left trapezius only. No pain with palpation over the rest of the thoracic or lumbar spine. Good motion of the shoulders, elbows, wrists, and hips. No pain with palpation over his sternum or anterior ribs. Left knee evaluation reveals no significant intra-articular effusion. He has focal discomfort with palpation over the medial joint line and MCL. No pain with palpation over the patella or LCL. Stable cruciate and collateral ligaments. Normal Damon. He does get increased pain with stressing of the MCL. No defect in the patellar tendon or quadriceps tendon. He is able to perform a quad set and straight leg raise. Neurologic: Gross sensation is intact across the upper and lower extremities by soft touch. Medical Decision & Procedures ER Provider Diagnostic Interpretation: EKG was obtained today and reviewed with Dr. Jackson. Normal sinus rhythm with a rate of 80. Right bundle-branch block. Inverted T waves. No acute ST or T-wave abnormalities. Chest x-ray was obtained today and was reviewed by me and read by radiology. . No pleural effusions. No pneumothorax. No acute findings. Left knee x-rays were obtained today. They are unremarkable. No effusion or fracture. No spurs or significant arthritic change. Laboratory Results 10/31/17 13:00 Red Blood Count 4.37, Mean Corpuscular Volume 93.4, Mean Corpuscular Hemoglobin 33.0, Mean Corpuscular Hemoglobin Concent 35.3, Mean Platelet Volume 10.7, Neutrophils (%) (Auto) 60.5, Lymphocytes (%) (Auto) 27.0, Monocytes (%) (Auto) 6.8, Eosinophils (%) (Auto) 4.9, Basophils (%) (Auto) 0.5, Neutrophils # (Auto) 3.49, Lymphocytes # (Auto) 1.56, Monocytes # (Auto) 0.39, Eosinophils # (Auto) 0.28, Basophils # (Auto) 0.03 10/31/17 13:00 Test 10/31/17 13:00 White Blood Count 5.77 K/uL (4.8-10.8) Red Blood Count 4.37 M/uL (4.7-6.1) Hemoglobin 14.4 g/dL (14.0-18.0) Hematocrit 40.8 % (42-52) Mean Corpuscular Volume 93.4 fL (80-100) Mean Corpuscular Hemoglobin 33.0 pg (25-34) Mean Corpuscular Hemoglobin Concent 35.3 g/dl (32-36) Platelet Count 209 K/uL (130-400) Mean Platelet Volume 10.7 fL (7.4-10.4) Neutrophils (%) (Auto) 60.5 % Lymphocytes (%) (Auto) 27.0 % Monocytes (%) (Auto) 6.8 % Eosinophils (%) (Auto) 4.9 % Basophils (%) (Auto) 0.5 % Neutrophils # (Auto) 3.49 K/uL (1.4-6.5) Lymphocytes # (Auto) 1.56 K/uL (1.2-3.4) Monocytes # (Auto) 0.39 K/uL (0.11-0.59) Eosinophils # (Auto) 0.28 K/uL (0-0.5) Basophils # (Auto) 0.03 K/uL (0-0.2) RDW Standard Deviation 41.9 fL (36.4-46.3) RDW Coefficient of Variation 12.4 % (11.5-14.5) Immature Granulocyte % (Auto) 0.3 % Immature Granulocyte # (Auto) 0.02 K/uL (0.00-0.02) Prothrombin Time 10.0 SECONDS (9.0-12.0) Prothromb Time International Ratio 1.0 (0.9-1.1) Activated Partial Thromboplast Time 29.8 SECONDS (21.0-31.0) Partial Thromboplastin Ratio 1.1 Anion Gap 8.0 mmol/L (3-11) Est Creatinine Clear Calc Drug Dose 96.3 ml/min Estimated GFR () 91.7 Estimated GFR (Non- 79.1 BUN/Creatinine Ratio 18.6 (10-20) Calcium Level 9.1 mg/dl (8.5-10.1) Total Creatine Kinase 45 U/L (39-308) Creatine Kinase MB 0.6 ng/ml (0.5-3.6) Creatine Kinase MB Ratio 1.3 (0-3.0) Troponin I < 0.015 ng/ml (0-0.045) CBC, PRP, PT/INR, CK/CK-MB, and troponin were obtained. They are all unremarkable. Mild elevation in glucose at 227. ED Course Patient was educated regarding today's findings. Conservative care measures were discussed. He was evaluated in B10. IV was established. Labs were obtained. Chest x-ray, left knee x-ray, and EKG were also obtained. Patient was reassured that his cardiac enzymes are normal along with his EKG. I do not suspect cardiac event yesterday. In regard to his fall, he currently has no symptoms from striking his head. He has done well over the last 40+ hours. Return to the ED or follow-up with his PCP as needed. In regard to the knee, he should continue using crutches. He was given a knee immobilizer for protection of the MCL. This should be worn at all times when upright and weight bearing. Weight-bear as tolerated in the brace. Gentle motion daily when sitting down. Likelihood for MCL sprain was discussed. If symptoms are not improving over the next 5 days, he should follow-up with orthopedics to evaluate the ligament and meniscus. Continue with ice and elevation on the knee. Follow-up with his public health inspector for reexamination later this week. Return to the ED for any acute changes or worsening of symptoms. Tylenol every 6 hours as needed for discomfort. He cannot take traditional anti- inflammatories due to his Plavix use. Ice and elevate any sore areas intermittently 3 days, then use moist heat. Medical Decision Possibility of intracranial bleed, skull fracture, cervical spine fracture, nerve root impingement, knee ligament tear, meniscal tear, tendon rupture, and fracture were considered among others. Acute NE, ACS, muscle strain, and chest contusion were considered as differential for his chest discomfort. [place] Drug Monitoring Program Search Results: no issues identified Medication Reconcilliation Current Medication List: was personally reviewed by me Blood Pressure Screening Patient's blood pressure: Normal blood pressure Impression Primary Impression: Sprain of knee Additional Impressions: Fall at home Non-cardiac chest pain Departure Information Dispostion Home / Self-Care Condition GOOD Forms HOME CARE DOCUMENTATION FORM, TYLENOL USE, IMPORTANT VISIT INFORMATION Patient Instructions My [employer] Additional Instructions Follow-up with your orthopedist this week if symptoms are not improving by Use crutches until you can walk without a limp Ice and elevate the knee frequently to reduce pain and swelling Use the knee immobilizer for support and stability until pain resolves Tylenol every 6 hours as needed for discomfort Return to the ED for any acute changes or worsening of symptoms Follow-up with your public health inspector over the next week for reexam Problem Qualifiers Primary Impression: Sprain of knee Encounter type: initial encounter Involved ligament of knee: medial collateral ligament Laterality: left Qualified Codes: S83.412A - Sprain of medial collateral ligament of left knee, initial encounter Additional Impressions: Fall at home Encounter type: initial encounter Qualified Codes: W19.XXXA - Unspecified fall, initial encounter; Y92.009 - Unspecified place in unspecified non- institutional (private) residence as the place of occurrence of the external cause
== END 2017-10-31 14:15 | disposition home or self-care (01) ==
LOC: C.EDB 12:21
DX: S83.412A Sprain of medial collateral ligament of left knee, initial encounter (principal); W01.0XXA Fall on same level from slipping, tripping and stumbling without subsequent striking against object, initial encounter; R07.89 Other chest pain; Z95.5 Presence of coronary angioplasty implant and graft; I25.10 Atherosclerotic heart disease of native coronary artery without angina pectoris; E11.9 Type 2 diabetes mellitus without complications; M10.9 Gout, unspecified; E78.5 Hyperlipidemia, unspecified; I10 Essential (primary) hypertension; I45.6 Pre-excitation syndrome; Z82.49 Family history of ischemic heart disease and other diseases of the circulatory system; F17.210 Nicotine dependence, cigarettes, uncomplicated; Z79.82 Long term (current) use of aspirin; Z79.84 Long term (current) use of oral hypoglycemic drugs; Z79.899 Other long term (current) drug therapy

== ENCOUNTER 2019-09-15 11:38 | Inpatient (IN) ==
--- OUTSIDE RECORDS SUMMARY | 2019-09-15 11:42 | External Medical Summary | Continuity of Care Document ---
:1960 Author Name Jhony Reyes Address Unavailable Unavailable , Care Team Providers Name Role Phone Antonino Reyes Unavailable [email or web address], [email or web address] Unavailable Unavailable Problems Active medical history not documented Allergies and Adverse Reactions Allergy history not documented Medications Medications not documented Procedures Procedures not documented Immunizations Immunizations not documented Plan of Treatment Planned Observations Planned Goals not documented Results No Known Results Results not documented
[2019-09-15] MEDS ORDERED: MoRPHine SULFATE 4 MG/ML 1 ML CARP\\VIAL IV STA (12:05)
--- NOTE | 2019-09-15 12:18 | Emergency Department Note ---
ED Provider Note CHIEF COMPLAINT: Right ankle injury HISTORY OF PRESENT ILLNESS: This 59-year-old male patient with past medical history significant for hypertension, hyperlipidemia, CAD status post 2 stents and on Plavix, with Parkinson White syndrome, type 2 diabetes, who presents to the emergency department via EMS after sustaining an injury to the right lower leg and ankle last night around 11 PM. The patient states that he slipped on some ice and fell, and the leg twisted under him. He states he was able to walk initially, but about 20 minutes after the injury he had severe pain and was no longer able to walk on the leg. The patient complains of pain from the knee to the ankle. He denies pain in the foot. He denies any numbness or tingling and is able to move his toes. The patient rates the pain as throbbing and 10/10. Constant pain, worse with any movement, and the dependent position. He denies any abrasions or laceration. The patient has had a previous fracture to this ankle in high school. The patient has taken no medication for the pain. The patient denies any other injury from the fall. He denies any headaches, neck pain, chest pain, shortness of breath, nausea or vomiting, dizziness or syncope. He does take aspirin and Plavix. REVIEW OF SYSTEMS: A complete 10 point review of systems was reviewed with the patient with pertinent positives and negatives as per history of present illness. All else were negative. ALLERGIES: Reviewed in chart and with the patient MEDICATIONS: Reviewed in chart and with the patient PMH: CAD with history of coronary stent, hypertension, hyperlipidemia, Woo[place]-Cnxknrpwm-Mcxpx, type 2 diabetes SOCIAL HISTORY: Lives at home, he is a current everyday smoker and also admits t o regular alcohol use PHYSICAL EXAM: Vital Signs: Reviewed Nurse's notes, vital signs stable. CONSTITUTIONAL: Pleasant and cooperative. No acute distress, but appears uncomfortable from pain. HEENT: Normocephalic, atraumatic. PERRL, EOMI. NECK: Supple, full active range of motion without discomfort. No midline tenderness to palpation of the cervical spine. RESPIRATORY: Clear to auscultation bilaterally with no wheezing, crackles, rhonchi or stridor. Equal expansion bilaterally. CARDIOVASCULAR: Regular rate and rhythm with no murmurs, rubs or gallops. Normal peripheral perfusion, 2+ distal pulses in all 4 extremities. No peripheral edema. GASTROINTESTINAL: Soft, nontender, nondistended. Bowel sounds present in all quadrants. MUSCULOSKELETAL: There is obvious deformity of the right lower leg with moderate swelling, ecchymosis, and poor alignment of the foot and ankle with the rest of the leg. There is diffuse tenderness of the mid calf from the proximal fibula/tibia to the ankle. There is no tenderness in the foot. Skin is intact and there are no puncture anne, abrasions, or lacerations noted. The calf compartments are soft and not particularly tender. The foot and toes are pink, warm, and well-perfused. Dorsalis pedis pulse and posterior tibialis pulse are both 2+. Sensation to pain and light touch is intact. Capillary refill less than 2 seconds. INTEGUMENTARY: No rash or other significant dermatologic conditions noted. NEUROLOGIC: Alert and oriented X 4 with normal affect. Normal strength and sensation in all 4 extremities. Normal speech. ED COURSE AND MEDICAL DECISION MAKING: CC: Patient presenting with complaint of right ankle injury DIFFERENTIAL DIAGNOSIS: Includes, but not limited to contusion, sprain/strain, fracture of the tibia or fibula, dislocation, displaced fracture, tibial plateau fracture, compartment syndrome, among others. INTERPRETATION OF LABS: No leukocytosis, mild anemia, normal platelets, no significant electrolyte abnormalities, normal renal function, coagulation factors within minutes. IMAGING: XR ankle RT 2V, XR tibia fibula RT 2V CLINICAL HISTORY: trauma. Right leg and ankle pain. COMPARISON STUDY: None. FINDINGS: Displaced spiral fractures involving the proximal shaft of the right fibula and distal shaft of the right tibia. The fibular fracture demonstrates up to 1.1 cm lateral and 6 mm of anterior displacement. The distal tibial fracture demonstrates 1.8 cm of lateral displacement. The tibial fracture is slightly comminuted with a nondisplaced component extending to the articular surface. Ho wever, the ankle mortise appears maintained. There is soft tissue swelling throughout the right lower leg and ankle. Trace knee effusion. IMPRESSION: Displaced tibial and fibular fractures as described above. MEDICATION RECONCILIATION: I attest that I have personally reviewed the patient's current medication list. INITIAL VITAL SIGNS REVIEW: I reviewed the patient's initial vital signs and interpret them as follows: T: Afebrile; BP: Normotensive; HR: Within normal limits; RR: Within normal limits; Pulse Ox: Within normal limits on room air. Blood pressure screening: The patient was found to have normal blood pressure on screening and does not require follow-up for repeat blood pressure check. MDM SUMMARY: Patient was evaluated at bedside, history and physical exam performed. Patient is alert and oriented, in no acute distress, but appears uncomfortable from pain, resting calmly in stretcher. There is obvious deformity of the right lower extremity, but the skin is intact with no evidence of an open fracture and the patient is neurovascularly intact distal to the injury. Patient denies any other injuries besides the right leg. He is alert and neurologically intact. Portable x-ray was called to the bedside, x-rays were reviewed at bedside noting a significantly displaced midshaft tibia fracture and proximal fibula fracture. Patient last ate at 10:30 AM, he states he ate a small pastry. Orders were placed at bedside for labs, IV placement, IV morphine for pain, and will keep him n.p.o. Patient discussed with Dr. Troy, who agrees with my assessment, plan, and d isposition. I spoke on the phone with Dr. Alcaraz, orthopedic surgery, who came to the bedside to evaluate the patient. The displaced fracture was reduced at bedside by him, please see his note for f urther details. He plans to admit the patient and take him to the OR this afternoon. Additional orders for preop EKG and chest x-ray were placed per his request. Patient reassessed multiple times throughout ED stay, his pain has been adequately controlled with the morphine and immobilization of the leg. The patient was stable at time of admission. The chart was completed utilizing [employer] Speech voice recognition software. Grammatical errors, random word insertions, pronoun errors, and incomplete sentences are an occasional consequence of this system due to software limitations, ambient noise, and hardware issues. Any formal questions or concerns about the content, text, or information contained within the body of this dictation should be directly addressed to the nurse practitioner for clarification. Impression & Plan Tibia fracture, Right fibular fracture, Fall from slipping on ice Past Med/Surg History Medical History (Updated 09/15/19 @ 18:18 by SILVIA Anglin) Coronary artery disease (Chronic) 03/2017-NSTEMI, S/P WAYNE to LAD and diagonal DM type 2 (diabetes mellitus, type 2) (Chronic) Familial hypercholesterolemia (Chronic) Gout (Chronic) HLD (hyperlipidemia) (Chronic) HTN (hypertension) (Chronic) RORY (obstructive sleep apnea) Tobacco abuse (Chronic) WPW (Sqysa-Ujyvwbshg-Xosrp syndrome) (Chronic) "s/p ablation" Surgical History History of appendectomy (Chronic) Family History Father Hypertension Brother Hypertension Social History (Updated 08/09/18 @ 18:35 by Manda Flanagan) Preferred Language: Dutch Communication Ability: Effective Mine Deputy Required: No Beliefs That Will Affect Care: None Current Living Situation: Alone Current Living Situation Comment: apartment current occupational status: employed Feels Safe at Home: Yes Smoking Status: Current every day smoker Tobacco Type: cigarettes ; Cigarettes Per Day: 3-4 ; Second Hand Exposure: No ; Hx Alcohol Use: Yes Alcohol type: beer and hard liquor Hx Substance Use: No Results & Data Vital Signs Vital Signs - 24 hr 09/15/19 11:43 09/15/19 13:13 09/15/19 13:23 Temperature 37.0 C 36.7 C Temperature Source Oral Oral Pulse Rate 88 81 Pulse Rate [Left Finger] 76 Pulse Rhythm Regular Respiratory Rate 19 18 18 Respiratory Effort / Characteristics Non-Labored Spontaneous Non-Labored Spontaneous Respiratory Depth Normal Normal Respiratory Pattern Regular Blood Pressure 130/66 107/53 L Blood Pressure [Left Arm] 120/71 Blood Pressure Mean 87 Blood Pressure Mean [Left Arm] 87 Blood Pressure Position [Left Arm] Lying Pulse Oximetry 96 98 95 Oxygen Delivery Method Room Air Room Air Room Air Oxygen Flow Rate Sepsis Recent Fever Within 48 Hours No Sepsis New/Unexplained Change in Mental Status No Sepsis Action Taken by Nursing No Action Required 09/15/19 14:17 09/15/19 14:35 Temperature 36.7 C 36.7 C Temperature Source Oral Oral Pulse Rate Pulse Rate [Left Finger] 80 85 Pulse Rhythm Respiratory Rate 18 18 Respiratory Effort / Characteristics Non-Labored Spontaneous Non-Labored Spontaneous Respiratory Depth Normal Normal Respiratory Pattern Blood Pressure Blood Pressure [Left Arm] 131/74 128/80 Blood Pressure Mean Blood Pressure Mean [Left Arm] 93 96 Blood Pressure Position [Left Arm] Lying Lying Pulse Oximetry 99 100 Oxygen Delivery Method Nasal Cannula Nasal Cannula Oxygen Flow Rate 2 2 Sepsis Recent Fever Within 48 Hours Sepsis New/Unexplained Change in Mental Status Sepsis Action Taken by Nursing Laboratory Data Result diagrams: 09/15/19 12:27 09/15/19 12:27 Lab Results 09/15/19 09/15/19 09/15/19 Range/Units 12:27 12:27 12:27 WBC 8.23 (4.8-10.8) K/uL RBC 4.16 L (4.7-6.1) M/uL Hgb 13.8 L (14.0-18.0) g/dL Hct 40.5 L (42-52) % MCV 97.4 (80-100) fL MCH 33.2 (25-34) pg MCHC 34.1 (32-36) g/dL RDW Std Deviation 46.2 (36.4-46.3) fL RDW Coeff of Navjot 13.0 (11.5-14.5) % Plt Count 236 (130-400) K/uL MPV 10.2 (7.4-10.4) fL Immature Gran % (Auto) 0.2 % Neut % (Auto) 74.9 % Lymph % (Auto) 17.0 % [place] % (Auto) 6.2 % Eos % (Auto) 1.6 % Baso % (Auto) 0.1 % Immature Gran # (Auto) 0.02 (0.00-0.02) K/uL Neut # (Auto) 6.16 (1.4-6.5) K/uL Lymph # (Auto) 1.40 (1.2-3.4) K/uL [place] # (Auto) 0.51 (0.11-0.59) K/uL Eos # (Auto) 0.13 (0-0.5) K/uL Baso # (Auto) 0.01 (0-0.2) K/uL APTT 27.3 (21.0-31.0) Seconds PTT Ratio 1.0 Sodium 140 (136-145) mmol/L Potassium 4.7 (3.5-5.1) mmol/L Chloride 112 H (98-107) mmol/L Carbon Dioxide 23 (21-32) mmol/L Anion Gap 5.0 (3-11) BUN 25 H (7-18) mg/dl Creatinine 1.18 (0.6-1.4) mg/dl Est Cr Clr Drug Dosing 80.1 ml/min Est GFR ( Amer) 76.7 Est GFR (Non-Af Amer) 66.2 BUN/Creatinine Ratio 21.2 H (10-20) Glucose 165 H (70-99) mg/dl Calcium 9.1 (8.5-10.1) mg/dl Administered Medications Discontinued Medications Hydromorphone HCl (Dilaudid) 0.25 mg IV NOW STA Stop: 09/15/19 13:52 Last Admin: 09/15/19 14:03 Dose: Not Given Documented by: [id number] Hydromorphone HCl (Dilaudid) Confirm Administered Dose 2 mg .ROUTE .STK-MED ONE Stop: 09/15/19 13:59 Last Increment: 09/15/19 15:10 Dose: 0.25 mg Documented by: [id number] Increment: 09/15/19 14:50 Dose: 0.25 mg Documented by: [id number] Increment: 09/15/19 14:20 Dose: 0.25 mg Documented by: [id number] Increment: 09/15/19 14:02 Dose: 0.25 mg Documented by: [id number] Cefazolin Sodium (Ancef 2000mg) 2,000 mg in 15 mls @ 3.75 mls/min IV PREOP ONE Stop: 09/15/19 13:25 Last Admin: 09/15/19 16:51 Dose: 3.75 mls/min Documented by: [id number] Morphine Sulfate (Morphine Sulfate) 4 mg IV NOW STA Stop: 09/15/19 12:06 Last Admin: 09/15/19 12:34 Dose: 4 mg Documented by: [id number] Discharge Plan Visit Data *Final* Discharge Date/Time: 09/15/19 13:13 Chief Complaint: Ankle Pain ED Provider: Jovani Troy ED Midlevel Provider: Elma Villela Discharge Problem: Tibia fracture, Right fibular fracture, Fall from slipping on ice Patient Disposition: Admitted As Inpatient Condition: Good Discharge Instructions Interventions: ED Discharge Assessment Last Done: 09/15/19 13:13
--- NOTE | 2019-09-15 12:24 | XRay Report ---
XR ankle RT 2V, XR tibia fibula RT 2V CLINICAL HISTORY: trauma. Right leg and ankle pain. COMPARISON STUDY: None. FINDINGS: Displaced spiral fractures involving the proximal shaft of the right fibula and distal shaf t of the right tibia. The fibular fracture demonstrates up to 1.1 cm lateral and 6 mm of anterior dis placement. The distal tibial fracture demonstrates 1.8 cm of lateral displacement. The tibial fractur e is slightly comminuted with a nondisplaced component extending to the articular surface. However, t he ankle mortise appears maintained. There is soft tissue swelling throughout the right lower leg and ankle. Trace knee effusion. IMPRESSION: Displaced tibial and fibular fractures as described above. ACT 112: Negative or not required by law. Electronically signed by: Nahun Mcginnis M.D. 09/15/2019 12:23 PM
[2019-09-15 12:39] LABS: Basophils # (auto) 0.01 K/uL (0-0.2); Basophils % (auto) 0.1 %; Eosinophils # (auto) 0.13 K/uL (0-0.5); Eosinophils % (auto) 1.6 %; Hematocrit (blood only) 40.5 % (42-52); Hemoglobin 13.8 g/dL (14.0-18.0); Immature Granulocytes # (auto) 0.02 K/uL (0.00-0.02); Immature Granulocytes % (auto) 0.2 %; Mean Corpuscular Hemoglobin 33.2 pg (25-34); Mean Corpuscular Hgb Conc 34.1 g/dL (32-36); Mean Corpuscular Volume 97.4 fL (80-100); Mean Platelet Volume 10.2 fL (7.4-10.4); Monocytes # (auto) 0.51 K/uL (0.11-0.59); Monocytes % (auto) 6.2 %; Neutrophils # (auto) 6.16 K/uL (1.4-6.5); Neutrophils % (auto) 74.9 %; Platelet Count 236 K/uL (130-400); RDW Standard Deviation 46.2 fL (36.4-46.3); Red Blood Count 4.16 M/uL (4.7-6.1); White Blood Count 8.23 K/uL (4.8-10.8)
[2019-09-15 12:49] LABS: Partial Thromboplastin Time 27.3 Seconds (21.0-31.0)
[2019-09-15 12:55] LABS: BUN Creatinine Ratio 21.2 (10-20); Calcium 9.1 mg/dl (8.5-10.1); Creatinine Clr Calc Pharmacy 80.1 ml/min; Est GFR (African American) 76.7; Est GFR (Non-African American) 66.2; Potassium 4.7 mmol/L (3.5-5.1)
--- NOTE | 2019-09-15 13:02 | History & Physical Report ---
Date of Service September 15, 2019 History of Present Illness Primary Care Provider: Harsh Perez MD Allergies Allergy/AdvReac Type Severity Reaction Status Date / Time albuterol Allergy Severe SHORTNESS Verified 09/15/19 12:00 OF BREATH/THROAT CLOSING ipratropium Allergy Severe SHORTNESS Verified 09/15/19 12:00 OF BREATH/THROAT CLOSING lisinopril AdvReac Intermediate Cough Verified 09/15/19 12:00 Home Medications Home Medications Medication Instructions Recorded Confirmed Type aspirin 81 mg PO DAILY 09/15/19 09/15/19 History losartan 100 mg PO DAILY 09/15/19 09/15/19 History metformin 0 mg PO DAILY 09/15/19 09/15/19 History metoprolol tartrate 0 mg PO BID 09/15/19 09/15/19 History Past Med/Surg History Medical History (Updated 08/10/18 @ 14:27 by Anayeli Soto MD) Coronary artery disease (Chronic) 03/2017-NSTEMI, S/P WAYNE to LAD and diagonal DM type 2 (diabetes mellitus, type 2) (Chronic) Familial hypercholesterolemia (Chronic) Gout (Chronic) HLD (hyperlipidemia) (Chronic) HTN (hypertension) (Chronic) Tobacco abuse (Chronic) WPW (Hiknd-Usnstbdlf-Tlyzl syndrome) (Chronic) "s/p ablation" Surgical History (Updated 08/09/18 @ 18:41 by SILVIA Cool) History of appendectomy (Chronic) Social History (Updated 08/09/18 @ 18:35 by Manda Flanagan) Preferred Language: Kinyarwanda Communication Ability: Effective Medical Equipment Repairer Required: No Beliefs That Will Affect Care: None Current Living Situation: Alone Current Living Situation Comment: apartment current occupational status: employed Feels Safe at Home: Yes Smoking Status: Current every day smoker Tobacco Type: cigarettes ; Cigarettes Per Day: 3-4 ; Second Hand Exposure: No ; Hx Alcohol Use: Yes Alcohol type: beer and hard liquor Hx Substance Use: No Review of Systems Review of Systems: Chief complaint chief complaint: Right lower extremity difficulty History: Patrice is a pleasant 59-year-old gentleman he missed a step yesterday evening suffered acute injury to his light right lower extremity. He presented to the emergency room earlier today with his markedly displaced right lower extremity. He suffered a tib-fib fracture virtually no significant neurovascular compromise Results & Data Vital Signs (Past 12 Hours) Vital Signs Temp Pulse Resp BP Pulse Ox 09/15/19 11:43 37.0 C 88 19 130/66 96 PG Care Time/CCT Total # of Minutes Spent Total Time Spent with Patient: Total time spent is greater than 50% in coordination of care (as documented) at patient's floor/unit and/or counseling patient:
[2019-09-15] MEDS ORDERED: LARYING-O-JET KIT (LTA) ONE (13:07)
[2019-09-15] MEDS ORDERED: SUCCINYLCHOLINE CHLORIDE 20 MG/ML 10 ML VIAL ONE (13:07)
[2019-09-15] MEDS ORDERED: PROPOFOL IV EMULSION 10 MG/ML 20 ML VIAL IV ONE (13:07)
[2019-09-15] MEDS ORDERED: LIDOCAINE HCL 2% 2 ML VIAL/AMP(20MG/ML) INFIL ONE (13:07)
[2019-09-15] MEDS ORDERED: MIDAZOLAM HCL 1 MG/ML 2ML VIAL ONE (13:08)
[2019-09-15] MEDS ORDERED: fentaNYL citrate 100 MCG/2 ML VIAL ONE (13:08)
--- NOTE | 2019-09-15 13:12 | History & Physical Report ---
Date of Service September 15, 2019 Assessment & Plan (1) Tibia fracture: Objective: He has good sensation for the most part of his lower extremity. Skin is slightly tented tacked. Adequate pulses Assessment closed midshaft fracture of the right tibia Plan take him to surgery for IM rodding of the right tibia I think with the amount of trauma that cast treatment would be not the best choice of care for our patient. Was well informed and asked intelligent questions. History of Present Illness Chief Complaint: Chief complaint: Right lower extremity difficulty History Patrice is delightful he is 59 suffered a fall injury yesterday 14 September. He came into the hospital today 15 September for evaluation and treatment of a moderately formed lower extremity. Primary Care Provider: Harsh Perez MD Allergies Allergy/AdvReac Type Severity Reaction Status Date / Time albuterol Allergy Severe SHORTNESS Verified 09/15/19 12:00 OF BREATH/THROAT CLOSING ipratropium Allergy Severe SHORTNESS Verified 09/15/19 12:00 OF BREATH/THROAT CLOSING lisinopril AdvReac Intermediate Cough Verified 09/15/19 12:00 Home Medications Home Medications Medication Instructions Recorded Confirmed Type aspirin 81 mg PO DAILY 09/15/19 09/15/19 History losartan 100 mg PO DAILY 09/15/19 09/15/19 History metformin 0 mg PO DAILY 09/15/19 09/15/19 History metoprolol tartrate 0 mg PO BID 09/15/19 09/15/19 History Past Med/Surg History Medical History (Updated 09/15/19 @ 13:11 by Jose Manuel Alcaraz DO) Coronary artery disease (Chronic) 03/2017-NSTEMI, S/P WAYNE to LAD and diagonal DM type 2 (diabetes mellitus, type 2) (Chronic) Familial hypercholesterolemia (Chronic) Gout (Chronic) HLD (hyperlipidemia) (Chronic) HTN (hypertension) (Chronic) Tobacco abuse (Chronic) WPW (Ijbwh-Dhmnhclpc-Mozer syndrome) (Chronic) "s/p ablation" Surgical History (Updated 08/09/18 @ 18:41 by SILVIA Cool) History of appendectomy (Chronic) Social History (Updated 08/09/18 @ 18:35 by Manda Flanagan) Preferred Language: Mauritian Communication Ability: Effective Plant Senior Manager Required: No Beliefs That Will Affect Care: None Current Living Situation: Alone Current Living Situation Comment: apartment current occupational status: employed Feels Safe at Home: Yes Smoking Status: Current every day smoker Tobacco Type: cigarettes ; Cigarettes Per Day: 3-4 ; Second Hand Exposure: No ; Hx Alcohol Use: Yes Alcohol type: beer and hard liquor Hx Substance Use: No Review of Systems Review of Systems: Denies any fever sweats chills unexplained weight loss. HEENT negative No loss of consciousness Denies chest pain shortness of breath Positive for his musculoskeletal chief complaint of right leg pain Slight loss of sensation Physical Exam Physical Exam: Vital signs stable HEENT examination normal. Pupils reactive light accommodation Cardiac normal S1-S2 no S3 Abdomen soft nontender good bowel sounds Lungs clear to auscultation no rales rhonchi wheezing Extremities: Intact x4 with a markedly displaced and rotated right lower extremity. Fortunately skin was intact Slight loss of sensation Normal Results & Data Vital Signs (Past 12 Hours) Vital Signs Temp Pulse Resp BP Pulse Ox 09/15/19 11:43 37.0 C 88 19 130/66 96 PG Care Time/CCT Total # of Minutes Spent Total Time Spent with Patient: Total time spent is greater than 50% in coordination of care (as documented) at patient's floor/unit and/or counseling patient:
[2019-09-15] MEDS ORDERED: ePHEDrine sulfate 50 MG/ML SYR ONE ×2 (13:19→18:15)
[2019-09-15] MEDS ORDERED: CEFAZOLIN 2000MG 2,000 MG/15 ML SYR IV ONE ×2 (13:22→21:00)
--- NOTE | 2019-09-15 13:44 | Anesthesiology Consultation ---
Date of Service September 15, 2019 Assessment & Plan Chart Review Chart Review: Acceptable Risk for Surgery and Patient NOT seen in Pre Admission Testing Consults Requested none ASA [id number] Proposed Anesthesia Anesthesia Type: General Anesthesia Line Insertion: Arterial line Risk / Benefits Reviewed With: PT / POA / Parent / Guardian, Accepts Plan and Informed Consent Obtained History Surgery Operation Date: 09/15/19 13:40 Proposed Procedures p Right Tibia Intramedullary [place] - Jose Manuel Alcaraz, Height/Weight Height: 5 ft 11 in Weight: 102.5 kg Allergies Allergy/AdvReac Type Severity Reaction Status Date / Time albuterol Allergy Severe SHORTNESS Verified 09/15/19 13:26 OF BREATH/THROAT CLOSING ipratropium Allergy Severe SHORTNESS Verified 09/15/19 13:26 OF BREATH/THROAT CLOSING lisinopril AdvReac Intermediate Cough Verified 09/15/19 13:26 Medications Home Medications Medication Instructions Recorded Confirmed Last Taken aspirin 81 mg PO DAILY 09/15/19 09/15/19 1 Day Ago ~09/14/19 losartan 100 mg PO DAILY 09/15/19 09/15/19 1 Day Ago ~09/14/19 metformin 0 mg PO DAILY 09/15/19 09/15/19 1 Day Ago ~09/14/19 metoprolol tartrate 0 mg PO BID 09/15/19 09/15/19 1 Day Ago ~09/14/19 NPO Date Last Intake of Fluids: 09/14/19 Time Last Intake of Fluids: 23:59 Last Intake of Fluids Comment: last evening Date Last Intake of Solids: 09/15/19 Time Last Intake of Solids: 10:30 Last Intake of Solids Comment: "a couple bites of pastry." Past Medical History Medical History (Updated 09/15/19 @ 13:41 by Victoriano Martinez MD) Coronary artery disease (Chronic) 03/2017-NSTEMI, S/P WAYNE to LAD and diagonal DM type 2 (diabetes mellitus, type 2) (Chronic) Familial hypercholesterolemia (Chronic) Gout (Chronic) HLD (hyperlipidemia) (Chronic) HTN (hypertension) (Chronic) RORY (obstructive sleep apnea) Tobacco abuse (Chronic) WPW (Vcqwc-Vkjzjceme-Mzjzl syndrome) (Chronic) "s/p ablation" Exercise / Class Metabolic Activity III < 4 Walking/Shop/Light housework Past Family History Family History Father Hypertension Brother Hypertension Past Surgical History Surgical History History of appendectomy (Chronic) Past Anesthesia History No Hx of Anesthesia Complications and No Family Hx of Anesthesia Complications History of PONV No Hx of PONV and No Hx of Motion Sickness Social History Smoking Status: Current every day smoker tobacco type: cigarettes Smoking cigarettes per day: 3-4 Hx Alcohol Use: Yes Alcohol type: beer and hard liquor alcohol intake frequency: a few times a week Hx Substance Use: No Review of Systems Respiratory: + snoring and + stopping breathing during sleep (told he has RORY); no dyspnea on exertion Cardiovascular: + chest pain at rest (rarely , but does occur) and + chest pain with activity (+/-); no chest pain (none at this time and no chest pain in quite a while), no dyspnea at rest, no orthopnea, no paroxysmal nocturnal dyspnea and no syncope Neurologic: no localized weakness, no loss of sensation, no numbness, no paresthesia, no seizure-like activity, no syncope and no abnormal speech Physical Exam Vital Signs Last Vital Signs Temp 36.7 C 09/15/19 13:23 Pulse 76 09/15/19 13:23 Resp 18 09/15/19 13:23 BP 120/71 09/15/19 13:23 Pulse Ox 95 09/15/19 13:23 Constitutional + obese ENMT Mouth: + dentition abnormality and + poor dentition Thyromental Distance: > or= 3.5 Finger Breadths Mallampati Class: III Neck normal visual inspection, trachea midline, + shortened thyromental distance and + facial hair; neck extension not limited Respiratory normal respiratory effort Auscultation: lungs clear to auscultation bilaterally Cardiovascular Rate/Rhythm: regular rate and regular rhythm Heart Sounds: no murmur Vessels: no carotid bruit Musculoskeletal Spine: normal cervical ROM Neurologic moves all extremities Motor/Sensory: no sensory deficit Psychiatric Orientation: alert and oriented x 3 Testing Laboratory Results 09/15/19 12:27 09/15/19 12:27 APTT 27.3 Seconds (21.0-31.0) 09/15/19 12:27 Electrocardiogram Date: 09/15/19 Findings: + NSR @ (at 70) and + RBBB Chest X-Ray Date: 09/15/19 Findings: + NAD Echocardiogram Date: 08/10/18 EF: 60 LV Function: normal RWMA: + none Other Findings: + atrial enlargement (biatrial), + LVH (moderate) and + diastolic dysfunction (grade 1) Valvular Disease: + (mild) Cardiac Catheterization Date: 04/17/17 Findings: + RCA (LI's), + LMA (LI's of LMT; LAD-20% prox;successful PCI/WAYNE of 100% mid LAD after D1;Successful PCI/WAYNE of 90% ostial D1;), + valve disease, + LCX and + pertinent finding (RI-80% ostial;50% mid) Intervention: + PCI and + WAYNE placed (WAYNE to LAD and D1) Location: LAD(mid after D1) and D1
--- NOTE | 2019-09-15 13:47 | XRay Report ---
XR chest 1V portable HISTORY: preop COMPARISON: Chest 08/09/2018. FINDINGS: The lungs are clear. Cardiac silhouette is normal in size. No pleural effusions. No pneumot horax. IMPRESSION: No acute process. ACT 112: Negative or not required by law. Electronically signed by: Nahun Mcginnis M.D. 09/15/2019 1:45 PM
[2019-09-15] MEDS ORDERED: HYDROmorphone INJ 0.5 MG/0.5 ML SYR IV STA (13:51)
[2019-09-15] MEDS ORDERED: HYDROmorphone INJ 2 MG/ML SYR/VIAL ONE ×2 (13:58→17:46)
[2019-09-15] MEDS ORDERED: fentaNYL citrate 100 MCG/2 ML VIAL IV PRN (16:42)
[2019-09-15] MEDS ORDERED: ePHEDrine sulfate 50 MG/ML AMP IV PRN (16:42)
[2019-09-15] MEDS ORDERED: ATROPINE SULFATE 0.1 MG/ML 10ML SYR IV PRN (16:42)
[2019-09-15] MEDS ORDERED: PROMETHAZINE HCL 6.25 MG in SODIUM CHLORIDE 0.9% 50 ML IV PRN (16:42)
[2019-09-15] MEDS ORDERED: ONDANSETRON INJ 2 MG/ML 2 ML VIAL IV PRN (16:42)
[2019-09-15] MEDS ORDERED: BACITRACIN INJ 50,000 UNIT VIAL ONE (17:07)
[2019-09-15] MEDS ORDERED: ONDANSETRON INJ 2 MG/ML 2 ML VIAL ONE (18:34)
[2019-09-15] MEDS ORDERED: ROCURONIUM BROMIDE 10 MG/ML 5 ML VIAL ONE (18:34)
[2019-09-15] MEDS ORDERED: DEXAMETHASONE SOD INJ 4 MG/ML VIAL ONE (18:34)
--- NOTE | 2019-09-15 18:56 | Post Operative Brief Note ---
PG Immediate Post Op with CF Date of Surgery September 15, 2019 Pre & Post Diagnosis Operation Date: 09/15/19 13:40 Pre-Op Diagnosis: Closed midshaft fracture of the right tibia Post-Op Diagnosis: Closed midshaft fracture of the right tibia I identified the patient and participated in the time-out.: Yes Procedure Operation Date: 09/15/19 13:40 Actual Procedures p Reduction and Rodding of Right Tibia Fracture(Right) - Jose Manuel Alcaraz DO Surgeon Jose Manuel Alcaraz DO Quality Technician Donald minor Estimated Blood Loss 150 Findings Consistent with Post-Op Diagnosis Drains García Catheter Overlapping Procedure I was immediately available: during the entire case.
--- NOTE | 2019-09-15 19:00 | Operative Report ---
PG Post Operative Report Pre & Post Diagnosis Operation Date: 09/15/19 13:40 Pre-Op Diagnosis: Closed midshaft fracture of the right tibia Post-Op Diagnosis: Closed midshaft fracture of the right tibia I identified the patient and participated in the time-out.: Yes Procedure Operation Date: 09/15/19 13:40 Actual Procedures p Reduction and Rodding of Right Tibia Fracture(Right) - Jose Manuel Alcaraz DO Surgeon Jose Manuel Alcaraz DO Cellophane Worker Donald minor Estimated Blood Loss 150 Findings Consistent with Post-Op Diagnosis Specimens 0 Anesthesia Type General Description of Procedure Patient was safely brought to the operating room general intubated anesthetic provided to patient. García catheter administered. Placed on the fracture table first. I first prepped him with alcohol from the tips of his toes all the way up to his mid thigh I let this dry then did a formal prep with ChloraPrep He was draped sterile. Timeout taken Made a skin incision over the patella a sickly over the patella tendon. Retracted the patella tendon in a lateral direction and engage the anterior spine of the tibia the guidewire at the initial guidewire was placed down the shaft approximately 6 inches and reamed starting hole. Then placed a guidewire in the starting hole down through the shaft into the proximal and distal pieces. Sequentially reamed from 8.5 mm up to 11.5 mm reduction was satisfactory. Then selected the salas that was placed over the guidewire countersunk approximately 1 cm the salas was locked proximally and distally We then irrigated thoroughly closed with saline solution and closed in layers able going on the skin. All dressings applied throughout patient return turn to his own bed extubated and to recovery room satisfactory and stable Complications 0 Blood loss 150 cc Implants used by the aitainment I attest to the content of the Intraoperative Record and any orders documented therein. Any exceptions are noted below.
--- NOTE | 2019-09-15 19:13 | Fluoroscopy Report ---
FL tibia/fibula RT 2V CLINICAL HISTORY: RT TIBIA IM RODrod placement COMPARISON STUDY: None FLUOROSCOPY TIME: 1 minute 45 seconds NUMBER OF FLUOROSCOPIC IMAGES: 4 FINDINGS: Image intensifier was utilized for an intramedullary salas placement of the right tibia. IMPRESSION: Image intensifier support for an intraoperative placement of a right tibial intramedullar y salas. ACT 112: Negative or not required by law. The above report was generated using voice recognition software. It may contain grammatical, syntax or spelling errors. Electronically signed by: Ritesh Beth M.D. 09/15/2019 7:12 PM
--- NOTE | 2019-09-15 19:56 | Anesthesiology Progress Note ---
Date of Service September 15, 2019 Anesthesia Post Procedure Vital Signs Vital Signs: Temp Pulse Pulse Pulse Resp BP BP 09/15/19 19:40 84 14 145/74 H 09/15/19 19:30 37.2 C 85 16 162/75 H 09/15/19 19:20 79 12 156/86 H 09/15/19 19:10 87 11 L 174/86 H 09/15/19 19:00 83 13 170/79 H 09/15/19 18:56 36.8 C 83 17 174/85 H 09/15/19 14:35 36.7 C 85 18 128/80 09/15/19 14:17 36.7 C 80 18 131/74 09/15/19 13:23 36.7 C 76 18 120/71 09/15/19 13:13 81 18 107/53 L 09/15/19 11:43 37.0 C 88 19 130/66 Pulse Ox 09/15/19 19:40 98 09/15/19 19:30 98 09/15/19 19:20 98 09/15/19 19:10 100 09/15/19 19:00 100 09/15/19 18:56 100 09/15/19 14:35 100 09/15/19 14:17 99 09/15/19 13:23 95 09/15/19 13:13 98 09/15/19 11:43 96 Pain Intensity Right Lower Leg: Pain Intensity: 5 Transfer of Care Handoff Completed per policy Notes Mental Status: alert / awake / arousable Patient Amnestic to Procedure: Yes Nausea / Vomiting: adequately controlled Pain: adequately controlled Airway Patency, RR, SpO2: stable & adequate BP & HR: stable & adequate Hydration State: stable & adequate Anesthetic Complications: no major complications apparent
[2019-09-15] MEDS ORDERED: SODIUM CHLORIDE 0.9% 1000ML 1,000 ML IV SCH (19:58)
[2019-09-15] MEDS ORDERED: ACETAMINOPHEN 1,000 MG/100 ML VIAL IV PRN (19:58)
[2019-09-15] MEDS ORDERED: NALOXONE HCL 0.4 MG/1 ML VIAL/CARP IV PRN (19:58)
[2019-09-15] MEDS: HYDROmorphone INJ 0.5 MG/0.5 ML SYR IV PRN ×2 (20:28→21:52)
--- NOTE | 2019-09-15 22:55 | Hospitalist Consultation ---
Date of Consultation September 15, 2019 Assessment & Plan (1) Right fibular fracture: POD 0 (2) RORY (obstructive sleep apnea): (3) DVT prophylaxis: (4) DM type 2 (diabetes mellitus, type 2): (5) Familial hypercholesterolemia: (6) Tobacco abuse: (7) WPW (Hguwa-Lvtzdtzdq-Rndbc syndrome): (8) HTN (hypertension): (9) HLD (hyperlipidemia): (10) Gout: (11) Coronary artery disease: History of Present Illness Attending Physician: Jose Manuel Alcaraz DO History of Present Illness 59-year-old male patient with past medical history significant for hypertension, hyperlipidemia, CAD status post 2 stents and on Plavix, with Parkinson White syndrome, type 2 diabetes -- here for displaced midshaft tibia fracture and proximal fibula fracture s/p mechanical fall at home, s/p Reduction and Rodding of Right Tibia Fracture(Right) POD 0. Hospitalist service consulted for medication management. PMH: as above PSH: POD 0 SH: + tobaccos use. + alcohol use Allergies Allergy/AdvReac Type Severity Reaction Status Date / Time albuterol Allergy Severe SHORTNESS Verified 09/15/19 13:26 OF BREATH/THROAT CLOSING ipratropium Allergy Severe SHORTNESS Verified 09/15/19 13:26 OF BREATH/THROAT CLOSING lisinopril AdvReac Intermediate Cough Verified 09/15/19 13:26 Home Medications Home Medications Medication Instructions Recorded Confirmed Type aspirin 81 mg PO DAILY 09/15/19 09/15/19 History losartan 100 mg PO DAILY 09/15/19 09/15/19 History metformin 0 mg PO DAILY 09/15/19 09/15/19 History metoprolol tartrate 0 mg PO BID 09/15/19 09/15/19 History Patient History Medical History (Updated 09/15/19 @ 18:18 by SILVIA Anglin) Coronary artery disease (Chronic) 03/2017-NSTEMI, S/P WAYNE to LAD and diagonal DM type 2 (diabetes mellitus, type 2) (Chronic) Familial hypercholesterolemia (Chronic) Gout (Chronic) HLD (hyperlipidemia) (Chronic) HTN (hypertension) (Chronic) RORY (obstructive sleep apnea) Tobacco abuse (Chronic) WPW ([place]ud[place]-Mjeqladfy-Pmdru syndrome) (Chronic) "s/p ablation" Surgical History History of appendectomy (Chronic) Family History Father Hypertension Brother Hypertension Social History (Updated 08/09/18 @ 18:35 by Manda Flanagan) Preferred Language: Mongolian Communication Ability: Effective Maintenance Technician 2Nd Shift Required: No Beliefs That Will Affect Care: None Current Living Situation: Alone Current Living Situation Comment: apartment current occupational status: employed Other Information That Helps Us Care for You: Yes (chronic back pain, outpt [facility]) Feels Safe at Home: Yes Safety Concerns: Feels Safe At This Time Smoking Status: Current every day smoker Tobacco Type: cigarettes ; Cigarettes Per Day: 4 cigarettes per day ; Do You Dip or Chew Tobacco: No ; Second Hand Exposure: No ; Tobacco Cessation Education Requested by Patient: Yes Hx Alcohol Use: Yes Alcohol type: beer, wine and hard liquor Hx Substance Use: Yes substance use type: marijuana Last Used Substance: Unknown Last Used Substance Other:: Marijuana approx 6 months ago Results & Data Vital Signs (Past 12 Hours) Vital Signs Temp Pulse Pulse Pulse Pulse Resp BP 09/15/19 21:56 36.6 C 83 16 09/15/19 20:51 36.9 C 77 16 09/15/19 20:43 16 09/15/19 20:34 37 C 76 16 09/15/19 19:55 37 C 80 18 09/15/19 19:40 84 14 09/15/19 19:30 37.2 C 85 16 09/15/19 19:20 79 12 09/15/19 19:10 87 11 L 09/15/19 19:00 83 13 09/15/19 18:56 36.8 C 83 17 09/15/19 14:35 36.7 C 85 18 09/15/19 14:17 36.7 C 80 18 09/15/19 13:23 36.7 C 76 18 09/15/19 13:13 81 18 107/53 L 09/15/19 11:43 37.0 C 88 19 130/66 BP Pulse Ox 09/15/19 21:56 139/79 98 09/15/19 20:51 158/83 H 99 09/15/19 20:43 100 09/15/19 20:34 150/80 H 99 09/15/19 19:55 156/80 H 99 09/15/19 19:40 145/74 H 98 09/15/19 19:30 162/75 H 98 09/15/19 19:20 156/86 H 98 09/15/19 19:10 174/86 H 100 09/15/19 19:00 170/79 H 100 09/15/19 18:56 174/85 H 100 09/15/19 14:35 128/80 100 09/15/19 14:17 131/74 99 09/15/19 13:23 120/71 95 09/15/19 13:13 98 09/15/19 11:43 96 (1) Gout Chronicity: unspecified Gout etiology: unspecified cause Gout site: unspecified site Qualified Code(s): M10.9 - Gout, unspecified (2) DM type 2 (diabetes mellitus, type 2) Diabetes mellitus complication status: with other specified complication Diabetes mellitus fci insulin use: unspecified electric motor rebuilder insulin use status Qualified Code(s): E11.69 - Type 2 diabetes mellitus with other specified complication (3) Coronary artery disease Associated angina: angina presence unspecified Coronary Disease-Associated Artery/Lesion type: [place] artery [place] vs. transplanted heart: [place] heart Qualified Code(s): I25.10 - Atherosclerotic heart disease of [place] coronary artery without angina pectoris (4) Right fibular fracture Encounter type: initial encounter Fibula location: shaft Fracture alignment: displaced Fracture morphology: spiral Fracture type: closed Qualified Code(s): S82.441A - Displaced spiral fracture of shaft of right fibula, initial encounter for closed fracture
[2019-09-15] MEDS: OXYCODONE HCL IR 5 MG TAB (IMMEDIATE RELEASE) PO PRN (23:37)
[2019-09-16] MEDS: KETOROLAC TROMETHAMINE 15 MG/ML VIAL IV PRN ×3 (01:20→15:23)
--- NOTE | 2019-09-16 03:04 | Hospitalist Consultation ---
Date of Consultation September 16, 2019 Assessment & Plan (1) Right fibular fracture: 59 y/o M Hx HTN, HLD, DM II, CAD, RORY. Admitted by the orthopedic service for repair of a fractured tib/fib requiring salas placement. The pt is recovering well in the post-op period he denies CP, SOB, nausea, vomiting, fevers or excessive pain at the surgical site. 1) The pt is recovering well post-op - DC planning to discretion of the orthopedic service 2) DM II - glucose has been high and he will be placed on a sliding scale for his time in the hospital 3) HTN - cont metoprolol, losartan 4) HLD - He does take a statin although this does not appear on the current rec - this should be continued 5) CAD - no evidence of ACS - cont ASA, B rachel, statin 6) RORY - does not comply with CPAP - supplemental 02 provided HS 7) The pt has been trying to quit smoking and is down to a few cigarettes daily Total time for this consult including review of records. labs, meds, ortho notes - discussion/exam with pt - 32 min History of Present Illness Reason for Consultation: CAD, HTN, HLD, DM II Attending Physician: Jose Manuel Alcaraz, History of Present Illness 59 y/o M Hx HTN, HLD, DM II, CAD, RORY. Admitted by the orthopedic service for repair of a fractured tib/fib requiring salas placement. The pt is recovering well in the post-op period he denies CP, SOB, nausea, vomiting, fevers or excessive pain at the surgical site. PMH: 1) HTN 2) HLD 3) DM II 4) RORY - not compliant with CPAP 5) CAD - CA/LAD stent 2016 6) Smoker Surgical: 1) Appendectomy 2) Tib/fib fracture Social: Smokes 3-4 cigarettes daily - extensive PYH - moderate ETOH consumption - employed as a cook fish and chips Family: Mother age 93 "old age" Father due to CHF Allergies Allergy/AdvReac Type Severity Reaction Status Date / Time albuterol Allergy Severe SHORTNESS Verified 09/15/19 13:26 OF BREATH/THROAT CLOSING ipratropium Allergy Severe SHORTNESS Verified 09/15/19 13:26 OF BREATH/THROAT CLOSING lisinopril AdvReac Intermediate Cough Verified 09/15/19 13:26 Home Medications Home Medications Medication Instructions Recorded Confirmed Type aspirin 81 mg PO DAILY 09/15/19 09/15/19 History losartan 100 mg PO DAILY 09/15/19 09/15/19 History metformin 0 mg PO DAILY 09/15/19 09/15/19 History metoprolol tartrate 0 mg PO BID 09/15/19 09/15/19 History Patient History Medical History (Updated 09/15/19 @ 18:18 by SILVIA Anglin) Coronary artery disease (Chronic) 03/2017-NSTEMI, S/P WAYNE to LAD and diagonal DM type 2 (diabetes mellitus, type 2) (Chronic) Familial hypercholesterolemia (Chronic) Gout (Chronic) HLD (hyperlipidemia) (Chronic) HTN (hypertension) (Chronic) RORY (obstructive sleep apnea) Tobacco abuse (Chronic) 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" Surgical History History of appendectomy (Chronic) Family History Father Hypertension Brother Hypertension Social History (Updated 08/09/18 @ 18:35 by Manda Flanagan) Preferred Language: Estonian Communication Ability: Effective Hvac Engineer Required: No Beliefs That Will Affect Care: None Current Living Situation: Alone Current Living Situation Comment: apartment current occupational status: employed Other Information That Helps Us Care for You: Yes (chronic back pain, outpt [facility]) Feels Safe at Home: Yes Safety Concerns: Feels Safe At This Time Smoking Status: Current every day smoker Tobacco Type: cigarettes ; Cigarettes Per Day: 4 cigarettes per day ; Do You Dip or Chew Tobacco: No ; Second Hand Exposure: No ; Tobacco Cessation Education Requested by Patient: Yes Hx Alcohol Use: Yes Alcohol type: beer, wine and hard liquor Hx Substance Use: Yes substance use type: marijuana Last Used Substance: Unknown Last Used Substance Other:: Marijuana approx 6 months ago Review of Systems Review of Systems: Gen: Denies fevers, night sweats, rigors, fatigue, malaise, weight loss/gain ENT: Denies congestion, throat pain, hearing loss Eyes: Denies acute visual changes CV: Denies CP, palpitations Pulmonary: Denies SOB, cough, wheezing GI: Denies N/V, diarrhea, constipation Neuro: Denies acute or unilateral weakness, acute gait impairment, headache or acute visual changes Musculoskeletal: Pain at the surgical site is controlled Endocrine: Denies polydipsia, polyuria Skin: Denies acute rashesor ulcers Physical Exam Physical Exam: General: AAO x 3, no distress ENT: No erythema or exudates, no thrush Eyes: JESSE, EOMI Head and neck: Normocephalic, atraumatic, No JVD, neck is supple. Chest/heart: Nontender, S1,2, RRR, no murmurs, no gallops Lungs: CTAB, no wheezing or crackles Abdomen: Nontender, nondistended, BS+ Neuro: AAO x 3, speech is clear, no unilateral weakness or loss of sensation, coordination intact Musculoskeletal: RLE is splinted - pulses + BL Skin: No acute rashes or ulcers Extremities: No clubbing, cyanosis, edema Results & Data Vital Signs (Past 12 Hours) Vital Signs Temp Pulse Pulse Pulse Resp BP Pulse Ox 09/15/19 23:29 98.2 F 83 16 153/78 H 95 09/15/19 21:56 97.9 F 83 16 139/79 98 09/15/19 20:51 98.4 F 77 16 158/83 H 99 09/15/19 20:43 16 100 09/15/19 20:34 98.6 F 76 16 150/80 H 99 09/15/19 19:55 98.6 F 80 18 156/80 H 99 09/15/19 19:40 84 14 145/74 H 98 09/15/19 19:30 99.0 F 85 16 162/75 H 98 09/15/19 19:20 79 12 156/86 H 98 09/15/19 19:10 87 11 L 174/86 H 100 09/15/19 19:00 83 13 170/79 H 100 09/15/19 18:56 98.2 F 83 17 174/85 H 100 PG Care Time/CCT Total # of Minutes Spent Total Time Spent with Patient: Total time spent is greater than 50% in coordination of care (as documented) at patient's floor/unit and/or counseling patient: (1) Right fibular fracture Encounter type: initial encounter Fibula location: shaft Fracture alignment: displaced Fracture morphology: spiral Fracture type: closed Qualified Code(s): S82.441A - Displaced spiral fracture of shaft of right fibula, initial encounter for closed fracture
[2019-09-16] MEDS ORDERED: ZOLPIDEM TARTRATE 5 MG TAB PO ONE (03:43)
[2019-09-16] MEDS ORDERED: GLUCOSE 40% GEL 15 GM TUBE PO PRN (06:00)
[2019-09-16] MEDS ORDERED: GLUCAGON FOR INJ 1 MG VIAL IM PRN (06:00)
[2019-09-16] MEDS ORDERED: GLUCOSE 10 TABS/TUBE PO PRN (06:00)
[2019-09-16] MEDS ORDERED: DEXTROSE 50% 50 ML SYRINGE IV PRN (06:00)
[2019-09-16] MEDS ORDERED: CARBOHYDRATES FOR HYPOGLYCEMIA PO PRN (06:00)
[2019-09-16] MEDS: OXYCODONE HCL IR 5 MG TAB (IMMEDIATE RELEASE) PO PRN ×4 (06:14→20:04)
--- NOTE | 2019-09-16 07:16 | Orthopedic Progress Note ---
Date of Service September 16, 2019 Assessment & Plan (1) Tibia fracture: Assessment: 12 hours post operative. IM rodding of the right tibia Plan: Up and ambulatory today touch weightbearing on the right lower extremity all that is permitted no need to use a walker or crutches. Tentative discharge home tomorrow with home health services Subjective Pain seems controlled No chest pain shortness of breath Review of Systems Review of Systems: Denies fever sweats chills No chest pain shortness of breath Denies nausea vomiting Remedy pain controlled Results & Data Vital Signs (Past 12 Hours) Vital Signs Temp Pulse Pulse Pulse Resp BP Pulse Ox 09/16/19 03:23 36.6 C 71 16 143/79 H 96 09/15/19 23:29 36.8 C 83 16 153/78 H 95 09/15/19 21:56 36.6 C 83 16 139/79 98 09/15/19 20:51 36.9 C 77 16 158/83 H 99 09/15/19 20:43 16 100 09/15/19 20:34 37 C 76 16 150/80 H 99 09/15/19 19:55 37 C 80 18 156/80 H 99 09/15/19 19:40 84 14 145/74 H 98 09/15/19 19:30 37.2 C 85 16 162/75 H 98 09/15/19 19:20 79 12 156/86 H 98 PG Care Time/CCT Total # of Minutes Spent Total Time Spent with Patient: Total time spent is greater than 50% in coordination of care (as documented) at patient's floor/unit and/or counseling patient: (1) Tibia fracture Encounter type: initial encounter Fracture alignment: displaced Fracture morphology: spiral Fracture type: closed Laterality: right Tibia location: shaft Qualified Code(s): S82.241A - Displaced spiral fracture of shaft of right tibia, initial encounter for closed fracture
--- NOTE | 2019-09-16 07:55 | Anesthesiology Progress Note ---
Date of Service September 16, 2019 Anesthesia Post Procedure Vital Signs Vital Signs: Temp Pulse Pulse Pulse Pulse Resp BP 09/16/19 07:44 36.6 C 72 16 09/16/19 03:23 36.6 C 71 16 09/15/19 23:29 36.8 C 83 16 09/15/19 21:56 36.6 C 83 16 09/15/19 20:51 36.9 C 77 16 09/15/19 20:43 16 09/15/19 20:34 37 C 76 16 09/15/19 19:55 37 C 80 18 09/15/19 19:40 84 14 09/15/19 19:30 37.2 C 85 16 09/15/19 19:20 79 12 09/15/19 19:10 87 11 L 09/15/19 19:00 83 13 09/15/19 18:56 36.8 C 83 17 09/15/19 14:35 36.7 C 85 18 09/15/19 14:17 36.7 C 80 18 09/15/19 13:23 36.7 C 76 18 09/15/19 13:13 81 18 107/53 L 09/15/19 11:43 37.0 C 88 19 130/66 BP Pulse Ox 09/16/19 07:44 156/82 H 95 09/16/19 03:23 143/79 H 96 09/15/19 23:29 153/78 H 95 09/15/19 21:56 139/79 98 09/15/19 20:51 158/83 H 99 09/15/19 20:43 100 09/15/19 20:34 150/80 H 99 09/15/19 19:55 156/80 H 99 09/15/19 19:40 145/74 H 98 09/15/19 19:30 162/75 H 98 09/15/19 19:20 156/86 H 98 09/15/19 19:10 174/86 H 100 09/15/19 19:00 170/79 H 100 09/15/19 18:56 174/85 H 100 09/15/19 14:35 128/80 100 09/15/19 14:17 131/74 99 09/15/19 13:23 120/71 95 09/15/19 13:13 98 09/15/19 11:43 96 Pain Intensity Right Lower Leg: Pain Intensity: 4 Right Knee: Pain Intensity: 5 Notes Mental Status: alert / awake / arousable and participated in evaluation Patient Amnestic to Procedure: Yes Nausea / Vomiting: adequately controlled Pain: adequately controlled Airway Patency, RR, SpO2: stable & adequate BP & HR: stable & adequate Hydration State: stable & adequate Anesthetic Complications: no major complications apparent and Pt Satisfied with anesthetic care
[2019-09-16] MEDS: ASPIRIN 81 MG ECTAB PO SCH (07:57)
[2019-09-16] MEDS: LOSARTAN POTASSIUM 50 MG TAB PO SCH (07:57)
--- NOTE | 2019-09-16 08:16 | Electrocardiogram Report ---
Test Reason : Blood Pressure : / mmHG Vent. Rate : 070 BPM Atrial Rate : 070 BPM P-R Int : 128 ms QRS Dur : 120 ms QT Int : 404 ms P-R-T Axes : 043 058 076 degrees QTc Int : 436 ms Normal sinus rhythm Right bundle branch block Abnormal ECG When compared with ECG of 11-AUG-2018 06:58, ST elevation now present in Anterior leads Nonspecific T wave abnormality has replaced inverted T waves in Anterior leads T wave inversion more evident in Lateral leads Confirmed by Omid Shankar ([id number]) on 09/15/2019 5:51:50 PM Referred By: REFERRED SELF Confirmed By:Nils Shankar
[2019-09-16] MEDS: INSULIN ASPART 100 UNITS/ML 3 ML PEN SC SCH ×4 (08:25→22:15)
[2019-09-16] MEDS: HYDROmorphone INJ 0.5 MG/0.5 ML SYR IV PRN (12:29)
--- NOTE | 2019-09-16 15:23 | Hospitalist Progress Note ---
Date of Service September 16, 2019 Assessment & Plan (1) Post-operative state: Fall with subsequent fracture. Underwent reduction with rodding of the R tibia fracture, POD#1. Cont pain control efforts with addition of scheduled Tylenol. Opiates PRN. Activity per Ortho. (2) Right fibular fracture: (3) Tibia fracture: (4) Familial hypercholesterolemia: Cont Tricor, Fish Oil, Crestor per home regimen. (5) DM type 2 (diabetes mellitus, type 2): Metformin on hold. Insulin correction factor ordered, currently at goal. (6) Tobacco abuse: (7) Gout: allopurinol per home regimen. (8) Coronary artery disease: h/o WAYNE to LAD in 2017. Cont medical management wtih ASA 81, Cozaar 100mg PO BID, Metoprolol 25mg PO BID, Crestor. Plavix on hold post-operatively until OK with Ortho to restart. (9) DVT prophylaxis: SCD to left leg, ambulate as tolerated per Ortho Full Code Dispo-per Ortho DO Kathleen Gonzalez Hospitalist Subjective reporting uncontrolled pain recently took a pain pill tolerating PO afebrile medications reconciled and home med list updated. Review of Systems Review of Systems: All systems reviewed & are unremarkable except as noted in HPI & below Physical Exam Physical Exam: CONSTITUTIONAL: WNWD, vitals as above, generally well- appearing, in moderate distress 2/2 pain EYES: normal conjunctivae, no scleral icterus ENT: MMM RESPIRATORY: clear to auscultation bilaterally, no crackles, rales or wheezes, normal respiratory effort CARDIOVASCULAR: regular rate and rhythm, S1 and 2 heard without murmurs, gallops or rubs, no JVD, no peripheral edema GASTROINTESTINAL: normal bowel sounds, soft, nontender, nondistended MUSCULOSKELETAL: limited exam 2/2 pain and recent surgery, head is normocephalic and atraumatic SKIN: warm and dry NEUROLOGIC: CN 2-12 grossly intact, normal cognition, no gross focal deficits, LE NVI bilat PSYCHIATRIC: alert cooperative and oriented to person, place and time. Results & Data Vital Signs (Past 12 Hours) Vital Signs Temp Pulse Pulse Resp BP Pulse Ox 09/16/19 14:56 36.8 C 67 16 124/77 98 09/16/19 11:31 36.6 C 76 18 130/58 L 97 09/16/19 07:44 36.6 C 72 16 156/82 H 95 Medications Administered Current Inpatient Medications Acetaminophen (Tylenol) 1,000 mg PO Q8H [facility] Stop: 10/16/19 15:29 Allopurinol (Zyloprim) 300 mg PO DAILY [facility] Stop: 10/17/19 08:59 Amlodipine Besylate (Norvasc) 10 mg PO DAILY JENN[facility]ER Stop: 10/17/19 08:59 Aspirin (Ecotrin Ectab) 81 mg PO DAILY [facility] Stop: 10/16/19 08:59 Last Admin: 09/16/19 07:57 Dose: 81 mg Documented by: Dextrose (Dextrose 50%) 25 - 50 ml IV UD PRN; Protocol PRN Reason: Hypoglycemia Protocol Stop: 10/16/19 05:59 Fenofibrate (Tricor) 145 mg PO DAILY JENNIFER Stop: 10/17/19 08:59 Glucagon (Glucagen) 1 mg IM UD PRN; Protocol PRN Reason: Hypoglycemia Protocol Stop: 10/16/19 05:59 Glucose (Glucose 40%) 15 - 30 gm PO UD PRN; Protocol PRN Reason: Hypoglycemia Protocol Stop: 10/16/19 05:59 Glucose (Dex4 Glucose) 4 - 8 tabs PO UD PRN; Protocol PRN Reason: Hypoglycemia Protocol Stop: 10/16/19 05:59 Hydromorphone HCl (Dilaudid) 0.5 mg IV Q15M PRN PRN Reason: Severe Pain Stop: 09/29/19 19:57 Last Admin: 09/16/19 12:29 Dose: 0.5 mg Documented by: Insulin Aspart (Novolog Flexpen) 0 units SC ACHS [facility] Stop: 10/16/19 07:29 Last Admin: 09/16/19 12:27 Dose: 1 units Documented by: Ketorolac Tromethamine (Toradol) 15 mg IV Q6H PRN PRN Reason: Pain Stop: 09/20/19 19:57 Last Admin: 09/16/19 15:23 Dose: 15 mg Documented by: Losartan Potassium (Cozaar) 100 mg PO DAILY [facility] Stop: 10/16/19 08:59 Last Admin: 09/16/19 07:57 Dose: 100 mg Documented by: Metoprolol Tartrate (Lopressor) 25 mg PO BID [facility] Stop: 10/16/19 20:59 Miscellaneous (Carbohydrates For Hypoglycemia) 15 - 30 gm PO UD PRN PRN Reason: Hypoglycemia Treatment Stop: 10/16/19 05:59 Naloxone HCl (Narcan) 0.1 mg IV UD PRN PRN Reason: Opioid Overdose Stop: 10/15/19 19:57 Oxycodone HCl (Roxicodone Immediate Rel) 5 mg PO Q4H PRN PRN Reason: Pain Stop: 09/29/19 19:57 Last Admin: 09/16/19 14:59 Dose: 5 mg Documented by: Rosuvastatin Calcium (Crestor) 40 mg PO DAILY JENNIFER Stop: 10/17/19 08:59 (1) Gout Chronicity: unspecified Gout etiology: unspecified cause Gout site: unspecified site Qualified Code(s): M10.9 - Gout, unspecified (2) DM type 2 (diabetes mellitus, type 2) Diabetes mellitus complication status: with other specified complication Diabetes mellitus intermediate accountant insulin use: unspecified correction insulin use status Qualified Code(s): E11.69 - Type 2 diabetes mellitus with other specified complication (3) Coronary artery disease Associated angina: angina presence unspecified Coronary Disease-Associated Artery/Lesion type: [place] artery [place] vs. transplanted heart: [place] heart Qualified Code(s): I25.10 - Atherosclerotic heart disease of [place] coronary artery without angina pectoris (4) Tibia fracture Encounter type: initial encounter Fracture alignment: displaced Fracture morphology: spiral Fracture type: closed Laterality: right Tibia location: shaft Qualified Code(s): S82.241A - Displaced spiral fracture of shaft of right tibia, initial encounter for closed fracture (5) Right fibular fracture Encounter type: initial encounter Fibula location: shaft Fracture alignment: displaced Fracture morphology: spiral Fracture type: closed Qualified Code(s): S82.441A - Displaced spiral fracture of shaft of right fibula, initial encounter for closed fracture
[2019-09-16] MEDS: ACETAMINOPHEN 500 MG TAB PO SCH (16:37)
[2019-09-16] MEDS: METOPROLOL TARTRATE 25 MG TAB PO SCH (20:52)
[2019-09-16] MEDS ORDERED: COUGH DROP (SUGAR FREE) LOZ 24 LOZ/1 BOX BUCCAL ONE (22:51)
[2019-09-17] MEDS: ACETAMINOPHEN 500 MG TAB PO SCH ×2 (00:46→07:28)
[2019-09-17] MEDS: OXYCODONE HCL IR 5 MG TAB (IMMEDIATE RELEASE) PO PRN ×3 (00:48→14:06)
[2019-09-17 07:15] LABS: Hematocrit (blood only) 30.2 % (42-52); Hemoglobin 9.9 g/dL (14.0-18.0); Mean Corpuscular Hemoglobin 32.5 pg (25-34); Mean Corpuscular Hgb Conc 32.8 g/dL (32-36); Mean Platelet Volume 10.2 fL (7.4-10.4); Platelet Count 176 K/uL (130-400); RDW Coefficient of Variation 12.9 % (11.5-14.5); RDW Standard Deviation 46.6 fL (36.4-46.3); Red Blood Count 3.05 M/uL (4.7-6.1); White Blood Count 4.85 K/uL (4.8-10.8)
[2019-09-17 07:23] LABS: BUN Creatinine Ratio 26.7 (10-20); Calcium 8.4 mg/dl (8.5-10.1); Creatinine Clr Calc Pharmacy 111.2 ml/min; Potassium 4.1 mmol/L (3.5-5.1)
[2019-09-17] MEDS: INSULIN ASPART 100 UNITS/ML 3 ML PEN SC SCH ×2 (08:10→12:18)
[2019-09-17] MEDS: LOSARTAN POTASSIUM 50 MG TAB PO SCH (08:55)
[2019-09-17] MEDS: ASPIRIN 81 MG ECTAB PO SCH (08:56)
[2019-09-17] MEDS: METOPROLOL TARTRATE 25 MG TAB PO SCH (08:56)
[2019-09-17] MEDS ORDERED: FENOFIBRATE NANOCRYSTALLIZED 145 MG TABLET PO SCH (09:00)
[2019-09-17] MEDS ORDERED: allopurinoL 300 MG TAB PO SCH (09:00)
[2019-09-17] MEDS ORDERED: AMLODIPINE BESYLATE 5 MG TAB PO SCH (09:00)
[2019-09-17] MEDS ORDERED: ROSUVASTATIN CALCIUM 20 MG TAB PO SCH (09:00)
[2019-09-17] MEDS: KETOROLAC TROMETHAMINE 15 MG/ML VIAL IV PRN (11:24)
--- NOTE | 2019-09-19 08:09 | Discharge Summary ---
ADMITTING DIAGNOSIS: Tibia fracture, comminuted midshaft. DISCHARGE DIAGNOSIS: Tibia fracture, comminuted midshaft. PROCEDURE: IM rodding of his right tibia on 09/15/2019. HOSPITAL COURSE: He did well postoperatively for a rigorous surgery. He was out of bed to chair and ambulating on day 1 and 2, discharged home in improved stable condition. He had no complaints of chest pain, confusion, shortness of breath. He was uneventful. He is discharged home improved, stable. He has medications called into his pharmacy for pain. He has a prescription for a walker on his chart and he is on aspirin for DVT prophylaxis. He may resume all his medications.
== END 2019-09-17 14:26 | disposition home health service (06) | DRG 494 ==
LOC: ED 11:38 → ASU 13:13 → 3E 13:14

== ENCOUNTER 2019-09-19 14:55 | Inpatient (IN) ==
[2019-09-19] MEDS ORDERED: ONDANSETRON 4 MG OD TAB PO STA (15:06)
[2019-09-19] MEDS ORDERED: MoRPHine SULFATE 10 MG/ML CARP/VIAL IM STA (15:06)
[2019-09-19] MEDS ORDERED: MoRPHine SULFATE 10 MG/ML CARP/VIAL IV STA (15:14)
--- NOTE | 2019-09-19 15:32 | Emergency Department Note ---
History of Present Illness General Chief complaint: Leg Injury/Pain Time Seen by Provider: 09/19/19 14:57 History of Present Illness Maximum Pain Intensity: 7 This 59-year-old male presents the ER presents the ER via EMS with chief complaint of inability to ambulate and right leg pain. The patient was recently discharged from having IM rodding to his right tibia on September 15. The patient lives alone and has steps going into his house. When he was discharged he was told by Dr. Alcaraz that he did not need crutches or a walker. They told him that he could toe-touch walk. The patient states that it is very painful and therefore he called the doctor and he was given a prescription for a walker. He states the medical supply companies were not open this weekend and therefore he cannot get a walker. His friend had a walker with wheels and he tried to use it and ended up falling backwards and therefore he is afraid to continue to use the walker. The patient states that he was under the impression that he was going to rehab when he was discharged from the hospital but at the last minute was told that he was going home. The patient states that he had a PT evaluation while in the hospital but never had the OT evaluation. Patient also states that his pain is not controlled with taking 1 [place] every 6 hours. The patient denies any chest pain or shortness of breath. Home Medications Home Medications Medication Instructions Recorded Confirmed Type aspirin 81 mg PO DAILY 09/15/19 09/16/19 History losartan 100 mg PO DAILY 09/15/19 09/16/19 History metformin 1,000 mg PO DAILY 09/15/19 09/16/19 History metoprolol tartrate 25 mg PO BID 09/15/19 09/16/19 History allopurinol 300 mg PO DAILY 09/16/19 09/16/19 History amlodipine 10 mg PO DAILY 09/16/19 09/16/19 History clopidogrel 75 mg PO DAILY 09/16/19 09/16/19 History fenofibrate nanocrystallized 145 mg PO DAILY 09/16/19 09/16/19 History omega-3 fatty acids [Fish Oil 1,000 mg PO DAILY 09/16/19 09/16/19 History Concentrate] rosuvastatin 40 mg PO DAILY 09/16/19 09/16/19 History hydrocodone-acetaminophen [[place]] 1 tab PO Q6H PRN #40 tab 09/17/19 Rx Allergies Allergy/AdvReac Type Severity Reaction Status Date / Time albuterol Allergy Severe SHORTNESS Verified 09/15/19 13:26 OF BREATH/THROAT CLOSING ipratropium Allergy Severe SHORTNESS Verified 09/15/19 13:26 OF BREATH/THROAT CLOSING lisinopril AdvReac Intermediate Cough Verified 09/15/19 13:26 Past Med/Surg History Medical History Coronary artery disease (Chronic) 03/2017-NSTEMI, S/P WAYNE to LAD and diagonal DM type 2 (diabetes mellitus, type 2) (Chronic) Familial hypercholesterolemia (Chronic) Gout (Chronic) HLD (hyperlipidemia) (Chronic) HTN (hypertension) (Chronic) Internal fixation device (pin, salas, or screw) infection-inflammation RORY (obstructive sleep apnea) Tobacco abuse (Chronic) WPW (Iwmzv-Eqstmppjv-Gtpmi syndrome) (Chronic) "s/p ablation" Surgical History History of appendectomy (Chronic) Family History Father Hypertension Brother Hypertension Social History Preferred Language: Greenlandic Communication Ability: Effective Laundry Agent Required: No Beliefs That Will Affect Care: None Current Living Situation: Alone Current Living Situation Comment: apartment current occupational status: employed Feels Safe at Home: Yes Smoking Status: Current every day smoker Tobacco Type: cigarettes ; Cigarettes Per Day: 4 cigarettes per day ; Second Hand Exposure: No ; Hx Alcohol Use: Yes Alcohol type: beer, wine and hard liquor Hx Substance Use: Yes substance use type: marijuana Last Used Substance: Unknown Review of Systems A total of 10 systems reviewed and were otherwise negative Physical Exam Vital Signs Vital Signs - 24 hr 09/19/19 15:03 Temperature 36.9 C Temperature Source Oral Pulse Rate 87 Pulse Rhythm Regular Pulse Strength Normal Respiratory Rate 24 Respiratory Effort / Characteristics Non-Labored Spontaneous Respiratory Depth Normal Respiratory Pattern Regular Blood Pressure 133/83 Blood Pressure Mean 99 Pulse Oximetry 99 Oxygen Delivery Method Room Air Sepsis Recent Fever Within 48 Hours No Sepsis Action Taken by Nursing No Action Required GENERAL: 59-year-old male appears very pale. He is in no acute distress. MENTAL Status: Alert and oriented x3 NECK: Supple, no lymphadenopathy noted. No carotid bruits noted. LUNGS: Clear auscultation without wheezes rales or rhonchi. CARDIAC: Regular rate and rhythm without murmur. Pulses is full and equal throughout. RIGHT LOWER EXTREMITY: Edema noted to the area that is visible through the bandaging. The patient is able to move his toes without difficulty. Medical Decision Making Differential Diagnosis Inability to ambulate, intractable pain Medical Records Attestation: I reviewed the patient's medical records. Home Medications Current Medication List: was personally reviewed by me Blood Pressure Blood Pressure Findings: Normal blood pressure MDM Narrative The patient was evaluated. I reviewed the patient's EMR. There was a postop note from Dr. Alcaraz which stated that the patient did not need crutches or a walker. I spoke with our special education case manager and it was too late in the day to get a PT and OT eval for rehab at this time. The patient will need to be admitted for observation to have a PT OT evaluation tomorrow morning. IV access was obtained. The patient was given morphine 6 mg IV for pain and Zofran 4 mg ODT for associated nausea. The patient was informed of treatment plan and was happy with plan of care. The hospitalist was consulted for observation. Impression & Plan Unable to ambulate, Closed right tibial fracture, Intractable pain Discharge Plan Visit Data Chief Complaint: Leg Injury/Pain ED Provider: Emmett Jackson ED Midlevel Provider: Leslie Beth Discharge Problem: Unable to ambulate, Closed right tibial fracture, Intractable pain Patient Disposition: Being Evaluated by Hospitalist Condition: Good Forms Stand Alone Forms: My [facility], Important Visit Information Prescriptions Prescriptions: No Action metoprolol tartrate 25 mg Tablet 25 mg PO BID RF: 0 losartan 100 mg Tablet 100 mg PO DAILY RF: 0 metformin 1,000 mg Tablet 1,000 mg PO DAILY RF: 0 aspirin 81 mg Tablet,Delayed Release (Dr/Ec) 81 mg PO DAILY RF: 0 omega-3 fatty acids [Fish Oil Concentrate] 1,000 mg Capsule 1,000 mg PO DAILY RF: 0 clopidogrel 75 mg tablet 75 mg PO DAILY RF: 0 amlodipine 5 mg tablet 10 mg PO DAILY RF: 0 allopurinol 300 mg tablet 300 mg PO DAILY RF: 0 rosuvastatin 40 mg tablet 40 mg PO DAILY RF: 0 fenofibrate nanocrystallized 145 mg Tablet 145 mg PO DAILY RF: 0 hydrocodone-acetaminophen [[place]] 10-325 mg tablet 1 tab PO Q6H PRN (Reason: pain) Qty: 40 RF: 0 Referrals Referrals: Harsh Perez MD [Primary Care Provider] - Discharge Problem: Closed right tibial fracture Qualifiers: Encounter type: subsequent encounter Tibia location: shaft Fracture morphology: comminuted Fracture alignment: displaced Fracture healing: with routine healing Qualified Code(s): S82.251D - Displaced comminuted fracture of shaft of right tibia, subsequent encounter for closed fracture with routine healing
[2019-09-19] MEDS ORDERED: HYDROCODONE/ACETAMINOPHEN 10/325 TAB PO PRN (17:30)
--- NOTE | 2019-09-19 17:54 | History & Physical Report ---
Date of Service September 19, 2019 Assessment & Plan (1) Right fibular fracture: (2) Ambulatory dysfunction: S/P Reduction and Rodding of Right Tibia Fracture performed by Dr. Alcaraz on 09/15/19 Continue pain controlled case discussed with ortho Dr. Alcaraz and recommended no to get any imaging in the Right LE now Toe touch walking as per Dr. Alcaraz No need for official consult as per ortho Dr. Alcaraz Fall precaution PT/OT eval Will need placement to rehab Follow up with orthopedic on discharge Case management consulted for placement Familial hypercholesterolemia: Cont Tricor, Fish Oil, Crestor per home regimen. DM type 2 (diabetes mellitus, type 2) Check Hba1 in am Metformin on hold while in the hospital Will do novolog sliding scale Tobacco abuse Counseling on smoking cessation Gout Continue allopurinol Coronary artery disease: H/o WAYNE to LAD in 2017. Continue ASA 81, Cozaar 100mg PO BID, Metoprolol 25mg PO BID, Crestor and plavix DVT prophylaxis Lovenox 40mg (Dr. Alcaraz agreed with that ) Code Status Full Code Disposition Will need placement to rehab History of Present Illness Chief Complaint: Ambulatory dysfunction Primary Care Provider: Harsh Perez MD 59 y/o M Hx HTN, HLD, DM II, CAD, RORY, recent surgical procedure reduction and rodding of Right Tibia Fracture performed by Dr. Alcaraz. Patient recently discharged home 2 days ago with home health and home PT. He said on discharge he was told that it was okay to do toe-touch walking on Right the leg. He said that he has been having a lot of pain in his RLE. He said that he has been having difficulty to ambulate and is very unsteady. He said he called his PCP and they gave him a prescription for a walker, but the [employer] was not open this weekend and therefore he could get the walker. He said his friend has a walker and let him to borrow the walker. Patient said last night while trying to stand to reach for the walker, he said he felt back to the chair backward like a sitting position. He said he did not hit his head but only bumped his right leg on an object. He said this morning when the physical therapist came to see him at home, he told him that he would need to go to inpatient rehab. Patient said that he has been taking the [place] for the pain every 6 hour but seems the [place] only last for a few hours. Denies any chest pain, palpitation, dizziness, and shortness of breath. Allergies Allergy/AdvReac Type Severity Reaction Status Date / Time albuterol Allergy Severe SHORTNESS Verified 09/15/19 13:26 OF BREATH/THROAT CLOSING ipratropium Allergy Severe SHORTNESS Verified 09/15/19 13:26 OF BREATH/THROAT CLOSING lisinopril AdvReac Intermediate Cough Verified 09/15/19 13:26 Home Medications Home Medications Medication Instructions Recorded Confirmed Type aspirin 81 mg PO DAILY 09/15/19 09/19/19 History losartan 100 mg PO DAILY 09/15/19 09/19/19 History metformin 1,000 mg PO DAILY 09/15/19 09/19/19 History metoprolol tartrate 25 mg PO BID 09/15/19 09/19/19 History allopurinol 300 mg PO DAILY 09/16/19 09/19/19 History amlodipine 10 mg PO DAILY 09/16/19 09/19/19 History clopidogrel 75 mg PO DAILY 09/16/19 09/19/19 History fenofibrate nanocrystallized 145 mg PO DAILY 09/16/19 09/19/19 History omega-3 fatty acids [Fish Oil 1,000 mg PO DAILY 09/16/19 09/19/19 History Concentrate] rosuvastatin 40 mg PO DAILY 09/16/19 09/19/19 History hydrocodone-acetaminophen [[place]] 1 tab PO Q6H PRN #40 tab 09/17/19 09/19/19 Rx Past Med/Surg History Medical History Coronary artery disease (Chronic) 03/2017-NSTEMI, S/P WAYNE to LAD and diagonal DM type 2 (diabetes mellitus, type 2) (Chronic) Familial hypercholesterolemia (Chronic) Gout (Chronic) HLD (hyperlipidemia) (Chronic) HTN (hypertension) (Chronic) Internal fixation device (pin, salas, or screw) infection-inflammation RORY (obstructive sleep apnea) Tobacco abuse (Chronic) WPW (Vmuxi-Lfobrkzks-Mjcjq syndrome) (Chronic) "s/p ablation" Surgical History History of appendectomy (Chronic) Family History Father Hypertension Brother Hypertension Social History Preferred Language: Nauruan Communication Ability: Effective Senior Administrative Assistant Required: No Beliefs That Will Affect Care: None Current Living Situation: Alone Current Living Situation Comment: apartment current occupational status: employed Other Information That Helps Us Care for You: Yes Feels Safe at Home: Yes Safety Concerns: Feels Safe At This Time and Afraid for Self Smoking Status: Current every day smoker Tobacco Type: cigarettes ; Cigarettes Per Day: 4 cigarettes per day ; Do You Dip or Chew Tobacco: No ; Second Hand Exposure: Yes ; Tobacco Cessation Education Requested by Patient: No Hx Alcohol Use: Yes Alcohol type: beer, wine and hard liquor Hx Substance Use: Yes substance use type: marijuana Last Used Substance: Unknown Last Used Substance Other:: 6 months ago Review of Systems Review of Systems: All systems reviewed & are unremarkable except as noted in HPI & below Physical Exam Physical Exam: General- No acute distress Head- atraumatic Eyes- PERRL, EOMI, ENT- oropharynx clear Neck- supple, no JVD Lungs- clear to auscultation Heart- regular rhythm; no murmur Abdomen- normal bowel sounds, soft, nontender Extremities- no calf tenderness, right LE tenderness, swelling, decrease ROM in the right knee and foot Neuro- alert, oriented x 3; PERRL, EOMI; no facial palsy; no dysarthria Skin- warm & dry Results & Data Vital Signs (Past 12 Hours) Vital Signs Temp Pulse Pulse Resp BP BP Pulse Ox 09/19/19 17:15 36.6 C 74 20 142/83 H 98 09/19/19 17:03 81 20 138/79 100 09/19/19 15:03 36.9 C 87 24 133/83 99 (1) Right fibular fracture Encounter type: initial encounter Fibula location: shaft Fracture alignment: displaced Fracture morphology: spiral Fracture type: closed Qualified Code(s): S82.441A - Displaced spiral fracture of shaft of right fibula, initial encounter for closed fracture
[2019-09-19] MEDS ORDERED: GLUCAGON FOR INJ 1 MG VIAL SQ PRN (18:43)
[2019-09-19] MEDS ORDERED: GLUCOSE 40% GEL 15 GM TUBE PO PRN (18:43)
[2019-09-19] MEDS ORDERED: GLUCOSE 10 TABS/TUBE PO PRN (18:43)
[2019-09-19] MEDS ORDERED: DEXTROSE 50% 50 ML SYRINGE IV PRN (18:43)
[2019-09-19] MEDS ORDERED: CARBOHYDRATES FOR HYPOGLYCEMIA PO PRN (18:43)
[2019-09-19] MEDS: ENOXAPARIN INJ 40 MG/0.4 ML SYR SQ SCH (21:45)
[2019-09-19] MEDS: METOPROLOL TARTRATE 25 MG TAB PO SCH (21:45)
[2019-09-19] MEDS: INSULIN ASPART 100 UNITS/ML 3 ML PEN SC SCH (21:46)
[2019-09-19] MEDS: HYDROCODONE/ACETAMINOPHEN 10/325 TAB PO PRN (22:27)
[2019-09-20] MEDS: HYDROCODONE/ACETAMINOPHEN 10/325 TAB PO PRN ×4 (05:07→21:00)
[2019-09-20] MEDS: OMEGA-3 (PURIFIED FISH OIL) 1 GM CAP PO SCH (08:22)
[2019-09-20] MEDS: CLOPIDOGREL BISULFATE 75 MG TAB PO SCH (08:23)
[2019-09-20] MEDS: LOSARTAN POTASSIUM 50 MG TAB PO SCH (08:23)
[2019-09-20] MEDS: AMLODIPINE BESYLATE 5 MG TAB PO SCH (08:23)
[2019-09-20] MEDS: allopurinoL 300 MG TAB PO SCH (08:23)
[2019-09-20] MEDS: METOPROLOL TARTRATE 25 MG TAB PO SCH ×2 (08:23→21:00)
[2019-09-20] MEDS: FENOFIBRATE NANOCRYSTALLIZED 145 MG TABLET PO SCH (08:24)
[2019-09-20] MEDS: ROSUVASTATIN CALCIUM 20 MG TAB PO SCH (08:24)
[2019-09-20] MEDS: ASPIRIN 81 MG ECTAB PO SCH (08:24)
[2019-09-20] MEDS: INSULIN ASPART 100 UNITS/ML 3 ML PEN SC SCH ×4 (08:26→22:03)
[2019-09-20 08:43] LABS: Hematocrit (blood only) 32.7 % (42-52); Hemoglobin 10.7 g/dL (14.0-18.0); Mean Corpuscular Hemoglobin 32.1 pg (25-34); Mean Corpuscular Hgb Conc 32.7 g/dL (32-36); Mean Corpuscular Volume 98.2 fL (80-100); Mean Platelet Volume 9.9 fL (7.4-10.4); Platelet Count 269 K/uL (130-400); RDW Coefficient of Variation 12.7 % (11.5-14.5); RDW Standard Deviation 45.4 fL (36.4-46.3); Red Blood Count 3.33 M/uL (4.7-6.1); White Blood Count 4.99 K/uL (4.8-10.8)
[2019-09-20 09:21] LABS: BUN Creatinine Ratio 23.4 (10-20); Calcium 9.2 mg/dl (8.5-10.1); Creatinine Clr Calc Pharmacy 100.4 ml/min; Est GFR (Non-African American) 87.2; Potassium 4.2 mmol/L (3.5-5.1)
[2019-09-20 10:00] LABS: Estimated Average Glucose 137 mg/dl; Hemoglobin A1C 6.4 % (4.5-5.6)
[2019-09-20] MEDS: ENOXAPARIN INJ 40 MG/0.4 ML SYR SQ SCH (21:00)
--- NOTE | 2019-09-20 23:54 | Hospitalist Progress Note ---
Date of Service September 20, 2019 Assessment & Plan (1) Right fibular fracture: aggressive pain control, Lovenox, referral to SNF, PT/OT (2) Anemia: 2/2 post op state. No active bleeding. Cont to monitor. (3) Familial hypercholesterolemia: Tricor, Fish Oil, Crestor per home regimen. (4) DM type 2 (diabetes mellitus, type 2): Hold Metformin, insulin PRN (5) Coronary artery disease: h/o WAYNE to LAD in 2017. Cont medical management w ASA 81, Cozaar 100mg PO BID, Metoprolol 25mg PO BID, Crestor and Plavix (6) DVT prophylaxis: Lovenox Full Code Dispo-to SNF DO Kathleen Gonzalez Hospitalist Subjective pain controlled with some swelling noted around incision sites pt was unable to ambulate at home as he didn't have any assistive device referral made for SNF o/w doing well no signs/symptoms of infection Review of Systems Review of Systems: All systems reviewed & are unremarkable except as noted in HPI & below Physical Exam Physical Exam: CONSTITUTIONAL: WNWD, vitals as above, generally well- appearing, mild distress 2/2 pain and discomfort at surgical sites. EYES: normal conjunctivae, no scleral icterus ENT: MMM RESPIRATORY: clear to auscultation bilaterally, no crackles, rales or wheezes, normal respiratory effort CARDIOVASCULAR: regular rate and rhythm, S1 and 2 heard without murmurs, gallops or rubs, no JVD, no peripheral edema GASTROINTESTINAL: normal bowel sounds, soft, nontender, nondistended MUSCULOSKELETAL: limited exam 2/2 pain and recent surgery, head is normocephalic and atraumatic, RLE wrapped with dressings that are c/d/i SKIN: warm and dry NEUROLOGIC: CN 2-12 grossly intact, normal cognition, no gross focal deficits, LE NVI bilat PSYCHIATRIC: alert cooperative and oriented to person, place and time. Results & Data Vital Signs (Past 12 Hours) Vital Signs Temp Pulse Resp BP Pulse Ox 09/20/19 20:58 68 135/78 09/20/19 15:16 36.9 C 68 16 114/75 92 Laboratory Results Short CBC 09/20/19 Range/Units 08:19 WBC 4.99 (4.8-10.8) K/uL Hgb 10.7 L (14.0-18.0) g/dL Hct 32.7 L (42-52) % Plt Count 269 (130-400) K/uL BMP 09/20/19 08:19 Sodium 139 Potassium 4.2 Chloride 106 Carbon Dioxide 28 BUN 22 H Creatinine 0.94 Glucose 114 H Calcium 9.2 Medications Administered Current Inpatient Medications Hydrocodone Bitart/Acetaminophen ([place] 10/325) 1 tab PO Q4H PRN PRN Reason: pain Stop: 10/03/19 17:29 Last Admin: 09/20/19 21:00 Dose: 1 tab Documented by: Allopurinol (Zyloprim) 300 mg PO DAILY JENNIFER Stop: 10/20/19 08:59 Last Admin: 09/20/19 08:23 Dose: 300 mg Documented by: Amlodipine Besylate (Norvasc) 10 mg PO DAILY JENNIFER Stop: 10/20/19 08:59 Last Admin: 09/20/19 08:23 Dose: 10 mg Documented by: Aspirin (Ecotrin Ectab) 81 mg PO DAILY JENNIFER Stop: 10/20/19 08:59 Last Admin: 09/20/19 08:24 Dose: 81 mg Documented by: Clopidogrel Bisulfate (Plavix) 75 mg PO DAILY JENNIFER Stop: 10/20/19 08:59 Last Admin: 09/20/19 08:23 Dose: 75 mg Documented by: Dextrose (Dextrose 50%) 25 - 50 ml IV UD PRN; Protocol PRN Reason: Hypoglycemia Protocol Stop: 10/19/19 18:42 Enoxaparin Sodium (Lovenox) 40 mg SQ HS JENNIFER Stop: 10/19/19 20:59 Last Admin: 09/20/19 21:00 Dose: 40 mg Documented by: Fenofibrate (Tricor) 145 mg PO DAILY JENNIFER Stop: 10/20/19 08:59 Last Admin: 09/20/19 08:24 Dose: 145 mg Documented by: Fish Oil ([place]-3 (Purified Fish Oil)) 1 gm PO DAILY JENNIFER Stop: 10/20/19 08:59 Last Admin: 09/20/19 08:22 Dose: 1 gm Documented by: Glucagon (Glucagen) 1 mg SQ UD PRN; Protocol PRN Reason: Hypoglycemia Protocol Stop: 10/19/19 18:42 Glucose (Dex4 Glucose) 4 - 8 tabs PO UD PRN; Protocol PRN Reason: Hypoglycemia Protocol Stop: 10/19/19 18:42 Glucose (Glucose 40%) 15 - 30 gm PO UD PRN; Protocol PRN Reason: Hypoglycemia Protocol Stop: 10/19/19 18:42 Insulin Aspart (Novolog Flexpen) 0 units SC ACHS JENNIFER Stop: 10/19/19 20:59 Last Admin: 09/20/19 22:03 Dose: Not Given Documented by: Losartan Potassium (Cozaar) 100 mg PO DAILY JENNIFER Stop: 10/20/19 08:59 Last Admin: 09/20/19 08:23 Dose: 100 mg Documented by: Metoprolol Tartrate (Lopressor) 25 mg PO BID JENNIFER Stop: 10/19/19 20:59 Last Admin: 09/20/19 21:00 Dose: 25 mg Documented by: Miscellaneous (Carbohydrates For Hypoglycemia) 15 - 30 gm PO UD PRN PRN Reason: Hypoglycemia Protocol Stop: 10/19/19 18:42 Rosuvastatin Calcium (Crestor) 40 mg PO DAILY JENNIFER Stop: 10/20/19 08:59 Last Admin: 09/20/19 08:24 Dose: 40 mg Documented by: (1) Right fibular fracture Encounter type: initial encounter Fibula location: shaft Fracture alignment: displaced Fracture morphology: spiral Fracture type: closed Qualified Code(s): S82.441A - Displaced spiral fracture of shaft of right fibula, initial encounter for closed fracture (2) DM type 2 (diabetes mellitus, type 2) Diabetes mellitus longterm insulin use: unspecified longterm insulin use status Diabetes mellitus complication status: with other specified complication Qualified Code(s): E11.69 - Type 2 diabetes mellitus with other specified complication (3) Coronary artery disease Coronary Disease-Associated Artery/Lesion type: [place] artery [place] vs. transplanted heart: [place] heart Associated angina: angina presence unspecified Qualified Code(s): I25.10 - Atherosclerotic heart disease of [place] coronary artery without angina pectoris
[2019-09-21] MEDS: HYDROCODONE/ACETAMINOPHEN 10/325 TAB PO PRN ×4 (00:25→21:50)
[2019-09-21] MEDS ORDERED: POLYETHYLENE (MIRALAX) 17 GM PACK PO STA (06:24)
[2019-09-21] MEDS ORDERED: DOCUSATE SODIUM/SENNA 50/8.6MG TAB PO SCH ×2 (06:25→21:00)
[2019-09-21 06:48] LABS: Hematocrit (blood only) 30.3 % (42-52); Hemoglobin 10.5 g/dL (14.0-18.0); Mean Corpuscular Hemoglobin 32.9 pg (25-34); Mean Corpuscular Hgb Conc 34.7 g/dL (32-36); Platelet Count 242 K/uL (130-400); RDW Coefficient of Variation 12.8 % (11.5-14.5); RDW Standard Deviation 44.3 fL (36.4-46.3); Red Blood Count 3.19 M/uL (4.7-6.1); White Blood Count 5.56 K/uL (4.8-10.8)
[2019-09-21 07:15] LABS: BUN Creatinine Ratio 20.7 (10-20); Creatinine Clr Calc Pharmacy 101.5 ml/min; Est GFR (African American) 102.3; Est GFR (Non-African American) 88.3; Potassium 4.3 mmol/L (3.5-5.1)
[2019-09-21] MEDS: LOSARTAN POTASSIUM 50 MG TAB PO SCH (08:19)
[2019-09-21] MEDS: ROSUVASTATIN CALCIUM 20 MG TAB PO SCH (08:20)
[2019-09-21] MEDS: FENOFIBRATE NANOCRYSTALLIZED 145 MG TABLET PO SCH (08:20)
[2019-09-21] MEDS: METOPROLOL TARTRATE 25 MG TAB PO SCH ×2 (08:20→21:48)
[2019-09-21] MEDS: allopurinoL 300 MG TAB PO SCH (08:20)
[2019-09-21] MEDS: OMEGA-3 (PURIFIED FISH OIL) 1 GM CAP PO SCH (08:20)
[2019-09-21] MEDS: ASPIRIN 81 MG ECTAB PO SCH (08:21)
[2019-09-21] MEDS: CLOPIDOGREL BISULFATE 75 MG TAB PO SCH (08:21)
[2019-09-21] MEDS: AMLODIPINE BESYLATE 5 MG TAB PO SCH (08:21)
[2019-09-21] MEDS: INSULIN ASPART 100 UNITS/ML 3 ML PEN SC SCH ×4 (08:40→21:50)
--- NOTE | 2019-09-21 09:15 | Hospitalist Progress Note ---
Date of Service September 21, 2019 Assessment & Plan (1) Right fibular fracture: (2) Ambulatory dysfunction: S/P Reduction and Rodding of Right Tibia Fracture performed by Dr. Alcaraz on 09/15/19 Continue pain controlled case discussed with ortho Dr. Alcaraz and recommended no to get any imaging in the Right LE now Toe touch walking as per Dr. Alcaraz No need for official consult as per ortho Dr. Alcaraz Fall precaution PT/OT eval Will need placement to rehab Follow up with orthopedic on discharge Case management consulted for placement (1) Post-operative state: Fall with subsequent fracture. Underwent reduction with rodding of the R tibia fracture. Cont pain control efforts with addition of scheduled Tylenol. Opiates PRN. Activity per Ortho. (2) Right fibular fracture: (3) Tibia fracture: (4) Familial hypercholesterolemia: Cont Tricor, Fish Oil, Crestor per home regimen. (5) DM type 2 (diabetes mellitus, type 2): Metformin on hold. Insulin correction factor ordered, currently at goal. (6) Tobacco abuse: (7) Gout: allopurinol per home regimen. (8) Coronary artery disease: h/o WAYNE to LAD in 2017. Cont medical management wtih ASA 81, Cozaar 100mg PO BID, Metoprolol 25mg PO BID, Crestor. Plavix on hold post-operatively until OK with Ortho to restart. (9) DVT prophylaxis: Lovenox 40mg (Dr. Alcaraz agreed with that ) Code Status Full Code Labs checked Disposition [place] tomorrow ROS-No Headache, No Visual Changes, No Nausea, No Vomiting, No Fever, No Chills, No Neck Pain or Stiffness, No Chest Pain, No Palpitations, No SOB, No MCGHEE, No Cough, No Sputum, No Wheezing, No Abdominal Pain, No Diarrhea, No Hematemesis, No Hemoptysis, No Unexpected Weight Loss, No Flank pain, No Melena, No Hematochezia, No Frequency, No Urgency, No Burning, No Hematuria, No Rashes, No Diaphoresis. Appetite is Normal Physical Exam Gen-AAO x 3, NAD, Afebrile Head-NCAT, EOMI, PERRLA, Anicteric Sclera, No Posterior Pharyngeal Erythema Neck-Supple, No JVD, No Thyromegaly, No Masses, No LAD, No Bruits Lungs-Clear to Auscultation Bilaterally, No Rales, No Rhonchi, No Wheezing, No Crepitus Chest-No S4, +S1, +S2, No S3, No Murmurs, No Rubs, No Gallops, No Ectopy Abdomen-Soft, Bowel Sounds Present, Non Tender, Non Distended, No Hepatomegaly, No Splenomegaly, No Palpable Masses, No Rebound, No Rigidity, No Guarding Musculoskeletal-Full Range of Motion Bilaterally, No CVAT Extremities-No Cyanosis, No Clubbing, No Edema Nuero-Cranial Nerves II-XII grossly intact, Motor WNL, DTRs WNL, Strength WNL, Non Focal Psych-Normal Mood (3) Anemia: (4) DVT prophylaxis: Results & Data Vital Signs (Past 12 Hours) Vital Signs Temp Pulse Resp BP Pulse Ox 09/21/19 07:05 36.7 C 59 L 18 126/79 95 09/20/19 23:30 36.7 C 68 18 125/76 92 (1) Right fibular fracture Encounter type: initial encounter Fibula location: shaft Fracture alignment: displaced Fracture morphology: spiral Fracture type: closed Qualified Code(s): S82.441A - Displaced spiral fracture of shaft of right fibula, initial encounter for closed fracture
[2019-09-21] MEDS ORDERED: MAGNESIUM HYDROXIDE SUSP 30 ML UDC PO PRN (18:22)
[2019-09-21] MEDS ORDERED: POLYETHYLENE (MIRALAX) 17 GM PACK PO PRN (18:22)
[2019-09-21] MEDS: ENOXAPARIN INJ 40 MG/0.4 ML SYR SQ SCH (21:48)
[2019-09-22] MEDS: HYDROCODONE/ACETAMINOPHEN 10/325 TAB PO PRN ×3 (01:51→10:16)
[2019-09-22 07:28] LABS: Hematocrit (blood only) 31.1 % (42-52); Hemoglobin 10.6 g/dL (14.0-18.0); Mean Corpuscular Hemoglobin 32.4 pg (25-34); Mean Corpuscular Hgb Conc 34.1 g/dL (32-36); Mean Corpuscular Volume 95.1 fL (80-100); Platelet Count 269 K/uL (130-400); RDW Coefficient of Variation 12.8 % (11.5-14.5); RDW Standard Deviation 43.7 fL (36.4-46.3); Red Blood Count 3.27 M/uL (4.7-6.1); White Blood Count 4.44 K/uL (4.8-10.8)
[2019-09-22 08:03] LABS: Calcium 8.8 mg/dl (8.5-10.1); Est GFR (Non-African American) 92.3; Potassium 4.2 mmol/L (3.5-5.1)
[2019-09-22 08:06] LABS: Albumin Globulin Ratio 0.8 (0.9-2); Bilirubin,Total 0.5 mg/dl (0.2-1); Globulin 3.6 gm/dl (2.5-4.0); Total Protein 6.6 gm/dl (6.4-8.2)
[2019-09-22] MEDS: FENOFIBRATE NANOCRYSTALLIZED 145 MG TABLET PO SCH (08:40)
[2019-09-22] MEDS: allopurinoL 300 MG TAB PO SCH (08:40)
[2019-09-22] MEDS: OMEGA-3 (PURIFIED FISH OIL) 1 GM CAP PO SCH (08:40)
[2019-09-22] MEDS: ASPIRIN 81 MG ECTAB PO SCH (08:40)
[2019-09-22] MEDS: CLOPIDOGREL BISULFATE 75 MG TAB PO SCH (08:40)
[2019-09-22] MEDS: LOSARTAN POTASSIUM 50 MG TAB PO SCH (08:40)
[2019-09-22] MEDS: METOPROLOL TARTRATE 25 MG TAB PO SCH (08:41)
[2019-09-22] MEDS: AMLODIPINE BESYLATE 5 MG TAB PO SCH (08:41)
[2019-09-22] MEDS: ROSUVASTATIN CALCIUM 20 MG TAB PO SCH (08:41)
[2019-09-22] MEDS: INSULIN ASPART 100 UNITS/ML 3 ML PEN SC SCH ×2 (08:46→12:35)
--- NOTE | 2019-09-22 09:43 | Discharge Summary ---
Date of Service September 22, 2019 Admission HPI Per Admitting Provider 59 y/o M Hx HTN, HLD, DM II, CAD, RORY, recent surgical procedure reduction and rodding of Right Tibia Fracture performed by Dr. Alcaraz. Patient recently discharged home 2 days ago with home health and home PT. He said on discharge he was told that it was okay to do toe-touch walking on Right the leg. He said that he has been having a lot of pain in his RLE. He said that he has been having difficulty to ambulate and is very unsteady. He said he called his PCP and they gave him a prescription for a walker, but the [employer] was not open this weekend and therefore he could get the walker. He said his friend has a walker and let him to borrow the walker. Patient said last night while trying to stand to reach for the walker, he said he felt back to the chair backward like a sitting position. He said he did not hit his head but only bumped his right leg on an object. He said this morning when the physical therapist came to see him at home, he told him that he would need to go to inpatient rehab. Patient said that he has been taking the [place] for the pain every 6 hour but seems the [place] only last for a few hours. Denies any chest pain, palpitation, dizziness, and shortness of breath. Admission Exam Per Admitting Provider General- No acute distress Head- atraumatic Eyes- PERRL, EOMI, ENT- oropharynx clear Neck- supple, no JVD Lungs- clear to auscultation Heart- regular rhythm; no murmur Abdomen- normal bowel sounds, soft, nontender Extremities- no calf tenderness, right LE tenderness, swelling, decrease ROM in the right knee and foot Neuro- alert, oriented x 3; PERRL, EOMI; no facial palsy; no dysarthria Skin- warm & dry Principal Diagnosis (1) Right fibular fracture: (2) Ambulatory dysfunction: (3) Tibia fracture: (4) Familial hypercholesterolemia: (5) DM type 2 (diabetes mellitus, type 2): (6) Tobacco abuse: (7) Gout: (8) Coronary artery disease: Discharge Exam Gen-AAO x 3, NAD, Afebrile Head-NCAT, EOMI, PERRLA, Anicteric Sclera, No Posterior Pharyngeal Erythema Neck-Supple, No JVD, No Thyromegaly, No Masses, No LAD, No Bruits Lungs-Clear to Auscultation Bilaterally, No Rales, No Rhonchi, No Wheezing, No Crepitus Chest-No S4, +S1, +S2, No S3, No Murmurs, No Rubs, No Gallops, No Ectopy Abdomen-Soft, Bowel Sounds Present, Non Tender, Non Distended, No Hepatomegaly, No Splenomegaly, No Palpable Masses, No Rebound, No Rigidity, No Guarding Musculoskeletal-Full Range of Motion Bilaterally, No CVAT Extremities-No Cyanosis, No Clubbing, No Edema Nuero-Cranial Nerves II-XII grossly intact, Motor WNL, DTRs WNL, Strength WNL, Non Focal Psych-Normal Mood Discharge Data Allergies Allergy/AdvReac Type Severity Reaction Status Date / Time albuterol Allergy Severe SHORTNESS Verified 09/15/19 13:26 OF BREATH/THROAT CLOSING ipratropium Allergy Severe SHORTNESS Verified 09/15/19 13:26 OF BREATH/THROAT CLOSING lisinopril AdvReac Intermediate Cough Verified 09/15/19 13:26 Consultations 09/19/19 15:15 ED Decision to Admit Stat 09/19/19 17:30 Consult Case Management - Discharge Planning Routine 09/20/19 11:01 Consult Case Management - Discharge Planning Routine Hospital Course (1) Right fibular fracture: pain control, Lovenox (2) Anemia: 2/2 post op state. No active bleeding. Cont to monitor. (3) Familial hypercholesterolemia: Tricor, Fish Oil, Crestor per home regimen. (4) DM type 2 (diabetes mellitus, type 2): Metformin, insulin PRN (5) Coronary artery disease: h/o WAYNE to LAD in 2017. Cont medical management w ASA 81, Cozaar 100mg PO BID, Metoprolol 25mg PO BID, Crestor and Plavix (6) DVT prophylaxis: Lovenox Full Code Dispo-to ARF Total Time Total Time Spent Total Time Spent (In Minutes): 45 Total Time Includes: Examination of the Patient, Discharge Planning, Medication Reconciliation and Communication With Other Providers Discharge Plan Discharge Items Patient Disposition: Transfer [facility] Fac Reason For Visit: AMBULATORY DYSFUNCTION Discharge Diagnosis: (1) Right fibular fracture: (2) Ambulatory dysfunction: (3) Tibia fracture: (4) Familial hypercholesterolemia: (5) DM type 2 (diabetes mellitus, type 2): (6) Tobacco abuse: (7) Gout: (8) Coronary artery disease: Condition on Discharge: Good Activity: Per Instructions section Lifting: None Bathing: Keep incision dry Sexual Activity: Wait until after follow-up appointment Exercise/Sports: None Weightbearing: Full weightbearing Weightbearing Comment: FWW Non-emergency contact: Primary Care Provider and Surgeon Call non-emergency contact if: you have any medication questions Follow-up/Referrals: Harsh Perez MD [Primary Care Provider] - Diet: Carb Consistent or DM2 and Heart Healthy Addtl Attending Provider Instructions: none Pending Studies at Discharge: No Stand-Alone Forms: My [facility] [employer] Skilled Items Patient informed of condition?: Yes DNR: No Discharge Level of Care: Acute rehab Communicable Disease: No Discharge Prognosis: Improving Lines: None Urinary Catheter: No Medications and DC Order Prescriptions: New polyethylene glycol 3350 [Miralax] 17 gram Powder In Packet 17 g PO DAILY PRN (Reason: constipation) Qty: 30 RF: 0 sennosides-docusate sodium [Senokot-S] 8.6-50 mg Tablet 2 tab PO HS Qty: 60 RF: 0 magnesium hydroxide [Milk of Magnesia] 400 mg/5 mL Suspension 30 ml PO Q6H PRN (Reason: constipation) Qty: 250 RF: 0 enoxaparin 40 mg/0.4 mL Syringe 40 mg subcut HS Qty: 20 RF: 0 Continued metoprolol tartrate 25 mg Tablet 25 mg PO BID RF: 0 losartan 100 mg Tablet 100 mg PO DAILY RF: 0 metformin 1,000 mg Tablet 1,000 mg PO DAILY RF: 0 aspirin 81 mg Tablet,Delayed Release (Dr/Ec) 81 mg PO DAILY RF: 0 omega-3 fatty acids [Fish Oil Concentrate] 1,000 mg Capsule 1,000 mg PO DAILY RF: 0 clopidogrel 75 mg tablet 75 mg PO DAILY RF: 0 amlodipine 5 mg tablet 10 mg PO DAILY RF: 0 allopurinol 300 mg tablet 300 mg PO DAILY RF: 0 rosuvastatin 40 mg tablet 40 mg PO DAILY RF: 0 fenofibrate nanocrystallized 145 mg Tablet 145 mg PO DAILY RF: 0 No Action hydrocodone-acetaminophen [[place]] 10-325 mg tablet 1 tab PO Q6H PRN (Reason: pain) Qty: 40 RF: 0 Discharge Orders: Discharge Order (Routine); Ordered 09/22/19 Ordered By: Bonifacio Espinosa Admission Data Admit Date/Time: 09/21/19 13:21 Attending Provider: Bonifacio Espinosa Admit Provider: Neeru Dhaliwal Primary Care Provider: Harsh Perez Other Providers: Jess Mackay [place] ; Neeru Dhaliwal
== END 2019-09-22 14:24 | DRG 561 ==
LOC: ED 14:55 → 3W 14:55 → SUATTDRO 16:27 → 3W 17:03